=== PATIENT | female | born 1990 | race Caucasian/White ===

== ENCOUNTER 2016-10-19 10:05 | Outpatient (CLI) | payer MEDICAID ==
[~2016-10-19] VITALS: Ht 162.6 cm; Wt 89.0 kg
[~2016-10-19 10:05] MED LIST: ACET325T38 PO; ACHYD1T PO; BUTA1CAP39 PO; CEPH-507 PO; CEPH500C PO; CPR500T PO; CYCL10TA9 PO; DCS100C PO; DOCU100C37 PO; HYDR-3583 PO; HYDR-3714 PO; HYDR-3812 PO; HYDR-3820 PO; IBP800T PO; IBUP-1773 PO; Ibuprofen PO; LAXATIVE; LVT.05T; NAPR-243 PO; NITR-65 PO; NITR100C3 PO; ONDA4TAB8 PO; ONDAN4ODT PO; ONDN4T PO; PENI250T4 PO; PENI500T PO; PHEN-483 PO; PHEN200T27 PO; PREN1TAB19 PO; PREN1TAB39; PREN1TAB76 PO; SERT25TA PO; SIME80TA16 PO; SULF1TAB38 PO; TOPAMAX; TRAM50TA2 PO; TRM50T PO; flexeril; zoloft
[2016-10-19] MEDS ORDERED: PHEN-483 PO (10:14)
[2016-10-19] MEDS ORDERED: FLUO10CA29 PO (10:14)
[2016-10-19 10:17] VITALS: BP 124/84
[2016-10-19 11:00] LABS: BASOPHILS % (AUTO) 0 % (0-10); EOSINOPHILS # (AUTO) 0.1 10^3/uL (0.0-0.3); EOSINOPHILS % (AUTO) 2 % (0-10); LYMPHOCYTES % (AUTO) 30 % (12-44); MEAN CORPUSCULAR HEMOGLOBIN 29 PG (25-34); MEAN CORPUSCULAR HGB CONC 34 G/DL (32-36); MEAN CORPUSCULAR VOLUME 84 FL (80-99); MEAN PLATELET VOLUME 9.7 FL (7.4-10.4); MONOCYTES # (AUTO) 0.4 X 10^3 (0.0-1.0); MONOCYTES % (AUTO) 6 % (0-12); NEUTROPHILS # (AUTO) 4.2 X 10^3 (1.8-7.8); NEUTROPHILS % (AUTO) 63 % (42-75); PLATELET COUNT 340 10^3/uL (130-400); RED BLOOD COUNT 4.68 10^6/uL (4.35-5.85); RED CELL DISTRIBUTION WIDTH 13.1 % (10.0-14.5); WHITE BLOOD COUNT 6.6 10^3/uL (4.3-11.0)
[2016-10-26] MEDS ORDERED: SIME80TA16 PO (09:12)
[2016-10-26] MEDS ORDERED: HYDR-3816 PO (09:12)
[2016-10-26] MEDS ORDERED: DOCU100C37 PO (09:12)
[2016-10-26] MEDS ORDERED: IBUP-1773 PO (09:12)
[2016-10-27] MEDS ORDERED: OXYC-471 PO (07:28)
[2016-10-30] MEDS ORDERED: AMOX-355 PO (08:32)
[2016-10-30] MEDS ORDERED: OXYC-202 PO (08:32)
[2016-10-30] MEDS ORDERED: LACT20SO2 PO (08:32)
== END 2016-10-19 11:46 | disposition home or self-care (01) ==
LOC: PREOP 10:05
PROVIDERS: ATTEND Obstetrics & Gynecology
DX: Z01.812 Encounter for preprocedural laboratory examination (principal); N80.9 Endometriosis, unspecified
CPT/HCPCS: 36415; 85025; 86850; 86900; 86901; 87081

== ENCOUNTER 2016-10-26 06:07 | Day surgery (SDC) | payer MEDICAID ==
[~2016-10-26] VITALS: Ht 162.6 cm; Wt 89.0 kg
[~2016-10-26 06:07] MED LIST changes: +FLUO10CA29 PO
[2016-10-26] MEDS: LACTATED RINGERS 1,000 ML IV PRN ×2 (06:20→08:25)
[2016-10-26] MEDS ORDERED: metroNIDAZOLE 500MG/100ML IVPB 100 ML ONE (06:23)
[2016-10-26 06:37] VITALS: BP 110/66
[2016-10-26] MEDS ORDERED: LIDOCAINE JELLY 2% (XYLOCAINE) 5 ML TUBE ONE (06:37)
[2016-10-26] MEDS ORDERED: LIDOCAINE PF 2% 10 ML (XYLOCAINE) AMP ONE (06:37)
[2016-10-26] MEDS ORDERED: DEXAMETHASONE PF 10 MG/ML (DECADRON) VIAL ONE (06:37)
[2016-10-26] MEDS ORDERED: proPOfol 200 MG/20 ML (DIPRIVAN) VIAL IV ONE (06:37)
[2016-10-26] MEDS ORDERED: ROCURONIUM 50 MG/5 ML (ZEMURON) VIAL IV ONE (06:37)
[2016-10-26] MEDS ORDERED: MIDAZOLAM 2 MG/2 ML (VERSED) VIAL ONE (06:37)
[2016-10-26] MEDS ORDERED: fentaNYL INJECTION 250 MCG/5 ML AMP ONE (06:37)
[2016-10-26] MEDS ORDERED: ONDANSETRON 4 MG/2 ML (SDV) Z0FRAN ONE ×2 (06:37→08:57)
[2016-10-26] MEDS ORDERED: LACTATED RINGERS 1,000 ML IV ONE ×2 (06:37→08:24)
[2016-10-26] MEDS ORDERED: BUPIVACAINE 0.25% 30 ML (SENSORCAINE) VIAL ONE (06:43)
--- NOTE | 2016-10-26 06:49 | Progress Note-Pre Operative ---
Pre-Operative Progress Note H&P Reviewed The H&P was reviewed, patient examined and no changes noted. Date H&P Reviewed: Oct 26, 2016 Time H&P Reviewed: 06:50 Pre-Operative Diagnosis: CPP, Endometriosis, Dysmenorrhea, Menorrhagia PATRICIO VIEIRA DO Oct 26, 2016 6:49 am
[2016-10-26] MEDS ORDERED: metroNIDAZOLE 500 MG/100 ML IVPB (PRE-MIX) IV ONE (07:15)
[2016-10-26] MEDS ORDERED: ceFAZolin 2 GM/NS 50 ML IVPB IV ONE ×2 (07:15)
[2016-10-26] MEDS ORDERED: NEOSTIGMINE (BLOXIVERZ ) 1 MG/1ML 10 ML VIAL ONE (08:22)
[2016-10-26] MEDS ORDERED: GLYCOPYRROLATE 0.2 MG/ML (ROBINUL) 2 ML VIAL ONE (08:22)
[2016-10-26] MEDS ORDERED: morphine INJ 10 MG/ML 1ML (SYR OR VIAL) ONE ×2 (08:26→08:57)
[2016-10-26] MEDS ORDERED: SEVOFLURANE (ULTANE) 15 ML INHAL SOLN ONE (08:29)
[2016-10-26] MEDS ORDERED: MEPERIDINE (DEMEROL) INJ 50 MG/ML IVP PRN (08:45)
[2016-10-26] MEDS ORDERED: ONDANSETRON 4 MG/2 ML (SDV) Z0FRAN IVP PRN (08:45)
[2016-10-26] MEDS ORDERED: MEPERIDINE (DEMEROL) INJ 50 MG/ML ONE (08:57)
[2016-10-26] MEDS: morphine INJ 10 MG/ML 1ML (SYR OR VIAL) IVP PRN ×2 (09:06→09:18)
--- NOTE | 2016-10-26 09:10 | Discharge Inst-Women's Service ---
Discharge Inst-Women's Serv Depart Medication/Instructions New, Converted or Re-Newed RX: RX on Chart Consults/Follow Up Additional Follow Up: Yes Activity Activity: Activity as Tolerated Driving Instructions: No Driving for 1 Week NO SMOKING: NO SMOKING Nothing Inside Vagina: No Douching, No [employer], No Tampons Diet Discharge Diet: No Restrictions Symptoms to Report to : Bleeding Excessive, Pain Increased, Fever Over 101 Degrees F, Vaginal Bleeding Increase, Questions/Concerns For Any Problems or Questions: Contact Your Physician Skin/Wound Care Infection Signs and Symptoms: Increased Redness, Foul Odor of Wound, Increased Drainage, Skin Itchy or Has a Rash, Increased Swelling, Temperature Above 101 F Operative Area Clean and Dry: Keep Incision Clean/Dry Stitches/Atkins/Dermabond: Dermabond, Care of Stitches Bathing Instructions: PATRICIO Bailon DO Oct 26, 2016 9:10 am
[2016-10-26] MEDS ORDERED: IBUP-1773 PO (09:12)
[2016-10-26] MEDS ORDERED: DOCU100C37 PO (09:12)
[2016-10-26] MEDS ORDERED: HYDR-3816 PO (09:12)
[2016-10-26] MEDS ORDERED: SIME80TA16 PO (09:12)
[2016-10-26] MEDS ORDERED: ONDANSETRON 4 MG/2 ML (SDV) Z0FRAN IV PRN (09:15)
[2016-10-26] MEDS ORDERED: ANTACID SUSP 30 ML UDC (MYLANTA) PO PRN (09:15)
[2016-10-26] MEDS ORDERED: CHLORASEPTIC LOZENGE MM PRN (09:15)
[2016-10-26] MEDS ORDERED: DOCUSATE SODIUM 100 MG (COLACE) CAP PO PRN (09:15)
[2016-10-26] MEDS ORDERED: ZOLPIDEM 5 MG (AMBIEN) TAB PO PRN (09:15)
[2016-10-26] MEDS ORDERED: BUPIVACAINE 0.25% 30 ML (SENSORCAINE) VIAL INJ ONE (09:15)
[2016-10-26] MEDS: KETOROLAC 30 MG/ML VIAL IV PRN ×3 (09:17→20:17)
--- NOTE | 2016-10-26 09:21 | Progress Note-Post Operative ---
Post-Operative Progess Note Working Manager Milena Jordan Pre-Operative Diagnosis CPP, Endometriosis, Dysmenorrhea, Menorrhagia Post-Operative Diagnosis same Post-Op Procedure Note Date of Procedure: Oct 26, 2016 Name of Procedure: RATLH Anesthesia Type GETA Estimated blood loss (mL): 50 PATRICIO VIEIRA DO Oct 26, 2016 09:21
[2016-10-26 10:30] VITALS: BP 96/63
[2016-10-26] MEDS: HYDROcodone/APAP 7.5 MG/325 MG (LORTAB, LORCET PLUS) TABLET PO PRN ×2 (11:35→18:07)
[2016-10-26 11:51] VITALS: BP 98/63
[2016-10-26] MEDS: LACTATED RINGERS 1,000 ML IV SCH ×3 (12:03→22:15)
[2016-10-26] MEDS ORDERED: FLU TRIvalent (5 YOA+) 2016-17 (AFLURIA) 0.5 ML IM ONE (14:15)
[2016-10-26] MEDS ORDERED: PROMETHAZINE INJ 25 MG/ML (PHENERGAN) AMP IVP ONE (15:15)
[2016-10-26 15:25] VITALS: BP 113/65
[2016-10-26] MEDS: SIMETHICONE 80 MG (MYLICON) CHEW PO PRN (18:19)
[2016-10-26 22:15] VITALS: BP 105/59
[2016-10-27] MEDS: HYDROcodone/APAP 7.5 MG/325 MG (LORTAB, LORCET PLUS) TABLET PO PRN ×2 (00:45→06:30)
[2016-10-27 03:20] VITALS: BP 103/63
[2016-10-27] MEDS: IBUPROFEN 600 MG (MOTRIN) TAB PO PRN ×2 (03:24→09:02)
[2016-10-27] MEDS: SIMETHICONE 80 MG (MYLICON) CHEW PO PRN ×2 (04:40→09:03)
[2016-10-27] MEDS: LACTATED RINGERS 1,000 ML IV SCH (06:18)
[2016-10-27] MEDS ORDERED: HYDROmorphone (DILAUDID) 2 MG/ML VIAL ONE (07:17)
--- NOTE | 2016-10-27 07:26 | Progress Note-Standard ---
Standard Progress Note Progress Notes/Assess & Plan Progress/Assessment & Plan Patient kept overnight due to inability to urinate and pain control issues. Otherwise doing well, tolerating regular diet. Vital Sign - Last 12Hours 10/26/16 10/27/16 22:15 03:20 Temp 98.4 98.5 Pulse 80 70 Resp 18 18 B/P 105/59 103/63 Pulse Ox 100 98 O2 Delivery Room Air Room Air Intake and Output 10/27/16 00:00 Intake Total 2822 ml Output Total 450 ml Balance 2372 ml Incisions: c/d/i Diagnosis: POD 1 RATLH Urinary retention P: Drew replaced last night, remove this morning Pain med switched to percocet DC later this morning with controlled pain and urination. PATRICIO VIEIRA DO Oct 27, 2016 7:26 am
[2016-10-27] MEDS ORDERED: OXYC-471 PO (07:28)
[2016-10-27] MEDS ORDERED: HYDROmorphone (DILAUDID) 2 MG/ML VIAL IVP NR (07:30)
[2016-10-27] MEDS ORDERED: oxyCODONE/APAP 5/325MG (PERCOCET 5) TABLET PO PRN (07:30)
[2016-10-27 08:05] VITALS: BP 103/64
--- NOTE | 2016-10-27 08:36 | OPERATIVE REPORT ---
PROCEDURE PHYSICIAN: MARITO VIEIRA DATE OF PROCEDURE: 10/26/2016 PREOPERATIVE DIAGNOSIS: 1. 26-year-old female with chronic pelvic pain. 2. Endometriosis. POSTOPERATIVE DIAGNOSES: 1. 26-year-old female with chronic pelvic pain. 2. Endometriosis. 3. Pelvic dense scar tissue. PROCEDURE: Robotic assisted total laparoscopic hysterectomy with bilateral salpingectomy. SURGEON: Dr. Marito Vieira. GUIDE DOG TRAINER: Milena Jordan APRN. ANESTHESIA: General endotracheal. ESTIMATED BLOOD LOSS: 50 mL. URINE OUTPUT: 20 mL. FLUIDS: 1200 mL of lactated ringer solution. FINDINGS: Hyperemic appearing uterus with multiple filmy and dense adhesions of the anterior posterior pelvic peritoneum, dense adhesions of the bladder to the anterior lower uterine segment, grossly normal appearing bilateral ovaries. SPECIMEN SENT: Uterus, bilateral fallopian tubes. INDICATIONS FOR THE PROCEDURE: This 26-year-old female is a patient who is well establish in my office and I have been taking care of her for the last 3 years. She has undergone 2 pregnancies under my care; both of which were complicated by chronic pelvic pain as well as necessitating . Prior to this last the patient had tried multiple contraceptive methods to help prevent recurrence of endometriosis as she has an ongoing diagnosis of this. We have attempted Depo-Provera. We attempted Mirena IUD. We attempted oral contraceptive pills all with no improvement in her pain. During this last , we both had discussed extensively proceeding with hysterectomy after the was complete. The risk of this was discussed with the patient throughout the . At her visit we once again revisited this and the patient was very agreeable to move forward due to failed conservative measures. The risk of the procedure was discussed with the patient in detail including risk of bleeding, infection, damaging any of the surrounding structures, including, but not limited to the bowel, bladder, ureter, damage to the anterior abdominal wall, possible risk of bleeding and need for blood transfusion, risk from anesthesia, hematoma formation, risk for subsequent procedures any complications should occur, even . After everything was discussed with the patient, consent was obtained in the preoperative area and the patient was taken to the operating room. OPERATIVE REPORT IN DETAIL: Once in the operating room, general anesthesia was found to be adequate. She was placed in dorsal lithotomy position, prepped and draped in the normal sterile fashion. Drew catheter was placed using sterile technique. A weighted speculum was inserted in the patient's vagina. A right angle retractor was used to visualize the cervix. It was grasped at the 12 o'clock position using a single tooth tenaculum. An 0 Vicryl suture was placed through the anterior lip of the cervix and the uterine cavity depth is sounded and found to be 8 cm. I then gently dilate the cervix using Hegar dilators and maximum dilatation of 5 mm. I then advanced an 8 mm uterine manipulator balloon on the end of the KIMBERLI and deploy the balloon. I advance a 3.5 cm colpotomy ring into the vaginal fornix, which offers excellent uterine manipulation on bimanual examination. I then perform a change of gloves and take my attention the abdomen where supraumbilically I infiltrate this area using 0.25% Marcaine and make an 8 mm incision and direct a Veress needle through this incision until intraperitoneal placement is confirmed using the saline drop test. An opening pressure 2 mmHg is noted. I proceed to maximum pressure of 15 mmHg using CO2 gas as my insufflation medium. I then remove the Veress needle, introduce an 8 mm blunt da Qiana camera trocar through this incision until intraperitoneal placement is confirmed using the da Qiana laparoscope. I then have the patient placed in steep Trendelenburg and I am able to visualize all the anatomy described in my findings above. I then place lateral trocars; these are both 8 mm trocars. They are placed under direct visualization of the laparoscope. Incisions are made using a knife and the skin is infiltrated using 0.25% Marcaine. Once the trocars are in place, I bring the da Qiana robot and dock it in the appropriate fashion. I perform the following of the procedure using the following instruments; I place the da Qiana vessel sealer in the left hand and monopolar kevyn in the right hand. The following dissection is performed bilaterally. I start at the utero-ovarian ligament, bipolar cauterize this and transect it using the vessel sealer. I then create a window through the mesosalpinx using the monopolar kevyn and take this distally, amputating the fallopian tube from the surrounding structures. I then grasp the round ligament, bipolar cauterize this and transect it using the vessel sealer. I then grasp the entire broad ligament, which is densely scarred to the anterior posterior peritoneum down to the level of the lower uterine segment. There are dense adhesions so I have to take this dissection down with care. There is also dense adhesions to the anterior vaginal fornix in the lower uterine segment. I very carefully take down the bladder flap over the lower uterine segment which exposes the anterior vaginal fornix. I then enter the anterior vaginal fornix using the monopolar kevyn which I am able to visualize the anterior cuff of the KIMBERLI uterine manipulator at that point. I then take the posterior leaflet of the broad ligament down to the posterior vaginal fornix which allows me to skeletonize the uterine vessels bilaterally. Once they are skeletonized, I bipolar cauterize them and transect them using the vessel sealer. This allows me a circumferential view of the vaginal fornix at which point I use a monopolar shear to amputate the cervix away from the vaginal fornix. The uterus, cervix and bilateral fallopian tubes are then removed through the vagina. I then close the vaginal cuff using 2-0 Vicryl suture in a [id number] fashion. The lateral vaginal apices, colposuspending them to the uterosacral ligaments. I then close the remainder of the cuff using 2-0 V-Loc in a running fashion. There is no active bleeding noted from any my dissection planes after this is completed. I then undock the da Qiana robot and copiously irrigate the pelvis using normal saline and traditional laparoscopic technique. I then place FloSeal hemostatic agent over all my planes of dissection. I place in steep Trendelenburg and remove the lateral trocars under visualization of the laparoscope. The infraumbilical trocar is used to release insufflation. I introduced 10 mL of 0.25% Marcaine into the peritoneal cavity for postoperative pain management. I then remove the supraumbilical trocar and closed the incisions using 4-0 Monocryl in an interrupted subcuticular stitches stitch. Dermabond is applied to the incisions and Band-Aids are placed over these. Drew catheter was left in place. The patient tolerated the procedure well and was taken to the recovery area in stable condition. Lap and sponge counts were correct at the end of the procedure. Instrument count is correct as well. 2 grams of Ancef and 500 mg of Flagyl given preoperatively for infection prophylaxis Job ID: [id number] Dictated Date: 10/26/2016 09:28:45 Assistant Professor Of Communication Date: 10/27/2016 08:18:39 / matt
--- NOTE | 2016-10-27 12:54 | Anesthesia-General Post-Op ---
General Patient Condition Mental Status/LOC: Same as Preop Cardiovascular: Satisfactory Nausea/Vomiting: Absent Respiratory: Satisfactory Pain: Controlled Complications: Absent Post Op Complications Complications None Follow Up Care/Instructions Patient Instructions None needed. Anesthesia/Patient Condition Patient Condition Patient is doing well, no complaints, stable vital signs, no apparent adverse anesthesia problems. No complications reported per nursing. STEFAN GARVIN CRNA Oct 27, 2016 12:54
[2016-10-30] MEDS ORDERED: AMOX-355 PO (08:32)
[2016-10-30] MEDS ORDERED: LACT20SO2 PO (08:32)
[2016-10-30] MEDS ORDERED: OXYC-202 PO (08:32)
== END 2016-10-27 13:48 | disposition home or self-care (01) ==
LOC: SDC 06:07 → WS 09:50 → SDC 10-27 13:48
PROVIDERS: ATTEND Obstetrics & Gynecology
DX: R10.2 Pelvic and perineal pain (principal); N73.6 Female pelvic peritoneal adhesions (postinfective); R33.9 Retention of urine, unspecified; N94.5 Secondary dysmenorrhea; Z87.42 Personal history of other diseases of the female genital tract
CPT/HCPCS: 84703; 94664; 96361; 96375; 96376

== ENCOUNTER 2016-10-28 10:01 | Observation (INO) | payer MEDICAID ==
[~2016-10-28] VITALS: Ht 162.6 cm; Wt 83.0 kg
[~2016-10-28 10:01] MED LIST changes: +HYDR-3816 PO; +OXYC-471 PO
--- NOTE | 2016-10-28 10:48 | ED EENT ---
History of Present Illness General Chief Complaint: Facial Problems Stated Complaint: POST OP/R SIDE FACIAL SWELLING Nursing Triage Note: PT HAS R SIDED FACIAL SWELLING SINCE YESTERDAY. Source: patient History of Present Illness Time seen by provider: 10:42 Initial Comments The patient is a 26-year-old white female who had a vaginal hysterectomy performed here on 10/26. She reports that she was warned that she might have some facial swelling postoperatively as a function of the surgery. She noted swelling and pointed out to the nurses on her discharge yesterday. There continues to be increasing swelling and pain in the right face from the brow to the jaw. She has noted a missing tooth that she was not aware of previously either Location: eye (R), facial Prearrival Treatment: no prearrival treatment Allergies and Home Medications Allergies Coded Allergies: No Known Drug Allergies (Unverified , 10/19/16) Home Medications Butalb/Acetaminophen/Caffeine 1 Each Capsule 1 EACH PO Q6H PRN PRN MIGRAINE ( Reported) Docusate Sodium 100 Mg Capsule #40 100 MG PO BID PRN PRN CONSTIPATION Prescribed by: PATRICIO VIEIRA on 10/26/16911 Fluoxetine HCl 10 Mg Capsule 10 MG PO DAILY (Reported) Hydrocodone/Acetaminophen 1 Each Tablet #50 1-2 EA PO Q6H PRN PRN PAIN Prescribed by: PATRICIO VIEIRA on 10/26/16911 Ibuprofen 600 Mg Tablet #80 600 MG PO Q6H PRN PRN PAIN Prescribed by: PATRICIO VIEIRA on 10/26/16911 Oxycodone HCl/Acetaminophen 1 Each Tablet #50 2 TAB PO Q4H PRN PRN MODERATE PAIN Prescribed by: PATRICIO VIEIRA on 10/27/16727 Simethicone 80 Mg Tab.chew #40 40 MG PO TID PRN PRN INDIGESTION Prescribed by: PATRICIO VIEIRA on 10/26/16911 Review of Systems Constitutional: see HPI Eyes: Other (swelling and tearing) Ears: No Symptoms Reported Nose: no symptoms reported Mouth: loose teeth pain Throat: no symptoms reported Respiratory: no symptoms reported Cardiovascular: no symptoms reported Past Cjcahdn-Isrjpe-Xpkrrw Hx Patient Social History Alcohol Use: Denies Use Recreational Drug Use: No Smoking Status: Current Everyday Smoker Type Used: Cigarettes Former Smoker/When Quit: Aug 31, 2013 Recent Foreign Travel: No Contact w/Someone Who Travel: No Recent Infectious Disease Expo: No Recent Hopitalizations: Yes (PARTIAL HYST) Physical Abuse Screen: No Sexual Abuse: No Immunizations Up To Date Tetanus Booster (TDap): More than 5yrs PED Vaccines UTD: Yes Seasonal Allergies Seasonal Allergies: No Surgeries HX Surgeries: Yes (CS X4) Surgeries: Section, Hysterectomy Respiratory Hx Respiratory Disorders: Yes ( A CHILD) Respiratory Disorders: Asthma Cardiovascular Hx Cardiac Disorders: No Neurological Hx Neurological Disorders: Yes ("SEIZURE ACTIVITY"- RELATED) Neurological Disorders: Headaches /Migraines, TIA Reproductive System Hx Reproductive Disorders: Yes (CPP, DYSMENORRHIA) Sexually Transmitted Disease: No HIV/AIDS: No Female Reproductive Disorders: Menstrual Problems, Endometriosis, Ovarian Cyst Genitourinary Hx Genitourinary Disorders: No Genitourinary Disorders: Kidney Infection, Bladder Infection Gastrointestinal Hx Gastrointestinal Disorders: No Musculoskeletal Hx Musculoskeletal Disorders: No Endocrine Hx Endocrine Disorders: No HEENT HX ENT Disorders: Yes (GLASSES) Loss of Vision: Bilateral Hearing Impairment: Denies Cancer Hx Cancer: No Psychosocial Hx Psychiatric Problems: Yes Behavioral Health Disorders: Anxiety, Depression Integumentary HX Skin/Integumentary Disorder: No Skin/Integumentary Disorders: Recent Skin Changes Blood Transfusions Hx Blood Disorders: No Adverse Reaction to a Blood Tr: No Family Medical History Significant Family History: No Pertinent Family Hx Family Medial History: Diabetes mellitus Family history: Hypertension 19 MOTHER Hereditary disease daughter (Alec Henry's syndrome) Stroke 19 FATHER Physical Exam Vital Signs Vital Sign - Last 12Hours 10/28/16 10:23 Temp 98.9 Pulse 75 Resp 16 B/P 127/82 Pulse Ox 98 O2 Delivery Room Air General Appearance: mild distress Eyes: bilateral eye normal inspection Nose: normal inspection Mouth/Throat: dental tenderness Neck: non-tender full range of motion supple normal inspection Cardiovascular: normal peripheral pulses regular rate, rhythm no edema no gallop no JVD no murmur Gastrointestinal: normal bowel sounds non tender soft no organomegaly no pulsatile mass tenderness spleenomegaly Progress/Results/Core Measures Results/Orders Lab Results Laboratory Tests Test 10/28/16 10:45 Range/Units Alanine Aminotransferase (ALT/SGPT) 76 H 0-55 U/L Albumin 3.5 3.2-4.5 G/DL Alkaline Phosphatase 67 40-136 U/L Anion Gap 8 5-14 MMOL/L Aspartate Amino Transf (AST/SGOT) 44 H 5-34 U/L BUN/Creatinine Ratio 7 Basophils # (Auto) 0.0 0.0-0.1 10^3/uL Basophils (%) (Auto) 0 0-10 % Blood Urea Nitrogen 5 L 7-18 MG/DL Calcium Level 8.4 L 8.5-10.1 MG/DL Carbon Dioxide Level 24 21-32 MMOL/L Chloride Level 106 98-107 MMOL/L Creatinine 0.75 0.60-1.30 MG/DL Eosinophils # (Auto) 0.2 0.0-0.3 10^3/uL Eosinophils (%) (Auto) 3 0-10 % Estimat Glomerular Filtration Rate > 60 Glucose Level 84 70-105 MG/DL Hematocrit 37 35-52 % Hemoglobin 12.1 11.5-16.0 G/DL Lymphocytes # (Auto) 1.8 1.0-4.0 X 10^3 Lymphocytes (%) (Auto) 21 12-44 % Mean Corpuscular Hemoglobin 29 25-34 PG Mean Corpuscular Hemoglobin Concent 33 32-36 G/DL Mean Corpuscular Volume 87 80-99 FL Mean Platelet Volume 9.1 7.4-10.4 FL Monocytes # (Auto) 0.6 0.0-1.0 X 10^3 Monocytes (%) (Auto) 7 0-12 % Neutrophils # (Auto) 6.0 1.8-7.8 X 10^3 Neutrophils (%) (Auto) 70 42-75 % Platelet Count 270 130-400 10^3/uL Potassium Level 4.0 3.6-5.0 MMOL/L Red Blood Count 4.23 L 4.35-5.85 10^6/uL Red Cell Distribution Width 13.3 10.0-14.5 % Sodium Level 138 135-145 MMOL/L Total Bilirubin 0.4 0.1-1.0 MG/DL Total Protein 6.4 6.4-8.2 G/DL White Blood Count 8.6 4.3-11.0 10^3/uL My Orders Orders-ROBERT LARKIN MD Cbc With Automated Diff (10/28/16 10:36) Comprehensive Metabolic Panel (10/28/16 10:36) Iohexol Injection (Omnipaque 350 Mg/Ml 1 (10/28/16 11:00) Ns (Ivpb) (Sodium Chloride 0.9% Ivpb Bag (10/28/16 11:00) Saline Lock/Iv-Start (10/28/16 10:59) Medications Given in ED Current Medications Medications Dose Ordered Sig/Jenna Route Start Time Stop Time Status Last Admin Dose Admin Iohexol 75 ml ONCE ONCE IV 10/28/16 11:00 10/28/16 11:01 DC 10/28/16 11:07 75 ML Sodium Chloride 100 ml ONCE ONCE IV 10/28/16 11:00 10/28/16 11:01 DC 10/28/16 11:07 80 ML Vital Signs/I&O Vital Sign - Last 12Hours 10/28/16 10:23 Temp 98.9 Pulse 75 Resp 16 B/P 127/82 Pulse Ox 98 O2 Delivery Room Air Blood Pressure Mean: 97 Departure Communication Progress Notes Tooth marked number 1 reveals a scummy crater. Tooth number 2 is fractured. There is redness warmth and swelling of the right face from the upper border of the brow to the mandible. The mandibular teeth are in reasonable repair. The maxillary teeth are missing or in poor repair 1211 the patient reports that she has a disabled daughter, a 2-year-old daughter , and a 2-month-old. She was informed that the CT scan showed diffuse cellulitis and early abscess formation and that she needed to stay for IV antibiotics. She had difficulty processing this and reports that today she had to be home I couldn't she take oral antibiotics. She was informed that it would be unlikely to achieve a high enough blood level to be useful in the treatment and the progression of an abscess could be a disaster. The supervisor shuttle fitting was called and offered to place to [employer] for her children in her room if she could supervise. She continues to express distress over this prospect. Her friends who are at her bedside are attempting to agency legal counsel her to stay [id number]. She is calm are now has arranged for supervision of the eldest child with the 2 younger being in her room Impression Impression: Primary Impression: Cellulitis of face Additional Impression: dental abscess Disposition: ADMITTED INPATIENT Condition: Stable/Unchanged Decision to Admit Reason: Admit from ER (General) Decision to Admit/Date: Oct 28, 2016 Time/Decision to Admit Time: 12:41 Departure-Patient Inst. Referrals: LASHONDA JOINER MD (PCP) Primary Care Physician Images Mouth/Nose 1 - 2 - Fracture Tooth ROBERT LARKIN MD Oct 28, 2016 10:48
[2016-10-28 10:53] LABS: BASOPHILS % (AUTO) 0 % (0-10); EOSINOPHILS # (AUTO) 0.2 10^3/uL (0.0-0.3); EOSINOPHILS % (AUTO) 3 % (0-10); LYMPHOCYTES # (AUTO) 1.8 X 10^3 (1.0-4.0); LYMPHOCYTES % (AUTO) 21 % (12-44); MEAN CORPUSCULAR HEMOGLOBIN 29 PG (25-34); MEAN CORPUSCULAR HGB CONC 33 G/DL (32-36); MEAN CORPUSCULAR VOLUME 87 FL (80-99); MEAN PLATELET VOLUME 9.1 FL (7.4-10.4); MONOCYTES # (AUTO) 0.6 X 10^3 (0.0-1.0); MONOCYTES % (AUTO) 7 % (0-12); NEUTROPHILS % (AUTO) 70 % (42-75); PLATELET COUNT 270 10^3/uL (130-400); RED BLOOD COUNT 4.23 10^6/uL (4.35-5.85); RED CELL DISTRIBUTION WIDTH 13.3 % (10.0-14.5); WHITE BLOOD COUNT 8.6 10^3/uL (4.3-11.0)
[2016-10-28] MEDS ORDERED: NS 100 ML (IVPB) BAG IV ONE (11:00)
[2016-10-28] MEDS ORDERED: IOHEXOL 350 MG/ML 100 ML (OMNIPAQUE 350) VIAL IV ONE (11:00)
[2016-10-28 11:12] LABS: ALANINE AMINOTRANSFERASE 76 U/L (0-55); ALBUMIN 3.5 G/DL (3.2-4.5); ANION GAP 8 MMOL/L (5-14); ASPARTATE AMINO TRANSFERASE 44 U/L (5-34); BILIRUBIN,TOTAL 0.4 MG/DL (0.1-1.0); BLOOD UREA NITROGEN 5 MG/DL (7-18); BUN/CREATININE RATIO 7; CALCIUM 8.4 MG/DL (8.5-10.1); CARBON DIOXIDE 24 MMOL/L (21-32); CHLORIDE 106 MMOL/L (98-107); CREATININE SERUM 0.75 MG/DL (0.60-1.30); GFR ESTIMATED > 60; GLUCOSE 84 MG/DL (70-105); SODIUM 138 MMOL/L (135-145); TOTAL PROTEIN 6.4 G/DL (6.4-8.2)
--- NOTE | 2016-10-28 11:35 | Diagnostic Imaging Report ---
PROCEDURE: CT maxillofacial with contrast. TECHNIQUE: After intravenous administration of contrast, axial images were obtained through the face and reformatted into coronal and sagittal planes. INDICATION: Face pain. COMPARISON: None. FINDINGS: There is moderate inflammation involving the right cheek within the subcutaneous tissues. There is a low-density lesion which abuts the surface of the right lateral maxilla with adjacent apical loosening. There is some slight rim enhancement. The lesion measures approximately 10 mm and likely represents a phlegmon or evolving abscess. This does not contain internal gas. Considerable dental disease is seen involving the mandibular and maxillary molars more so on the right. Mucous retention cyst is seen in the maxillary sinuses. No air-fluid levels are seen. There is no fracture or overt evidence of osteomyelitis. IMPRESSION: 1. Considerable inflammation involving the soft tissues involving the right cheek adjacent to a significant periapical lucency of the mandibular and maxillary molars, likely cellulitis. 2. Low-density collection adjacent to the right maxilla probably representing an evolving abscess and/or phlegmon. 3. Advanced dental disease. Dictated by: Dictated on workstation # [id number]
[2016-10-28] MEDS ORDERED: ceFAZolin 2 GM/50 ML NS 50 ML IV ONE (12:45)
[2016-10-28] MEDS ORDERED: NORMAL SALINE (BAXTER MINI) 50 ML IV ONE (12:50)
[2016-10-28] MEDS: ceFAZolin 1,000 MG (ANCEF) VIAL ONE ×2 (13:08→13:12)
[2016-10-28] MEDS ORDERED: ceFAZolin INJECTION 2,000 MG in NORMAL SALINE (BAXTER MINI) 50 ML IV ONE (13:15)
[2016-10-28] MEDS ORDERED: HYDROcodone/APAP 7.5 MG/325 MG (LORTAB, LORCET PLUS) TABLET PO ONE (13:15)
[2016-10-28] MEDS ORDERED: HYDROcodone/APAP 7.5 MG/325 MG (LORTAB, LORCET PLUS) TABLET PO PRN (13:30)
[2016-10-28] MEDS ORDERED: NS IV 1000 ML 1,000 ML IV SCH (13:30)
[2016-10-28] MEDS ORDERED: CATHETER FLUSH 10 ML SYR IV PRN (13:30)
[2016-10-28 13:49] VITALS: BP 119/75
[2016-10-28] MEDS ORDERED: FLU TRIvalent (5 YOA+) 2016-17 (AFLURIA) 0.5 ML IM ONE (14:00)
[2016-10-28] MEDS ORDERED: ACETAMINOPHEN 500 MG TAB (TYLENOL) PO PRN (14:30)
[2016-10-28] MEDS ORDERED: HYDROmorphone (DILAUDID) 2 MG/ML VIAL IVP PRN (14:30)
[2016-10-28] MEDS ORDERED: ONDANSETRON 4 MG/2 ML (SDV) Z0FRAN IVP PRN (14:30)
[2016-10-28] MEDS ORDERED: ALPRAZolam 0.25 MG (XANAX) TAB PO PRN (14:30)
[2016-10-28] MEDS: oxyCODONE/APAP 10/325MG (PERCOCET 10) TABLET PO PRN ×2 (15:03→20:20)
[2016-10-28 16:40] VITALS: BP 120/75
[2016-10-28 20:05] VITALS: BP 131/68
[2016-10-28] MEDS: ceFAZolin INJECTION 2,000 MG in NS (IVPB) 50 ML IV SCH (20:19)
[2016-10-29] VITALS (7 sets, daily range): BP systolic 99–135; BP diastolic 57–81
[2016-10-29] MEDS: oxyCODONE/APAP 10/325MG (PERCOCET 10) TABLET PO PRN ×5 (00:47→20:21)
[2016-10-29] MEDS: ceFAZolin INJECTION 2,000 MG in NS (IVPB) 50 ML IV SCH ×3 (04:32→20:11)
[2016-10-29] MEDS ORDERED: fentaNYL INJECTION 100 MCG/2 ML AMP IVP PRN (11:15)
[2016-10-29] MEDS: SIMETHICONE 80 MG (MYLICON) CHEW PO PRN ×2 (11:22→11:25)
[2016-10-29] MEDS: DOCUSATE SODIUM 100 MG (COLACE) CAP PO PRN (11:24)
[2016-10-29] MEDS: IBUPROFEN 600 MG (MOTRIN) TAB PO PRN ×2 (11:24→17:11)
[2016-10-29] MEDS ORDERED: BISACODYL 10 MG SUPP (DULCOLAX) PR PRN (12:15)
--- NOTE | 2016-10-29 12:42 | History & Physical-Hospitalist ---
HPI History of Present Illness: HPI/Chief Complaint CC: Right tooth abscess HPI: This is a patient of Dr Packer' w/h/o Hyst by Dr Dunlap 3 days ago that presents to the ER with right-sided facial swelling. She just had surgery by Dr. DUNLAP and was having some difficulties with a molar intending to have all of her teeth removed once her tax return refund was processed but reported the pain and swelling that had increased even though she was placed on antibiotics orally. She reluctantly agreed to staying in the hospital for IV antibiotics because she has a 2-month-old child and a 2-year-old along with 2 other children. She is overall much improved since receiving IV antibiotics and pain medication but is still having some constipation from the hysterectomy. Overall the plan will be community mental health social worker consult and hopefully discharge to Dr. Aponte's office tomorrow to drain abscess and ultimately continue oral antibiotics and close follow-up for dental extraction is planned. Source: patient Exam Limitations: no limitations Date Seen 10/29/16 Attending Physician Eli Sherwood Rachel L MD Referring Physician Date of Admission Oct 28, 2016 at 12:49 Home Medications & Allergies Home Medications Reviewed patient Home Medication Reconciliation Form Allergies Coded Allergies: No Known Drug Allergies (Unverified , 10/19/16) Past Qpbcgam-Auoacw-Lydtgf Hx Patient Social History Alcohol Use: Denies Use Recreational Drug Use: No Smoking Status: Current Everyday Smoker Former smoker/When Quit: Aug 31, 2013 Type Used: Cigarettes Physical Abuse Screen: No Sexual Abuse: No Recent Foreign Travel: No Contact w/other who traveled: No Recent Hopitalizations: Yes (PARTIAL HYST) Recent Infectious Disease Expo: No Immunizations Up To Date Tetanus Booster (TDap): More than 5yrs Seasonal Allergies Seasonal Allergies: No Surgeries HX Surgeries: Yes (CS X4) Surgeries: Section, Hysterectomy (10/25/16 Dr Dunlap) Respiratory Hx Respiratory Disorders: Yes ( A CHILD) Cardiovascular Hx Cardiovascular Disorders: No Neurological Hx Neurological Disorders: Yes ("SEIZURE ACTIVITY"- RELATED) Neurological Disorders: Headaches /Migraines, TIA Reproductive System Hx Reproductive Disorders: Yes (CPP, DYSMENORRHIA) Sexually Transmitted Disease: No HIV/AIDS: No Female Reproductive Disorders: Menstrual Problems, Endometriosis, Ovarian Cyst Genitourinary Hx Genitourinary Disorders: No Genitourinary Disorders: Kidney Infection, Bladder Infection Gastrointestinal Hx Gastrointestinal Disorders: No Musculoskeletal Hx Musculoskeletal Disorders: No Endocrine Hx Endocrine Disorders: No HEENT HX ENT Disorders: Yes (GLASSES) Loss of Vision: Bilateral Hearing Impairment: Denies Cancer Hx Cancer: No Psychosocial Hx Psychiatric Problems: Yes Behavioral Health Disorders: Anxiety, Depression Integumentary HX Skin/Integumentary Disorder: No Skin/Integumentary Disorders: Recent Skin Changes Blood Transfusions Hx Blood Disorders: No Adverse Reaction to a Blood Tr: No Family Medical History Significant Family History: No Pertinent Family Hx Family Hx: Diabetes mellitus Family history: Hypertension 19 MOTHER Hereditary disease daughter (Alec Henry's syndrome) Stroke 19 FATHER Review of Systems Constitutional: see HPI weakness EENTM: mouth pain Respiratory: no symptoms reported Cardiovascular: no symptoms reported Gastrointestinal: constipation Genitourinary: no symptoms reported Musculoskeletal: no symptoms reported Skin: no symptoms reported Psychiatric/Neurological: No Symptoms Reported All Other Systems Reviewed Negative Unless Noted: Yes Physical Exam Physical Exam Vital Signs Vital Sign - Last 12Hours 10/28/16 10:23 Temp 98.9 Pulse 75 Resp 16 B/P 127/82 Pulse Ox 98 O2 Delivery Room Air Capillary Refill : Less Than 3 Seconds General Appearance: No Apparent Distress WD/WN Eyes: Bilateral Eye Normal Inspection, Bilateral Eye PERRL HEENT: PERRL/EOMI Normal ENT Inspection Pharynx Normal Other (right facial swelling and erythema much improved) Neck: Full Range of Motion Normal Inspection Non Tender Supple Carotid Bruit Respiratory: Chest Non Tender Lungs Clear Normal Breath Sounds No Accessory Muscle Use No Respiratory Distress Cardiovascular: Regular Rate, Rhythm No Edema No Gallop No JVD No Murmur Normal Peripheral Pulses Gastrointestinal: Normal Bowel Sounds No Organomegaly No Pulsatile Mass Non Tender Soft Back: Normal Inspection No CVA Tenderness No Vertebral Tenderness Extremity: Normal Capillary Refill Normal Inspection Normal Range of Motion Non Tender No Calf Tenderness No Pedal Edema Neurologic/Psychiatric: Alert Oriented x3 No Motor/Sensory Deficits Normal Mood/Affect Skin: Normal Color Warm/Dry Lymphatic: No Adenopathy Results Results/Procedures Lab Laboratory Tests 10/28/16 10:45 Assessment/Plan Admission Diagnosis Assessment: Severe dental abscess with facial swelling and erythema requiring IV antibiotics due to failure of by mouth antibiotics Recent hysterectomy by Dr. DUNLAP Postop constipation Assessment and Plan Continue IV antibiotics and fentanyl and Percocet for pain Lactulose and stool softeners and home medication Hopefully oral surgery can see her tomorrow and remove abscess and placed back on oral antibiotics and proceeding on with dental extraction is planned Clinical Quality Measures DVT/VTE Risk/Contraindication: Risk Factor Score Per Nursin RFS Level Per Nursing on Admit: 3=High ELI SHERWOOD DO Oct 29, 2016 12:42
[2016-10-29] MEDS: LACTULOSE SYRUP 10GM/15ML (ENULOSE) 30ML UDC PO SCH ×2 (17:10→22:02)
[2016-10-30] MEDS: ceFAZolin INJECTION 2,000 MG in NS (IVPB) 50 ML IV SCH ×2 (03:35→12:04)
[2016-10-30] MEDS: oxyCODONE/APAP 10/325MG (PERCOCET 10) TABLET PO PRN ×2 (05:21→09:36)
[2016-10-30 05:44] LABS: BASOPHILS % (AUTO) 0 % (0-10); EOSINOPHILS # (AUTO) 0.2 10^3/uL (0.0-0.3); EOSINOPHILS % (AUTO) 3 % (0-10); LYMPHOCYTES # (AUTO) 1.9 X 10^3 (1.0-4.0); LYMPHOCYTES % (AUTO) 29 % (12-44); MEAN CORPUSCULAR HEMOGLOBIN 29 PG (25-34); MEAN CORPUSCULAR HGB CONC 33 G/DL (32-36); MEAN CORPUSCULAR VOLUME 87 FL (80-99); MEAN PLATELET VOLUME 9.8 FL (7.4-10.4); MONOCYTES # (AUTO) 0.4 X 10^3 (0.0-1.0); MONOCYTES % (AUTO) 6 % (0-12); NEUTROPHILS # (AUTO) 4.1 X 10^3 (1.8-7.8); NEUTROPHILS % (AUTO) 62 % (42-75); PLATELET COUNT 279 10^3/uL (130-400); RED BLOOD COUNT 3.99 10^6/uL (4.35-5.85); RED CELL DISTRIBUTION WIDTH 13.1 % (10.0-14.5); WHITE BLOOD COUNT 6.6 10^3/uL (4.3-11.0)
[2016-10-30 05:59] LABS: ALANINE AMINOTRANSFERASE 61 U/L (0-55); ALBUMIN 3.2 G/DL (3.2-4.5); ANION GAP 7 MMOL/L (5-14); ASPARTATE AMINO TRANSFERASE 45 U/L (5-34); BILIRUBIN,TOTAL 0.2 MG/DL (0.1-1.0); BLOOD UREA NITROGEN 5 MG/DL (7-18); BUN/CREATININE RATIO 7; CALCIUM 8.6 MG/DL (8.5-10.1); CARBON DIOXIDE 26 MMOL/L (21-32); CHLORIDE 105 MMOL/L (98-107); GFR ESTIMATED > 60; GLUCOSE 83 MG/DL (70-105); POTASSIUM 4.3 MMOL/L (3.6-5.0); SODIUM 138 MMOL/L (135-145); TOTAL PROTEIN 6.2 G/DL (6.4-8.2)
[2016-10-30 08:00] VITALS: BP 142/85
[2016-10-30] MEDS ORDERED: LACT20SO2 PO (08:32)
[2016-10-30] MEDS ORDERED: OXYC-202 PO (08:32)
[2016-10-30] MEDS ORDERED: AMOX-355 PO (08:32)
--- NOTE | 2016-10-30 08:34 | Discharge Instructions ---
Discharge Instructions Discharge Medications New, Converted or Re-Newed RX: Transmitted to Pharmacy New Medications: Amoxicillin/Potassium Clav (Augmentin 500-125 Tablet) 1 Each Tablet 1 EACH PO BID #14 TAB Oxycodone HCl/Acetaminophen (Percocet 10-325 mg Tablet) 1 Each Tablet 1 EACH PO Q4H PRN PAIN #40 TAB Lactulose (Lactulose) 20 Gm/30 Ml Solution 10 GM PO BID #8 OZ Continued Medications: Butalb/Acetaminophen/Caffeine (Fioricet 50-300-40 mg Capsule) 1 Each Capsule 1 EACH PO Q6H PRN MIGRAINE CAP Docusate Sodium (Docusate Sodium) 100 Mg Capsule 100 MG PO BID PRN CONSTIPATION #40 CAP Fluoxetine HCl (Prozac) 10 Mg Capsule 10 MG PO DAILY CAP Ibuprofen (Ibuprofen) 600 Mg Tablet 600 MG PO Q6H PRN PAIN #80 TAB Simethicone (Simethicone) 80 Mg Tab.chew 40 MG PO TID PRN INDIGESTION #40 TAB Discontinued Medications: Hydrocodone/Acetaminophen (Hydrocodon-Acetaminoph 7.5-325) 1 Each Tablet 1-2 EA PO Q6H PRN PAIN #50 TAB Oxycodone HCl/Acetaminophen (Oxycodone-Acetaminophen 5-325) 1 Each Tablet 2 TAB PO Q4H PRN MODERATE PAIN #50 TAB Patient Instructions Goal/Follow Up Appt: Dr Aponte as scheduled for tooth abscess drainage Dr Dunlap as scheduled Obtain ultrasound of liver as scheduled due to pain Activity & Diet Discharge Diet: No Restrictions Activity as Tolerated: Yes ANGEL SHERWOOD DO Oct 30, 2016 08:34
--- NOTE | 2016-10-30 08:38 | Discharge Summary-Hospitalist ---
Diagnosis/Chief Complaint Date of Admission Oct 28, 2016 at 12:49 Date of Discharge Discharge Date: Oct 30, 2016 Admission Diagnosis Assessment: Severe dental abscess with facial swelling and erythema requiring IV antibiotics due to failure of by mouth antibiotics Recent hysterectomy by Dr. DUNLAP Postop constipation Discharge Diagnosis Assessment: Severe dental abscess with facial swelling and erythema requiring IV antibiotics due to failure of by mouth antibiotics Recent hysterectomy by Dr. DUNLAP Postop constipation RUQ abdominal pain w/mild elevation in LFT's but normal bilirubin so ordered acute hepatitis panel and USG to be scheduled as outpt Continue IV antibiotics and fentanyl and Percocet for pain Lactulose and stool softeners and home medication Hopefully oral surgery can see her tomorrow and remove abscess and placed back on oral antibiotics and proceeding on with dental extraction is planned Reason Hospital Visit/Course CC: Right tooth abscess HPI: This is a patient of Dr Packer' w/h/o Hyst by Dr Dunlap 3 days ago that presents to the ER with right-sided facial swelling. She just had surgery by Dr. DUNLAP and was having some difficulties with a molar intending to have all of her teeth removed once her tax return refund was processed but reported the pain and swelling that had increased even though she was placed on antibiotics orally. She reluctantly agreed to staying in the hospital for IV antibiotics because she has a 2-month-old child and a 2-year-old along with 2 other children. She is overall much improved since receiving IV antibiotics and pain medication but is still having some constipation from the hysterectomy. Overall the plan will be long term care social worker consult and hopefully discharge to Dr. Aponte's office tomorrow to drain abscess and ultimately continue oral antibiotics and close follow-up for dental extraction is planned. Note from 10/30/16: Patient doing well but still struggling with constipation Right upper quadrant abdominal pain due to constipation has been an issue but not severe enough to require stay in hospital so we'll obtain hepatitis panel to rule out viral hepatitis due to elevated liver enzymes and ultrasound as an outpatient to evaluate liver and gallbladder. The right side of her face is much improved with IV antibiotics and just requiring Percocet for pain. Dr. Aponte appointment pending at this time but will need abscess drained ultimately No fever, vital stable, pleasant, oriented 3, improved Right sided face much improved with only minimal erythema under the right eye no edema Hospital course: Patient a brief hospital course she required IV antibiotics due to the severity of the tooth abscess that had progressed to facial cellulitis so she improved rapidly with IV antibiotics and Percocet for pain in addition to IV pain medication as needed. Postop constipation from hysterectomy required laxatives then on day of discharge soapsuds enema to begin the evacuation process. She will go home on lactulose due to the severity of her constipation. Appointment was made with Dr. Foster for close follow -up for tooth abscess drainage along with Dr. DUNLAP for postop care from hysterectomy then will obtain ultrasound to evaluate liver status and add-on acute viral hepatitis panel to today's labs and follow-up with that. Discharge Summary Discharge Physical Examination Allergies: Coded Allergies: No Known Drug Allergies (Unverified , 10/19/16) Vitals & I&Os Vital Signs Date Time Temp Pulse Resp B/P Pulse Ox O2 Delivery O2 Flow Rate FiO2 10/29/16 23:13 96.8 83 18 107/74 99 Room Air Hospital Course Labs (last 24 hrs) Laboratory Tests 10/30/16 05:08: Alanine Aminotransferase (ALT/SGPT) 61H, Albumin 3.2, Alkaline Phosphatase 77, Anion Gap 7, Aspartate Amino Transf (AST/SGOT) 45H, BUN/Creatinine Ratio 7, Basophils # (Auto) 0.0, Basophils (%) (Auto) 0, Blood Urea Nitrogen 5L, Calcium Level 8.6, Carbon Dioxide Level 26, Chloride Level 105, Creatinine 0.70, Eosinophils # (Auto) 0.2, Eosinophils (%) (Auto) 3, Estimat Glomerular Filtration Rate > 60, Glucose Level 83, Hematocrit 35, Hemoglobin 11.5, Lymphocytes # (Auto) 1.9, Lymphocytes (%) (Auto) 29, Mean Corpuscular Hemoglobin 29, Mean Corpuscular Hemoglobin Concent 33, Mean Corpuscular Volume 87, Mean Platelet Volume 9.8, Monocytes # (Auto) 0.4, Monocytes (%) (Auto) 6, Neutrophils # (Auto) 4.1, Neutrophils (%) (Auto) 62, Platelet Count 279, Potassium Level 4.3, Red Blood Count 3.99L, Red Cell Distribution Width 13.1, Sodium Level 138, Total Bilirubin 0.2, Total Protein 6.2L, White Blood Count 6.6 Pending Labs Laboratory Tests 1/30/17 05:08: Alanine Aminotransferase (ALT/SGPT) 61, Albumin 3.2, Alkaline Phosphatase 77, Anion Gap 7, Aspartate Amino Transf (AST/SGOT) 45, BUN/Creatinine Ratio 7, Basophils # (Auto) 0.0, Basophils (%) (Auto) 0, Blood Urea Nitrogen 5, Calcium Level 8.6, Carbon Dioxide Level 26, Chloride Level 105, Creatinine 0.70, Eosinophils # (Auto) 0.2, Eosinophils (%) (Auto) 3, Estimat Glomerular Filtration Rate > 60, Glucose Level 83, Hematocrit 35, Hemoglobin 11.5, Hepatitis A IgM Antibody [Pending], Hepatitis B Core IgM Antibody [Pending], Hepatitis B Surface Antigen [Pending], Hepatitis C Antibody [Pending], Lymphocytes # (Auto) 1.9, Lymphocytes (%) (Auto) 29, Mean Corpuscular Hemoglobin 29, Mean Corpuscular Hemoglobin Concent 33, Mean Corpuscular Volume 87, Mean Platelet Volume 9.8, Monocytes # (Auto) 0.4, Monocytes (%) (Auto) 6, Neutrophils # (Auto) 4.1, Neutrophils (%) (Auto) 62, Platelet Count 279, Potassium Level 4.3, Red Blood Count 3.99, Red Cell Distribution Width 13.1, Sodium Level 138, Total Bilirubin 0.2, Total Protein 6.2, White Blood Count 6.6 Discharge Home Medications: Active Scripts Active Percocet 10-325 mg Tablet (Oxycodone HCl/Acetaminophen) 1 Each Tablet 1 Each PO Q4H PRN Augmentin 500-125 Tablet (Amoxicillin/Potassium Clav) 1 Each Tablet 1 Each PO BID Lactulose 20 Gm/30 Ml Solution 10 Gm PO BID Oxycodone-Acetaminophen 5-325 (Oxycodone HCl/Acetaminophen) 1 Each Tablet 2 Tab PO Q4H PRN Docusate Sodium 100 Mg Capsule 100 Mg PO BID PRN Simethicone 80 Mg Tab.chew 40 Mg PO TID PRN Hydrocodon-Acetaminoph 7.5-325 (Hydrocodone/Acetaminophen) 1 Each Tablet 1-2 Ea PO Q6H PRN Ibuprofen 600 Mg Tablet 600 Mg PO Q6H PRN Reported Prozac (Fluoxetine HCl) 10 Mg Capsule 10 Mg PO DAILY Fioricet 50-300-40 mg Capsule (Butalb/Acetaminophen/Caffeine) 1 Each Capsule 1 Each PO Q6H PRN Instructions to patient/family Please see electonic discharge instructions given to patient. Clinical Quality Measures DVT/VTE Risk/Contraindication: Risk Factor Score Per Nursin RFS Level Per Nursing on Admit: 3=High Copy Copies To 1: LASHONDA PACKER MD, MINDI DO Oct 30, 2016 08:38
[2016-10-30] MEDS ORDERED: FLUoxetine HCL 10 MG (PROzac) CAPSULE/TABLET PO SCH (09:00)
[2016-10-30] MEDS: LACTULOSE SYRUP 10GM/15ML (ENULOSE) 30ML UDC PO SCH (09:36)
[2016-10-30] MEDS: SIMETHICONE 80 MG (MYLICON) CHEW PO PRN (09:46)
[2016-10-30] MEDS: DOCUSATE SODIUM 100 MG (COLACE) CAP PO PRN (09:46)
[2016-10-30] MEDS ORDERED: BUTA1TAB9 PO (11:36)
[2016-10-30] MEDS ORDERED: PHEN37.53 PO (11:36)
== END 2016-10-30 08:33 | disposition home or self-care (01) ==
LOC: EDUNIT# 10:01 → ER 10:03 → INTOOBSV 12:49 → UNDOADMOB 12:49 → 4TH 12:49 → UNDODISOB 10-30 13:25
PROVIDERS: ADMIT Internal Medicine; ATTEND Internal Medicine
DX: K04.7 Periapical abscess without sinus (principal); L03.211 Cellulitis of face; F17.210 Nicotine dependence, cigarettes, uncomplicated; K59.09 Other constipation; R79.89 Other specified abnormal findings of blood chemistry
CPT/HCPCS: 36415; 70487; 80053; 80074; 85025; 96365; G0378

== ENCOUNTER → 2017-03-15 | Outpatient (CLI) | payer MEDICAID ==
[~2017-03-15] MED LIST changes: +AMOX-355 PO; +BUTA1TAB9 PO; +LACT20SO2 PO; +OXYC-202 PO; +PHEN37.53 PO
--- NOTE | 2017-03-15 15:38 | Diagnostic Imaging Report ---
Three views of the lumbar spine. INDICATION: Back pain. FINDINGS: There is a transitional lumbosacral junction with partial lumbarization of S1 level. The vertebral body heights are preserved. Disc heights are also preserved. No significant osteophyte formation seen. The SI joints appear symmetric. The paraspinal soft tissues appear unremarkable. IMPRESSION: Transitional lumbosacral junction. No acute process. Dictated by: Dictated on workstation # [id number]
--- NOTE | 2017-03-15 15:49 | Diagnostic Imaging Report ---
Three views of the thoracic spine. INDICATION: Increasing pain. FINDINGS: There is mild left convexity scoliosis of the thoracic spine. The alignment of the posterior spinal line is satisfactory. The vertebral body heights are preserved. Disc heights are also preserved. Minimal anterior osteophytes are seen in the mid thoracic spine. IMPRESSION: Scoliosis. Minimal anterior osteophytes in the mid thoracic spine. Dictated by: Dictated on workstation # [id number]
--- NOTE | 2017-03-15 17:59 | Diagnostic Imaging Report ---
3 views of the cervical spine. Indication: neck pain. Findings: There is straightening of the cervical lordotic curvature. The alignment of the posterior spinal line is satisfactory. The vertebral body heights are preserved. Disc heights appear preserved. No significant degenerative changes. There is a satisfactory alignment at the lateral masses of C1 and C2. The prevertebral soft tissues appear unremarkable. Impression: Straightening of the cervical lordotic curvature could be positional or related to muscle spasm. Dictated by: Dictated on workstation # [id number]
== END ==
LOC: RAD 14:23
PROVIDERS: ATTEND Family Medicine
DX: M41.84 Other forms of scoliosis, thoracic region (principal); M54.2 Cervicalgia; M54.5 Low back pain; M54.6 Pain in thoracic spine
CPT/HCPCS: 72040; 72072; 72100

== ENCOUNTER → 2017-04-19 | Outpatient (CLI) | payer MEDICAID ==
--- NOTE | 2017-04-19 10:47 | Diagnostic Imaging Report ---
PROCEDURE: MRI lumbar spine. INDICATION: Low back pain for a couple of years. No known injury.. TECHNIQUE: Multiplanar and multisequence noncontrast magnetic resonance imagine was performed of the lumbar spine. CORRELATION STUDY: Radiographs 03/15/2017. FINDINGS: There is transitional anatomy at lumbosacral junction with partial lumbarization of S1 level. There is trace anterolisthesis of L4 on L5. Otherwise there is normal alignment and curvature of the lumbar spine. The lumbar vertebral body heights are maintained and without geographic lesion. Schmorl node deformities, T11 and T12 endplates. The conus terminates at L1 and appears unremarkable. L5-S1: Somewhat small disc space but unremarkable. L4-L5: Mild loss of disc space height and intrasubstance signal intensity. There is near-midline disc protrusion which does result in flattening of the ventral thecal sac. Area of disc protrusion approximately 12 mm transverse x 7 mm AP. This does result in some flattening of the ventral thecal sac but also some corresponding to the foramina right slightly greater than left. No high-degree mass effect upon the exiting nerve roots. L3-L4: Mild ligamentum hypertrophy. Disc space maintained and unremarkable. No significant stenosis. L2-L3: Unremarkable. L1-L2: Unremarkable. The visualized portions of the abdominal aorta and kidneys are negative. No pathologically enlarged central retroperitoneal lymph nodes. IMPRESSION: 1. Transitional anatomy at lumbosacral junction. Careful correlation with numbering is advised if surgical intervention is performed. 2. Given transitional anatomy, there is what appears to be midline disc bulge at L4-L5 level resulting in mild flattening of the ventral thecal sac and mild effacement of the foramina; however, there does not appear to be high-degree central canal stenosis demonstrated. Dictated by: Dictated on workstation # [id number]
== END ==
LOC: RAD 09:05
PROVIDERS: ATTEND Family Medicine
DX: R93.7 Abnormal findings on diagnostic imaging of other parts of musculoskeletal system (principal); M54.5 Low back pain
CPT/HCPCS: 72148

== ENCOUNTER 2018-01-24 13:41 | Emergency (ER) | payer MEDICAID ==
[~2018-01-24] VITALS: Ht 162.6 cm; Wt 80.7 kg
[~2018-01-24 13:41] MED LIST changes: +ACHD5005 PO; +HYDR-34 PO; -HYDR-3812 PO; -HYDR-3816 PO
--- OUTSIDE RECORDS SUMMARY | 2018-01-24 13:49 | XMS REPORT | Continuity of Care Document ---
Author Author [facility] Address Unknown Phone Unavailable Allergies Active Description Code Type Severity Reaction Onset Reported/Identified Relationship to Patient Clinical Status Yes CYCLOBENZAPRINE UNKNOWN GI PROBLEMS - NAUSEA Yes hydromorphone HCl [id number] Drug Allergy Mild ITCHING 07/15/2013 Yes No Known Drug Allergies [id number] Drug Allergy Unknown N/A 10/19/2016 Medications There is no data. Problems Date Dx Coded Attending Type Code Diagnosis Diagnosed By 01/21/2010 MUSA TA PSYD 244.9 HYPOTHYROIDISM 01/21/2010 MUSA TA PSYD 278.00 OBESITY 01/21/2010 MUSA TA PSYD V25.01 Oral Contraceptives 01/21/2010 FAYE CHANCE APRN R 244.9 HYPOTHYROIDISM 01/21/2010 FAYE CHANCE APRN R 278.00 Obesity 01/21/2010 REGINA CHANCE APRNIA R V25.01 Oral Contraceptives 01/21/2010 CHELSEA AMADOR MD 244.9 HYPOTHYROIDISM 01/21/2010 CHELSEA AMADOR MD 278.00 Obesity 01/21/2010 CHELSEA AMADOR MD V25.01 Oral Contraceptives 01/21/2010 244.9 HYPOTHYROIDISM 01/21/2010 278.00 Obesity 01/21/2010 V25.01 Oral Contraceptives 01/21/2010 244.9 HYPOTHYROIDISM 01/21/2010 278.00 Obesity 01/21/2010 V25.01 Oral Contraceptives 01/21/2010 244.9 HYPOTHYROIDISM 01/21/2010 278.00 Obesity 01/21/2010 V25.01 Oral Contraceptives 01/21/2010 FAYE CHANCE APRN R 244.9 HYPOTHYROIDISM 01/21/2010 FAYE CHANCE APRN R 278.00 Obesity 01/21/2010 FAYE CHANCE APRN R V25.01 Oral Contraceptives 01/21/2010 BAKARI WORLEY APRN 244.9 HYPOTHYROIDISM 01/21/2010 BAKARI WORLEY APRN 278.00 Obesity 01/21/2010 BAKARI WORLEY APRN V25.01 Oral Contraceptives 01/21/2010 SMITH DO, MICHAEL K 244.9 HYPOTHYROIDISM 01/21/2010 SMITH DO, MICHAEL K 278.00 Obesity 01/21/2010 SMITH DO, MICHAEL K V25.01 Oral Contraceptives 01/21/2010 SMITH DO, MICHAEL K 244.9 HYPOTHYROIDISM 01/21/2010 SMITH DO, MICHAEL K 278.00 Obesity 01/21/2010 SMITH DO, MICHAEL K V25.01 Oral Contraceptives 01/21/2010 MUSA TA PSYD L 244.9 HYPOTHYROIDISM 01/21/2010 MUSA TA PSYD L 278.00 OBESITY 01/21/2010 MUSA TA PSYD L V25.01 Oral Contraceptives 04/26/2010 MUSA TA PSYD L V25.49 SURVEILLANCE OF OTHER CONTRACEPTIVE METHOD 04/26/2010 FAYE CHANCE APRN V25.49 SURVEILLANCE OF OTHER CONTRACEPTIVE METHOD 04/26/2010 CHELSEA AMADOR MD V25.49 SURVEILLANCE OF OTHER CONTRACEPTIVE METHOD 04/26/2010 V25.49 SURVEILLANCE OF OTHER CONTRACEPTIVE METHOD 04/26/2010 V25.49 SURVEILLANCE OF OTHER CONTRACEPTIVE METHOD 04/26/2010 V25.49 SURVEILLANCE OF OTHER CONTRACEPTIVE METHOD 04/26/2010 FAYE CHANCE APRN V25.49 SURVEILLANCE OF OTHER CONTRACEPTIVE METHOD 04/26/2010 BAKARI WORLEY APRN V25.49 SURVEILLANCE OF OTHER CONTRACEPTIVE METHOD 04/26/2010 SMITH DO, MICHAEL K V25.49 SURVEILLANCE OF OTHER CONTRACEPTIVE METHOD 04/26/2010 SMITH DO MICHAEL K V25.49 SURVEILLANCE OF OTHER CONTRACEPTIVE METHOD 04/26/2010 MUSA TA PSYD L V25.49 SURVEILLANCE OF OTHER CONTRACEPTIVE METHOD 10/03/2010 MUSA TA PSYD L 611.0 INFLAMMATORY DISEASE OF BREAST 10/03/2010 FAYE CHANCE APRN 611.0 INFLAMMATORY DISEASE OF BREAST 10/03/2010 CHELSEA AMADOR MD 611.0 INFLAMMATORY DISEASE OF BREAST 10/03/2010 611.0 INFLAMMATORY DISEASE OF BREAST 10/03/2010 611.0 INFLAMMATORY DISEASE OF BREAST 10/03/2010 611.0 INFLAMMATORY DISEASE OF BREAST 10/03/2010 FAYE CHANCE APRN 611.0 INFLAMMATORY DISEASE OF BREAST 10/03/2010 BAKARI WORLEY APRN 611.0 INFLAMMATORY DISEASE OF BREAST 10/03/2010 MICHAEL SMITH DO K 611.0 INFLAMMATORY DISEASE OF BREAST 10/03/2010 SMITH REBECCA ABRAHAMA K 611.0 INFLAMMATORY DISEASE OF BREAST 10/03/2010 MUSA TA PSYD 611.0 INFLAMMATORY DISEASE OF BREAST 11/03/2010 Ot 521.00 11/03/2010 Ot 525.9 11/03/2010 Ot 787.03 03/01/2011 MUSA TA PSYD L 278.01 OBESITY, MORBID (BMI >40) 03/01/2011 MUSA TA PSYD L 780.79 fatigue 03/01/2011 FAYE CHANCE APRN R 278.01 OBESITY MORBID 03/01/2011 FAYE CHANCE APRN R 780.79 fatigue 03/01/2011 CHELSEA AMADOR MD 278.01 OBESITY MORBID 03/01/2011 CHELSEA AMADOR MD 780.79 fatigue 03/01/2011 278.01 OBESITY MORBID 03/01/2011 780.79 fatigue 03/01/2011 278.01 OBESITY MORBID 03/01/2011 780.79 fatigue 03/01/2011 278.01 OBESITY MORBID 03/01/2011 780.79 fatigue 03/01/2011 FAYE CHANCE APRN R 278.01 OBESITY MORBID 03/01/2011 FAYE CHANCE APRN R 780.79 fatigue 03/01/2011 BAKARI WORLEY APRN 278.01 OBESITY MORBID 03/01/2011 BAKARI WORLEY APRN 780.79 FATIGUE 03/01/2011 SMITH DO MICHAEL K 278.01 OBESITY MORBID 03/01/2011 SMITH DOREBECCAA K 780.79 FATIGUE 03/01/2011 SMITH DO MICHAEL K 278.01 OBESITY MORBID 03/01/2011 SMITH DO MICHAEL K 780.79 FATIGUE 03/01/2011 MUSA TA PSYD L 278.01 OBESITY, MORBID (BMI >40) 03/01/2011 MUSA TA PSYD L 780.79 fatigue 04/25/2011 MUSA TA PSYD 616.10 VAGINITIS VULVOVAGINITIS UNSPECIFIED 04/25/2011 MUSA TA PSYD V25.09 CONTRACEPTIVE COUNSELING 04/25/2011 MUSA TA PSYD V72.31 TUNNELLER EXAM, ROUTINE 04/25/2011 FAYE CHANCE APRN 616.10 VAGINITIS VULVOVAGINITIS UNSPECIFIED 04/25/2011 FAYE CHANCE APRN R V25.09 CONTRACEPTIVE COUNSELING 04/25/2011 FAYE CHANCE APRN V72.31 TUNNELLER EXAM, ROUTINE 04/25/2011 CHELSEA AMADOR MD 616.10 VAGINITIS VULVOVAGINITIS UNSPECIFIED 04/25/2011 CHELSEA AMADOR MD V25.09 CONTRACEPTIVE COUNSELING 04/25/2011 CHELSEA AMADOR MD V72.31 TUNNELLER EXAM, ROUTINE 04/25/2011 616.10 VAGINITIS VULVOVAGINITIS UNSPECIFIED 04/25/2011 V25.09 CONTRACEPTIVE COUNSELING 04/25/2011 V72.31 TUNNELLER EXAM, ROUTINE 04/25/2011 616.10 VAGINITIS VULVOVAGINITIS UNSPECIFIED 04/25/2011 V25.09 CONTRACEPTIVE COUNSELING 04/25/2011 V72.31 TUNNELLER EXAM, ROUTINE 04/25/2011 616.10 VAGINITIS VULVOVAGINITIS UNSPECIFIED 04/25/2011 V25.09 CONTRACEPTIVE COUNSELING 04/25/2011 V72.31 TUNNELLER EXAM, ROUTINE 04/25/2011 FAYE CHANCE APRN 616.10 VAGINITIS VULVOVAGINITIS UNSPECIFIED 04/25/2011 FAYE CHANCE APRN V25.09 CONTRACEPTIVE COUNSELING 04/25/2011 FAYE CHANCE APRN V72.31 TUNNELLER EXAM, ROUTINE 04/25/2011 BAKARI WORLEY APRN 616.10 VAGINITIS VULVOVAGINITIS UNSPECIFIED 04/25/2011 BAKARI WORLEY APRN V25.09 CONTRACEPTIVE COUNSELING 04/25/2011 BAKARI WORLEY APRN V72.31 TUNNELLER EXAM, ROUTINE 04/25/2011 MICHAEL SMITH DO 616.10 VAGINITIS VULVOVAGINITIS UNSPECIFIED 04/25/2011 MICHAEL SMITH DO V25.09 CONTRACEPTIVE COUNSELING 04/25/2011 MICHAEL SMITH DO V72.31 TUNNELLER EXAM, ROUTINE 04/25/2011 MICHAEL SMITH DO 616.10 VAGINITIS VULVOVAGINITIS UNSPECIFIED 04/25/2011 SMITH MICHAEL ABRAHAM V25.09 CONTRACEPTIVE COUNSELING 04/25/2011 LUIS ABRAHAMMICHAEL V72.31 TUNNELLER EXAM, ROUTINE 04/25/2011 MUSA TA PSYD 616.10 VAGINITIS VULVOVAGINITIS UNSPECIFIED 04/25/2011 MUSA TA PSYD V25.09 CONTRACEPTIVE COUNSELING 04/25/2011 MUSA TA PSYD V72.31 TUNNELLER EXAM, ROUTINE 09/01/2011 Ot 729.1 09/01/2011 Ot 729.5 11/08/2011 Ot 616.0 11/08/2011 Ot 623.8 01/07/2012 Ot 041.49 01/07/2012 Ot 564.00 01/07/2012 Ot 590.80 03/22/2012 MUSA TA PSYD 309.81 AN PTSD 03/22/2012 FAYE CHANCE APRN 309.81 AN PTSD 03/22/2012 CHELSEA AMADOR MD 309.81 AN PTSD 03/22/2012 309.81 AN PTSD 03/22/2012 309.81 AN PTSD 03/22/2012 309.81 AN PTSD 03/22/2012 FAYE CHANCE APRN 309.81 AN PTSD 03/22/2012 BAKARI WORLEY APRN 309.81 AN PTSD 03/22/2012 MICHAEL SMITH DO 309.81 AN PTSD 03/22/2012 MICHAEL SMITH DO 309.81 AN PTSD 03/22/2012 MUSA TA PSYD 309.81 AN PTSD 06/19/2012 MUSA TA PSYD 724.5 BACK PAIN, GENERAL 06/19/2012 MUSA TA PSYD 788.1 DYSURIA 06/19/2012 FAYE CHANCE APRN 724.5 BACK PAIN, GENERAL 06/19/2012 FAYE CHANCE APRN 788.1 pain during urination (dysuria) 06/19/2012 CHELSEA AMADOR MD 724.5 BACK PAIN, GENERAL 06/19/2012 CHELSEA AMADOR MD 788.1 pain during urination (dysuria) 06/19/2012 724.5 BACK PAIN, GENERAL 06/19/2012 788.1 pain during urination (dysuria) 06/19/2012 724.5 BACK PAIN, GENERAL 06/19/2012 788.1 pain during urination (dysuria) 06/19/2012 724.5 BACK PAIN, GENERAL 06/19/2012 788.1 pain during urination (dysuria) 06/19/2012 FAYE CHANCE APRN R 724.5 BACK PAIN, GENERAL 06/19/2012 FAYE CHANCE APRN R 788.1 pain during urination (dysuria) 06/19/2012 BAKARI WORLEY APRN 724.5 BACK PAIN, GENERAL 06/19/2012 BAKARI WORLEY APRN 788.1 pain during urination (dysuria) 06/19/2012 SMITH DO, MICHAEL K 724.5 BACK PAIN, GENERAL 06/19/2012 SMITH DO, MICHAEL K 788.1 pain during urination (dysuria) 06/19/2012 SMITH DO, MICHAEL K 724.5 BACK PAIN, GENERAL 06/19/2012 SMITH DO, MICHAEL K 788.1 pain during urination (dysuria) 06/19/2012 MUSA TA PSYD 724.5 BACK PAIN, GENERAL 06/19/2012 MUSA TA PSYD L 788.1 DYSURIA 11/24/2012 Ot 276.51 11/24/2012 Ot 599.0 11/24/2012 Ot 780.4 12/02/2012 FAYE CHANCE APRN R 789.09 flank pain right 12/02/2012 CHELSEA AMADOR MD 789.09 flank pain right 12/02/2012 789.09 flank pain right 12/02/2012 789.09 flank pain right 12/02/2012 789.09 flank pain right 12/02/2012 FAYE CHANCE APRN R 789.09 flank pain right 12/02/2012 BAKARI WORLEY APRN 789.09 FLANK PAIN RIGHT 12/02/2012 SMITH DO, MICHAEL K 789.09 FLANK PAIN RIGHT 12/02/2012 SMITH DO, MICHAEL K 789.09 FLANK PAIN RIGHT 12/03/2012 CHELSEA AMADOR MD 278.00 OBESITY 12/03/2012 CHELSEA AMADOR MD 724.2 BACK PAIN, LOWER 12/03/2012 MARJORIE MCINTYRE, CHELSEA 789.05 ABDOMINAL PAIN PERIUMBILIC 12/03/2012 278.00 OBESITY 12/03/2012 724.2 BACK PAIN, LOWER 12/03/2012 789.05 ABDOMINAL PAIN PERIUMBILIC 12/03/2012 278.00 OBESITY 12/03/2012 724.2 BACK PAIN, LOWER 12/03/2012 789.05 ABDOMINAL PAIN PERIUMBILIC 12/03/2012 278.00 OBESITY 12/03/2012 724.2 BACK PAIN, LOWER 12/03/2012 789.05 ABDOMINAL PAIN PERIUMBILIC 12/03/2012 FAYE CHANCE APRN R 278.00 OBESITY 12/03/2012 FAYE CHANCE APRN R 724.2 BACK PAIN, LOWER 12/03/2012 FAYE CHANCE APRN R 789.05 ABDOMINAL PAIN PERIUMBILIC 12/03/2012 BAKARI WORLEY APRN 278.00 OBESITY 12/03/2012 BAKARI WORLEY APRN 724.2 BACK PAIN, LOWER 12/03/2012 BAKARI WORLEY APRN 789.05 ABDOMINAL PAIN PERIUMBILIC 12/03/2012 SMITH DO, MICHAEL K 278.00 OBESITY 12/03/2012 SMITH DO, MICHAEL K 724.2 BACK PAIN, LOWER 12/03/2012 SMITH DO, MICHAEL K 789.05 ABDOMINAL PAIN PERIUMBILIC 12/03/2012 SMITH DO, MICHAEL K 278.00 OBESITY 12/03/2012 SMITH DO, MICHAEL K 724.2 BACK PAIN, LOWER 12/03/2012 SMITH DO, MICHAEL K 789.05 ABDOMINAL PAIN PERIUMBILIC 03/03/2013 626.4 IRREGULAR MENSTRUAL CYCLE 03/03/2013 783.5 POLYDIPSIA 03/03/2013 788.41 URINARY FREQUENCY 03/03/2013 626.4 IRREGULAR MENSTRUAL CYCLE 03/03/2013 783.5 POLYDIPSIA 03/03/2013 788.41 URINARY FREQUENCY 03/03/2013 626.4 IRREGULAR MENSTRUAL CYCLE 03/03/2013 783.5 POLYDIPSIA 03/03/2013 788.41 URINARY FREQUENCY 03/03/2013 FAYE CHANCE APRN R 626.4 IRREGULAR MENSTRUAL CYCLE 03/03/2013 FAYE CHANCE APRN R 783.5 POLYDIPSIA 03/03/2013 FAYE CHANCE APRN R 788.41 URINARY FREQUENCY 03/03/2013 BAKARI WORLEY APRN T 626.4 IRREGULAR MENSTRUAL CYCLE 03/03/2013 BAKARI WORLEY APRN T 783.5 POLYDIPSIA 03/03/2013 BAKARI WORLEY APRN T 788.41 URINARY FREQUENCY 03/03/2013 SMITH DO, MICHAEL K 626.4 IRREGULAR MENSTRUAL CYCLE 03/03/2013 SMITH DO, MICHAEL K 783.5 POLYDIPSIA 03/03/2013 SMITH DO, MICHAEL K 788.41 URINARY FREQUENCY 03/03/2013 SMITH DO, MICHAEL K 626.4 IRREGULAR MENSTRUAL CYCLE 03/03/2013 SMITH DO, MICHAEL K 783.5 POLYDIPSIA 03/03/2013 SMITH DO, MICHAEL K 788.41 URINARY FREQUENCY 03/24/2013 569.42 ANAL OR RECTAL PAIN 03/24/2013 625.9 PELVIC PAIN 03/24/2013 569.42 ANAL OR RECTAL PAIN 03/24/2013 625.9 PELVIC PAIN 03/24/2013 REGINA CHANCE APRNIA R 569.42 ANAL OR RECTAL PAIN 03/24/2013 REGNIA CHANCE APRNIA R 625.9 PELVIC PAIN 03/24/2013 BAKARI WORLEY APRN 569.42 ANAL OR RECTAL PAIN 03/24/2013 BAKARI WORLEY APRN T 625.9 PELVIC PAIN 03/24/2013 SMITH DO, MICHAEL K 569.42 ANAL OR RECTAL PAIN 03/24/2013 SMITH DO, MICHAEL K 625.9 PELVIC PAIN 03/24/2013 SMITH DO, MICHAEL K 569.42 ANAL OR RECTAL PAIN 03/24/2013 SMITH DO, MICHAEL K 625.9 PELVIC PAIN 05/16/2013 786.2 COUGH 05/16/2013 REGINA CHANCE APRNIA R 786.2 COUGH 05/16/2013 BAKARI WORLEY APRN 786.2 COUGH 05/16/2013 SMITH DO, MICHAEL K 786.2 COUGH 05/16/2013 SMITH DO, MICHAEL K 786.2 COUGH 07/10/2013 FAYE CHANCE APRN R 599.0 URINARY TRACT INFECTION 07/10/2013 BAKARI WORLEY APRN 599.0 URINARY TRACT INFECTION 07/10/2013 SMITH DO, MICHAEL K 599.0 URINARY TRACT INFECTION 07/10/2013 SMITH DO, MICHAEL K 599.0 URINARY TRACT INFECTION 08/14/2013 MICHAEL SMITH DO 782.1 RASH AND OTHER NONSPECIFIC SKIN ERUPTION 08/14/2013 MICHAEL SMITH DO 782.1 RASH AND OTHER NONSPECIFIC SKIN ERUPTION 08/25/2013 MICHAEL SMITH DO V72.42 TEST POSITIVE RESULT 08/30/2013 JONATHAN WEST DO Ot 623.8 08/30/2013 JONATHAN WEST DO Ot 640.03 08/30/2013 JONATHAN WEST DO Ot 696.3 10/23/2013 PATRICIO VIEIRA DO Ot 338.29 OTHER CHRONIC PAIN 10/23/2013 DARIEL ABRAHAM PATRICIO S Ot 493.90 ASTHMA, UNSPECIFIED 10/23/2013 DARIEL ABRAHAM PATRICIO S Ot 642.33 TRANS HYPERTEN-ANTEPART 10/23/2013 DARIEL ABRAHAM PATRICIO Krzysztof Ot 648.93 OTH CURR COND-ANTEPARTUM 10/23/2013 DARIEL ABRAHAM PATRICIO Blankenship Ot 784.0 HEADACHE 10/23/2013 DARIEL ABRAHAM PATRICIO Blankenship Ot V12.54 PERSONAL HX OF TIA, CEREBRAL INFARCTION 12/29/2013 DARIEL ABRAHAM PATRICIO S Ot 525.9 12/29/2013 FENECH PATRICIO S Ot 648.93 12/29/2013 MELODYECH PATRICIO S Ot 784.0 12/29/2013 FENECH DO PATRICIO S Ot 787.02 01/26/2014 FENECH PATRICIO S Ot 599.0 01/26/2014 FENECH PATRICIO S Ot 646.63 02/17/2014 FENECH PATRICIO S Ot V22.1 03/31/2014 FENECH DO PATRICIO S Ot 644.03 03/31/2014 FENECH DO PATRICIO S Ot 654.23 04/24/2014 FENECH DO PATRICIO S Ot 285.1 04/24/2014 FENECH DO PATRICIO S Ot 648.22 04/24/2014 FENECH DO PATRICIO S Ot 654.21 04/24/2014 FENECH DO PATRICIO S Ot V27.0 11/16/2015 DIPESH ALEJANDRO Ot N83.20 UNSPECIFIED OVARIAN CYSTS 11/16/2015 DIPESH ALEJANDRO Ot Z32.02 ENCOUNTER FOR TEST, RESULT NEG 01/10/2016 DIPESH ALEJANDRO Ot N39.0 URINARY TRACT INFECTION, SITE NOT SPECIF 01/10/2016 DIPESH ALEJANDRO Ot O20.0 THREATENED 01/10/2016 DIPESH ALEJANDRO Ot Z3A.01 LESS THAN 8 WEEKS GESTATION OF 01/10/2016 DIPESH ALEJANDRO Ot Z87.891 PERSONAL HISTORY OF NICOTINE DEPENDENCE 03/07/2016 FENECH DO, PATRICIO S Ot N13.1 HYDRONEPHROSIS W URETERAL STRICTURE, NEC 03/07/2016 FENECH DO, PATRICIO S Ot 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, SECOND T 03/07/2016 FENECH DO, PATRICIO S Ot O99.89 OTH DISEASES AND CONDITIONS COMPL PREG/C 03/07/2016 FENECH DO, PATRICIO S Ot R09.89 OTH SYMPTOMS AND SIGNS INVOLVING THE CIR 03/08/2016 FENECH DO, PATRICIO S Ot O34.21 MATERNAL CARE FOR SCAR FROM PREVIOUS RAKESH 03/08/2016 FENECH DO, PATRICIO S Ot 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, SECOND T 03/08/2016 FENECH DO, PATRICIO S Ot R09.89 OTH SYMPTOMS AND SIGNS INVOLVING THE CIR 03/09/2016 FENECH DO, PATRICIO S Ot N13.1 HYDRONEPHROSIS W URETERAL STRICTURE, NEC 03/09/2016 FENECH DO, PATRICIO S Ot 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, SECOND T 03/09/2016 FENECH DO, PATRICIO S Ot O99.89 OTH DISEASES AND CONDITIONS COMPL PREG/C 03/09/2016 FENECH DO, PATRICIO S Ot R09.89 OTH SYMPTOMS AND SIGNS INVOLVING THE CIR 03/20/2016 FENECH DO, PATRICIO S Ot N13.1 HYDRONEPHROSIS W URETERAL STRICTURE, NEC 03/20/2016 FENECH DO, PATRICIO S Ot 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, SECOND T 03/20/2016 FENECH DO, PATRICIO S Ot O99.89 OTH DISEASES AND CONDITIONS COMPL PREG/C 03/20/2016 FENECH DO, PATRICIO S Ot R09.89 OTH SYMPTOMS AND SIGNS INVOLVING THE CIR 03/23/2016 FENECH DO, PATRICIO S Ot O34.21 MATERNAL CARE FOR SCAR FROM PREVIOUS RAKESH 03/23/2016 FENECH DO, PATRICIO S Ot 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, SECOND T 03/23/2016 FENECH DO, PATRICIO S Ot R09.89 OTH SYMPTOMS AND SIGNS INVOLVING THE CIR 07/05/2016 FENECH DO, PATRICIO S Ot N13.1 HYDRONEPHROSIS W URETERAL STRICTURE, NEC 07/05/2016 FENECH DO, PATRICIO S Ot 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, SECOND T 07/05/2016 FENECH DO, PATRICIO S Ot O99.89 OTH DISEASES AND CONDITIONS COMPL PREG/C 07/05/2016 FENECH DO, PATRICIO S Ot R09.89 OTH SYMPTOMS AND SIGNS INVOLVING THE CIR 07/05/2016 FENECH DO, PATRICIO S Ot O34.21 MATERNAL CARE FOR SCAR FROM PREVIOUS RAKESH 07/05/2016 FENECH DO, PATRICIO S Ot 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, SECOND T 07/05/2016 FENECH DO, PATRICIO S Ot R09.89 OTH SYMPTOMS AND SIGNS INVOLVING THE CIR 07/05/2016 MILADIS MCINTYRE, NESSA N Ot M54.5 LOW BACK PAIN 07/05/2016 MILADIS MCINTYRE, NESSA N Ot O99.89 OTH DISEASES AND CONDITIONS COMPL PREG/C 07/05/2016 MILADIS MCINTYRE, NESSA N Ot Z3A.32 32 WEEKS GESTATION OF 07/10/2016 MILADIS MCINTYRE, NESSA N Ot M54.5 LOW BACK PAIN 07/10/2016 MILADIS MCINTYRE, NESSA N Ot O99.89 OTH DISEASES AND CONDITIONS COMPL PREG/C 07/10/2016 MILADIS MCINTYRE, NESSA N Ot Z3A.32 32 WEEKS GESTATION OF 07/10/2016 FENECH DO, PATRICIO S Ot N13.1 HYDRONEPHROSIS W URETERAL STRICTURE, NEC 07/10/2016 FENECH DO, PATRICIO S Ot 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, SECOND T 07/10/2016 FENECH DO, PATRICIO S Ot O99.89 OTH DISEASES AND CONDITIONS COMPL PREG/C 07/10/2016 FENECH DO, PATRICIO S Ot R09.89 OTH SYMPTOMS AND SIGNS INVOLVING THE CIR 07/10/2016 FENECH DO, PATRICIO S Ot O34.21 MATERNAL CARE FOR SCAR FROM PREVIOUS RAKESH 07/10/2016 FENECH DO, PATRICIO S Ot 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, SECOND T 07/10/2016 FENECH DO, PATRICIO S Ot R09.89 OTH SYMPTOMS AND SIGNS INVOLVING THE CIR 07/12/2016 MILADIS MCINTYRE, NESSA Villarreal Ot M54.5 LOW BACK PAIN 07/12/2016 NESSA REDDING MD Ot O99.89 OTH DISEASES AND CONDITIONS COMPL PREG/C 07/12/2016 NESSA REDDING MD Ot Z3A.32 32 WEEKS GESTATION OF 07/24/2016 DYLON REYNOSO MD, Ot O47.9 FALSE LABOR, UNSPECIFIED 07/24/2016 DYLON REYNOSO MD, Ot Z3A.35 35 WEEKS GESTATION OF 07/27/2016 DYLON REYNOSO MD, Ot O47.9 FALSE LABOR, UNSPECIFIED 07/27/2016 DYLON REYNOSO MD, Ot Z3A.00 WEEKS OF GESTATION OF NOT SPEC 07/27/2016 DYLON REYNOSO MD, Ot O47.9 FALSE LABOR, UNSPECIFIED 07/27/2016 DYLON REYNOSO MD, Ot Z3A.35 35 WEEKS GESTATION OF 08/05/2016 PATRICIO VIEIRA DO Ot O26.893 OTH RELATED CONDITIONS, THIRD 08/05/2016 PATRICIO VIEIRA DO Ot O34.211 MATERN CARE FOR LOW TRANSVERSE SCAR FROM 08/05/2016 PATRICIO VIEIRA DO Ot R10.2 PELVIC AND PERINEAL PAIN 08/05/2016 PATRICIO VIEIRA DO Ot Z3A.37 37 WEEKS GESTATION OF 10/18/2016 PATRICIO VIEIRA DO Ot N13.1 HYDRONEPHROSIS W URETERAL STRICTURE, NEC 10/18/2016 PATRICIO VIEIRA DO Ot 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, SECOND T 10/18/2016 PATRICIO VIEIRA DO S Ot O99.89 OTH DISEASES AND CONDITIONS COMPL PREG/C 10/18/2016 PATRICIO VIEIRA DO S Ot R09.89 OTH SYMPTOMS AND SIGNS INVOLVING THE CIR 10/18/2016 PATRICIO VIEIRA DO S Ot O34.21 MATERNAL CARE FOR SCAR FROM PREVIOUS RAKESH 10/18/2016 PATRICIO VIEIRA DO S Ot 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, SECOND T 10/18/2016 PATRICIO VIEIRA DO S Ot R09.89 OTH SYMPTOMS AND SIGNS INVOLVING THE CIR 10/19/2016 PATRICIO VIEIRA DO S Ot N80.9 ENDOMETRIOSIS, UNSPECIFIED 10/19/2016 DARIEL ABRAHAM PATRICIO Krzysztof Ot Z01.812 ENCOUNTER FOR PREPROCEDURAL LABORATORY E 10/20/2016 DARIEL ABRAHAMPATRICIO Ot N80.9 ENDOMETRIOSIS, UNSPECIFIED 10/20/2016 DARIEL ABRAHAM PATRICIO Krzysztof Mcfadden Z01.812 ENCOUNTER FOR PREPROCEDURAL LABORATORY E 10/26/2016 DARIEL PATRIICO ABRAHAM Ot N13.1 HYDRONEPHROSIS W URETERAL STRICTURE, NEC 10/26/2016 MELODYPATRICIO CARLIN DO Ot 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, SECOND T 10/26/2016 DARIEL ABRAHAMPATRICIO Ot O99.89 OTH DISEASES AND CONDITIONS COMPL PREG/C 10/26/2016 PATRICIO VIEIRA DO Ot R09.89 OTH SYMPTOMS AND SIGNS INVOLVING THE CIR 10/26/2016 DARIEL PATRICIO ABRAHAM Ot O34.21 MATERNAL CARE FOR SCAR FROM PREVIOUS RAKESH 10/26/2016 PATRICIO VIEIRA DO Ot 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, SECOND T 10/26/2016 PATRICIO VIEIRA DO Ot R09.89 OTH SYMPTOMS AND SIGNS INVOLVING THE CIR 10/27/2016 DARIEL PATRICIO ABRAHAM Ot 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 ADHESIONS (POST 10/27/2016 MELODYPATRICIO CARLIN DO Ot N94.5 SECONDARY DYSMENORRHEA 10/27/2016 PATRICIO VIEIRA DO Ot R10.2 PELVIC AND PERINEAL PAIN 10/27/2016 PATRICIO VIEIRA DO Ot R33.9 RETENTION OF URINE, UNSPECIFIED 10/27/2016 MELODYPATRICIO CARLIN DO Ot Z87.42 PERSONAL HISTORY OF OTH DISEASES OF THE 10/30/2016 ANGEL SHERWOOD DO Ot F17.210 NICOTINE DEPENDENCE, CIGARETTES, UNCOMPL 10/30/2016 ANGEL SHERWOOD DO Ot K04.7 PERIAPICAL ABSCESS WITHOUT SINUS 10/30/2016 ANGEL SHERWOOD DO Ot K59.09 OTHER CONSTIPATION 10/30/2016 ANGEL SHERWOOD DO Ot L03.211 CELLULITIS OF FACE 10/30/2016 ANGEL SHERWOOD DO Ot R79.89 OTHER SPECIFIED ABNORMAL FINDINGS OF BLO 10/30/2016 ANGEL SHERWOOD DO Ot F17.210 NICOTINE DEPENDENCE, CIGARETTES, UNCOMPL 10/30/2016 ANGEL SHERWOOD DO Ot K04.7 PERIAPICAL ABSCESS WITHOUT SINUS 10/30/2016 ANGEL SHERWOOD DO Ot K59.09 OTHER CONSTIPATION 10/30/2016 ANGEL SHERWOOD DO Ot L03.211 CELLULITIS OF FACE 10/30/2016 ANGEL SHERWOOD DO Ot R79.89 OTHER SPECIFIED ABNORMAL FINDINGS OF BLO 10/30/2016 DARIEL PATRICIO ABRAHAM Ot 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 ADHESIONS (POST 10/30/2016 DARIEL PATRICIO ABRAHAM Ot N94.5 SECONDARY DYSMENORRHEA 10/30/2016 DARIEL PATRICIO ABRAHAM Ot R10.2 PELVIC AND PERINEAL PAIN 10/30/2016 DARIEL ABRAHAMPATRICIO Ot R33.9 RETENTION OF URINE, UNSPECIFIED 10/30/2016 DARIEL PATRICIO ABRAHAM Ot Z87.42 PERSONAL HISTORY OF OTH DISEASES OF THE 11/01/2016 DARIEL ABRAHAMPATRICIO Ot 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 ADHESIONS (POST 11/01/2016 DARIEL PATRICIO ABRAHAM Ot N94.5 SECONDARY DYSMENORRHEA 11/01/2016 DARIEL PATRICIO ABRAHAM Ot R10.2 PELVIC AND PERINEAL PAIN 11/01/2016 DARIEL ABRAHAMPATRICIO Ot R33.9 RETENTION OF URINE, UNSPECIFIED 11/01/2016 DARIEL PATRICIO ABRAHAM Ot Z87.42 PERSONAL HISTORY OF OTH DISEASES OF THE 11/03/2016 DARIEL PATRICIO ABRAHAM Ot N13.1 HYDRONEPHROSIS W URETERAL STRICTURE, NEC 11/03/2016 PATRICIO VIEIRA DO Ot 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, SECOND T 11/03/2016 PATRICIO VIEIRA DO Ot O99.89 OTH DISEASES AND CONDITIONS COMPL PREG/C 11/03/2016 PATRICIO VIEIRA DO Ot R09.89 OTH SYMPTOMS AND SIGNS INVOLVING THE CIR 11/03/2016 PATRICIO VIEIRA DO Ot O34.21 MATERNAL CARE FOR SCAR FROM PREVIOUS RAKESH 11/03/2016 PATRICIO VIEIRA DO Ot 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, SECOND T 11/03/2016 PATRICIO VIEIRA DO Ot R09.89 OTH SYMPTOMS AND SIGNS INVOLVING THE CIR 11/07/2016 ANGEL SHERWOOD DO Ot F17.210 NICOTINE DEPENDENCE, CIGARETTES, UNCOMPL 11/07/2016 ANGEL SHERWOOD DO Ot K04.7 PERIAPICAL ABSCESS WITHOUT SINUS 11/07/2016 SHERWOOD DO, ANGEL Ot K59.09 OTHER CONSTIPATION 11/07/2016 PRESLEY ABRAHAM ANGEL Ot L03.211 CELLULITIS OF FACE 11/07/2016 PRESLEY ABRAHAM ANGEL Ot R79.89 OTHER SPECIFIED ABNORMAL FINDINGS OF BLO 03/15/2017 PATRICIO VIEIRA DO S Ot N13.1 HYDRONEPHROSIS W URETERAL STRICTURE, NEC 03/15/2017 FENECH DO, PATRICIO S Ot 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, SECOND T 03/15/2017 MELODYECH DO, PATRICIO S Ot O99.89 OTH DISEASES AND CONDITIONS COMPL PREG/C 03/15/2017 FENECH DO, PATRICIO S Ot R09.89 OTH SYMPTOMS AND SIGNS INVOLVING THE CIR 03/15/2017 FENECH DO, PATRICIO S Ot O34.21 MATERNAL CARE FOR SCAR FROM PREVIOUS RAKESH 03/15/2017 DARIEL DO, PATRICIO S Ot 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, SECOND T 03/15/2017 MELODYECH DO, PATRICIO S Ot R09.89 OTH SYMPTOMS AND SIGNS INVOLVING THE CIR 03/17/2017 RHYS MCINTYRE, LASHONDA L Ot 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, THORACIC REGIO 03/17/2017 RHYS MCINTYRE, LASHONDA L Ot M54.2 CERVICALGIA 03/17/2017 RHYS MCINTYRE, LASHONDA L Ot M54.5 LOW BACK PAIN 03/17/2017 RHYS MCINTYRE, LASHONDA L Ot M54.6 PAIN IN THORACIC SPINE 03/30/2017 RHYS MCINTYRE, LASHONDA L Ot 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, THORACIC REGIO 03/30/2017 ALTAF JOINER MDHEL L Ot M54.2 CERVICALGIA 03/30/2017 RHYS MCINTYRE LASHONDA L Ot M54.5 LOW BACK PAIN 03/30/2017 ALTAF JOINER MDHEL L Ot M54.6 PAIN IN THORACIC SPINE 04/19/2017 MELODYECH DO, PATRICIO S Ot N13.1 HYDRONEPHROSIS W URETERAL STRICTURE, NEC 04/19/2017 MELODYECH DO, PATRICIO S Ot 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, SECOND T 04/19/2017 MELODYECH DO, PATRICIO S Ot O99.89 OTH DISEASES AND CONDITIONS COMPL PREG/C 04/19/2017 FENECH DO, PATRICIO S Ot R09.89 OTH SYMPTOMS AND SIGNS INVOLVING THE CIR 04/19/2017 FENECH DO, PATRICIO S Ot O34.21 MATERNAL CARE FOR SCAR FROM PREVIOUS RAKESH 04/19/2017 PATRICIO VIEIRA DO Ot 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, SECOND T 04/19/2017 PATRICIO VIEIRA DO Ot R09.89 OT SYMPTOMS AND SIGNS INVOLVING THE CIR 04/19/2017 RHYS MCINTYRE, LASHONDA L Ot 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, THORACIC REGIO 04/19/2017 RHYS MCINTYRE, LASHONDA L Ot M54.2 CERVICALGIA 04/19/2017 RHYS MCINTYRE, LASHONDA L Ot M54.5 LOW BACK PAIN 04/19/2017 RHYS MCINTYRE, LASHONDA L Ot M54.6 PAIN IN THORACIC SPINE 04/25/2017 LASHONDA JOINER MD L Ot M54.5 LOW BACK PAIN 04/25/2017 LASHONDA JOINER MD L Ot R93.7 ABNORMAL FINDINGS ON DIAGNOSTIC IMAGING 05/03/2017 LASHONDA JOINER MD L Ot M54.5 LOW BACK PAIN 05/03/2017 LASHONDA JOINER MD L Ot R93.7 ABNORMAL FINDINGS ON DIAGNOSTIC IMAGING 10/09/2017 LASHONDA JOINER W 780.79 OTHER MALAISE AND FATIGUE 10/09/2017 LASHONDA JOINER W 787.02 NAUSEA ALONE 10/09/2017 LASHONDA JOINER W P96.89 OTHER SPECIFIED CONDITIONS ORIGINATING IN THE PERIOD 10/09/2017 LASHONDA JOINER W R11.0 NAUSEA 10/09/2017 LASOHNDA JOINER W 780.79 OTHER MALAISE AND FATIGUE 10/09/2017 LASHONDA JOINER W 787.02 NAUSEA ALONE 10/09/2017 LASHONDA JOINER W P96.89 OTHER SPECIFIED CONDITIONS ORIGINATING IN THE PERIOD 10/09/2017 LASHONDA JOINER W R11.0 NAUSEA 10/09/2017 LASHONDA JOINER W 780.79 OTHER MALAISE AND FATIGUE 10/09/2017 LASHONDA JOINER W 787.02 NAUSEA ALONE 10/09/2017 LASHONDA JOINER W P96.89 OTHER SPECIFIED CONDITIONS ORIGINATING IN THE PERIOD 10/09/2017 LASHONDA JOINER W R11.0 NAUSEA 10/09/2017 LASHONDA JOINER W R53.83 OTHER FATIGUE 10/10/2017 W 780.79 OTHER MALAISE AND FATIGUE 10/10/2017 W R53.83 OTHER FATIGUE 10/10/2017 W 780.79 OTHER MALAISE AND FATIGUE 10/10/2017 W R53.83 OTHER FATIGUE 10/10/2017 W 780.79 OTHER MALAISE AND FATIGUE 10/10/2017 W R53.83 OTHER FATIGUE Procedures Code [place] [address] INDIV PSYTX 45/50 MIN 09/04/2012 01933 UA W/ CULTURE IF INDICATED 12/02/2012 03402 UA W/MICROSCOPY 12/02/2012 38404 UA LONG DIP 12/03/2012 19047 XRAY ABDOMEN 2 VIEWS 12/04/2012 53368 ROUTINE VENIPUNCTURE 03/03/2013 52036 UA W/ CULTURE IF INDICATED 03/03/2013 60554 URINE TEST (IN- HOUSE) 03/03/2013 42886 TSH 03/03/2013 25605 A1C (IN-HOUSE) 03/05/2013 43645 UA W/ CULTURE IF INDICATED 05/16/2013 44320 UA W/ CULTURE IF INDICATED 07/10/2013 78954 CULTURE URINE 07/10/2013 OBSTETRIC JOSE A ALVARADOA 08/04/2013 44007 URINE TEST (IN- HOUSE) 08/25/2013 10P14M0 EXTRACTION OF POC, LOW CERVICAL, OPEN AP 08/03/2016 Results Test Result Range Complete urinalysis with reflex to culture - 07/05/16 19:40 Urine color determination YELLOW NRG Urine clarity determination SLIGHTLY CLOUDY NRG Urine pH measurement by test strip 7 5-9 Specific gravity of urine by test strip 1.015 1.016- 1.022 Urine protein assay by test strip, semi-quantitative NEGATIVE NEGATIVE Urine glucose detection by automated test strip NEGATIVE NEGATIVE Erythrocytes detection in urine sediment by light microscopy NEGATIVE NEGATIVE Urine ketones detection by automated test strip NEGATIVE NEGATIVE Urine nitrite detection by test strip NEGATIVE NEGATIVE Urine total bilirubin detection by test strip NEGATIVE NEGATIVE Urine urobilinogen measurement by automated test strip (mass/volume) 4 mg/dL NORMAL Urine leukocyte esterase detection by dipstick 2+ NEGATIVE Automated urine sediment erythrocyte count by microscopy (number/high power field) NONE NRG Automated urine sediment leukocyte count by microscopy (number/high power field ) [HPF] NRG Bacteria detection in urine sediment by light microscopy TRACE NRG Squamous epithelial cells detection in urine sediment by light microscopy 10-25 NRG Crystals detection in urine sediment by light microscopy NONE NRG Casts detection in urine sediment by light microscopy NONE NRG Mucus detection in urine sediment by light microscopy NEGATIVE NRG Complete urinalysis with reflex to culture YES NRG Bacterial urine culture - 07/05/16 19:40 Bacterial urine culture [id number] NRG COLONY COUNT >100,000/ML NRG FTX;REPORTABLE PLUS MIXED GRAM POSITIVES NRG FREE TEXT ENTRY 2 <10,000/ML NRG Complete urinalysis with reflex to culture - 07/24/16 16:00 Urine color determination YELLOW NRG Urine clarity determination SLIGHTLY CLOUDY NRG Urine pH measurement by test strip 6 5-9 Specific gravity of urine by test strip 1.025 1.016- 1.022 Urine protein assay by test strip, semi-quantitative 2+ NEGATIVE Urine glucose detection by automated test strip NEGATIVE NEGATIVE Erythrocytes detection in urine sediment by light microscopy NEGATIVE NEGATIVE Urine ketones detection by automated test strip 4+ NEGATIVE Urine nitrite detection by test strip NEGATIVE NEGATIVE Urine total bilirubin detection by test strip NEGATIVE NEGATIVE Urine urobilinogen measurement by automated test strip (mass/volume) 4 mg/dL NORMAL Urine leukocyte esterase detection by dipstick 2+ NEGATIVE Automated urine sediment erythrocyte count by microscopy (number/high power field) NONE NRG Automated urine sediment leukocyte count by microscopy (number/high power field ) [HPF] NRG Bacteria detection in urine sediment by light microscopy LARGE NRG Squamous epithelial cells detection in urine sediment by light microscopy 25-50 NRG Crystals detection in urine sediment by light microscopy NONE NRG Casts detection in urine sediment by light microscopy NONE NRG Mucus detection in urine sediment by light microscopy LARGE NRG Complete urinalysis with reflex to culture YES NRG Urine drug screening test - 07/24/16 16:00 Urine phencyclidine detection by screening method NEGATIVE NEGATIVE Urine benzodiazepines detection by screening method NEGATIVE NEGATIVE Urine cocaine detection NEGATIVE NEGATIVE Urine amphetamines detection by screening method NEGATIVE NEGATIVE Urine methamphetamine detection by screening method NEGATIVE NEGATIVE Urine cannabinoids detection by screening method NEGATIVE NEGATIVE Urine opiates detection by screening method NEGATIVE NEGATIVE Urine barbiturates detection POSITIVE NEGATIVE Screening urine tricyclic antidepressants detection NEGATIVE NEGATIVE Urine methadone detection by screening method NEGATIVE NEGATIVE Urine oxycodone detection NEGATIVE NEGATIVE Urine propoxyphene detection NEGATIVE NEGATIVE Urine buprenophrine screen NEGATIVE NEGATIVE Bacterial urine culture - 07/24/16 16:00 URINE CULTURE RESULTS 10,000/ML - 100,000/ML NRG Complete blood count (CBC) with automated white blood cell (WBC) differential - 11/03/16 15:55 Blood leukocytes automated count (number/volume) 11.7 10*3/uL 4.3-11.0 Blood erythrocytes automated count (number/volume) 3.87 10*6/uL 4.35-5.85 Venous blood hemoglobin measurement (mass/volume) 11.2 g/dL 11.5-16.0 Blood hematocrit (volume fraction) 33 % 35-52 Automated erythrocyte mean corpuscular volume 85 [foz_us] 80-99 Automated erythrocyte mean corpuscular hemoglobin (mass per erythrocyte) 29 pg 25-34 Automated erythrocyte mean corpuscular hemoglobin concentration measurement ( mass/volume) 34 g/dL 32-36 Automated erythrocyte distribution width ratio 12.3 % 10.0-14.5 Automated blood platelet count (count/volume) 314 10*3/uL 130-400 Automated blood platelet mean volume measurement 9.9 [foz_us] 7.4-10.4 Automated blood neutrophils/100 leukocytes 74 % 42-75 Automated blood lymphocytes/100 leukocytes 18 % 12-44 Blood monocytes/100 leukocytes 7 % 0-12 Automated blood eosinophils/100 leukocytes 1 % 0-10 Automated blood basophils/100 leukocytes 0 % 0-10 Blood neutrophils automated count (number/volume) 8.7 10*3 1.8-7.8 Blood lymphocytes automated count (number/volume) 2.2 10*3 1.0-4.0 Blood monocytes automated count (number/volume) 0.8 10*3 0.0-1.0 Automated eosinophil count 0.1 10*3/uL 0.0-0.3 Automated blood basophil count (count/volume) 0.0 10*3/uL 0.0-0.1 Blood type T Indirect antibody screen panel - 08/03/16 15:55 ABO+Rh group AN [facility] Transfusion band number [id number] [facility] Blood group antibody screen NEGATIVE [facility] Complete blood count (CBC) with automated white blood cell (WBC) differential - 08/04/16 05:45 Blood leukocytes automated count (number/volume) 12.6 10*3/uL 4.3-11.0 Blood erythrocytes automated count (number/volume) 3.55 10*6/uL 4.35-5.85 Venous blood hemoglobin measurement (mass/volume) 10.2 g/dL 11.5-16.0 Blood hematocrit (volume fraction) 30 % 35-52 Automated erythrocyte mean corpuscular volume 85 [foz_us] 80-99 Automated erythrocyte mean corpuscular hemoglobin (mass per erythrocyte) 29 pg 25-34 Automated erythrocyte mean corpuscular hemoglobin concentration measurement ( mass/volume) 34 g/dL 32-36 Automated erythrocyte distribution width ratio 12.4 % 10.0-14.5 Automated blood platelet count (count/volume) 276 10*3/uL 130-400 Automated blood platelet mean volume measurement 9.9 [foz_us] 7.4-10.4 Automated blood neutrophils/100 leukocytes 76 % 42-75 Automated blood lymphocytes/100 leukocytes 17 % 12-44 Blood monocytes/100 leukocytes 7 % 0-12 Automated blood eosinophils/100 leukocytes 1 % 0-10 Automated blood basophils/100 leukocytes 0 % 0-10 Blood neutrophils automated count (number/volume) 9.5 10*3 1.8-7.8 Blood lymphocytes automated count (number/volume) 2.1 10*3 1.0-4.0 Blood monocytes automated count (number/volume) 0.9 10*3 0.0-1.0 Automated eosinophil count 0.1 10*3/uL 0.0-0.3 Automated blood basophil count (count/volume) 0.0 10*3/uL 0.0-0.1 RH IMMUNE GLOBULIN [facility] - 08/04/16 05:45 RH IMMUNE GLOBULIN [facility] PRSMD TRFSD 08/04/16 1717 [facility] cell screen - 08/04/16 05:45 [address]CREEN [address] NUMBER [id number] [facility] Transfusion band number [id number] [facility] [id number] 1 300ug [facility] Erythrocytes./1000 erythrocytes 08/11/16 [facility] cell screen 08/11/18 [facility] cell screen NEGATIVE NEGATIVE Lot number [id number] [facility] Complete blood count (CBC) with automated white blood cell (WBC) differential - 10/19/16 10:35 Blood leukocytes automated count (number/volume) 6.6 10*3/uL 4.3-11.0 Blood erythrocytes automated count (number/volume) 4.68 10*6/uL 4.35-5.85 Venous blood hemoglobin measurement (mass/volume) 13.4 g/dL 11.5-16.0 Blood hematocrit (volume fraction) 39 % 35-52 Automated erythrocyte mean corpuscular volume 84 [foz_us] 80-99 Automated erythrocyte mean corpuscular hemoglobin (mass per erythrocyte) 29 pg 25-34 Automated erythrocyte mean corpuscular hemoglobin concentration measurement ( mass/volume) 34 g/dL 32-36 Automated erythrocyte distribution width ratio 13.1 % 10.0-14.5 Automated blood platelet count (count/volume) 340 10*3/uL 130-400 Automated blood platelet mean volume measurement 9.7 [foz_us] 7.4-10.4 Automated blood neutrophils/100 leukocytes 63 % 42-75 Automated blood lymphocytes/100 leukocytes 30 % 12-44 Blood monocytes/100 leukocytes 6 % 0-12 Automated blood eosinophils/100 leukocytes 2 % 0-10 Automated blood basophils/100 leukocytes 0 % 0-10 Blood neutrophils automated count (number/volume) 4.2 10*3 1.8-7.8 Blood lymphocytes automated count (number/volume) 2.0 10*3 1.0-4.0 Blood monocytes automated count (number/volume) 0.4 10*3 0.0-1.0 Automated eosinophil count 0.1 10*3/uL 0.0-0.3 Automated blood basophil count (count/volume) 0.0 10*3/uL 0.0-0.1 Blood type T Indirect antibody screen panel - 10/19/16 10:35 ABO+Rh group AN NRG Transfusion band number [id number] NRG Blood group antibody screen NEGATIVE NRG Methicillin resistant Staphylococcus aureus (MRSA) screening culture - 10:35 Methicillin resistant Staphylococcus aureus (MRSA) screening culture NEG NRG Urine beta human chorionic gonadotropin (hCG) measurement - 10/26/16 06:18 Urine beta human chorionic gonadotropin (hCG) measurement NEGATIVE NEGATIVE Blood type T Indirect antibody screen panel - 10/26/16 06:25 ABO+Rh group AN NRG Transfusion band number [id number] NRG Blood group antibody screen NEGATIVE NRG Complete blood count (CBC) with automated white blood cell (WBC) differential - 10/28/16 10:45 Blood leukocytes automated count (number/volume) 8.6 10*3/uL 4.3-11.0 Blood erythrocytes automated count (number/volume) 4.23 10*6/uL 4.35-5.85 Venous blood hemoglobin measurement (mass/volume) 12.1 g/dL 11.5-16.0 Blood hematocrit (volume fraction) 37 % 35-52 Automated erythrocyte mean corpuscular volume 87 [foz_us] 80-99 Automated erythrocyte mean corpuscular hemoglobin (mass per erythrocyte) 29 pg 25-34 Automated erythrocyte mean corpuscular hemoglobin concentration measurement ( mass/volume) 33 g/dL 32-36 Automated erythrocyte distribution width ratio 13.3 % 10.0-14.5 Automated blood platelet count (count/volume) 270 10*3/uL 130-400 Automated blood platelet mean volume measurement 9.1 [foz_us] 7.4-10.4 Automated blood neutrophils/100 leukocytes 70 % 42-75 Automated blood lymphocytes/100 leukocytes 21 % 12-44 Blood monocytes/100 leukocytes 7 % 0-12 Automated blood eosinophils/100 leukocytes 3 % 0-10 Automated blood basophils/100 leukocytes 0 % 0-10 Blood neutrophils automated count (number/volume) 6.0 10*3 1.8-7.8 Blood lymphocytes automated count (number/volume) 1.8 10*3 1.0-4.0 Blood monocytes automated count (number/volume) 0.6 10*3 0.0-1.0 Automated eosinophil count 0.2 10*3/uL 0.0-0.3 Automated blood basophil count (count/volume) 0.0 10*3/uL 0.0-0.1 Comprehensive metabolic panel - 10/28/16 10:45 Serum or plasma sodium measurement (moles/volume) 138 mmol/L 135-145 Serum or plasma potassium measurement (moles/volume) 4.0 mmol/L 3.6-5.0 Serum or plasma chloride measurement (moles/volume) 106 mmol/L 98-107 Carbon dioxide 24 mmol/L 21-32 Serum or plasma anion gap determination (moles/volume) 8 mmol/L 5-14 Serum or plasma urea nitrogen measurement (mass/volume) 5 mg/dL 7-18 Serum or plasma creatinine measurement (mass/volume) 0.75 mg/dL 0.60-1.30 Serum or plasma urea nitrogen/creatinine mass ratio 7 NRG Serum or plasma creatinine measurement with calculation of estimated glomerular filtration rate > NRG Serum or plasma glucose measurement (mass/volume) 84 mg/dL 70-105 Serum or plasma calcium measurement (mass/volume) 8.4 mg/dL 8.5-10.1 Serum or plasma total bilirubin measurement (mass/volume) 0.4 mg/dL 0.1-1.0 Serum or plasma alkaline phosphatase measurement (enzymatic activity/volume) 67 U/L 40-136 Serum or plasma aspartate aminotransferase measurement (enzymatic activity/ volume) 44 U/L 5-34 Serum or plasma alanine aminotransferase measurement (enzymatic activity/volume ) 76 U/L 0-55 Serum or plasma protein measurement (mass/volume) 6.4 g/dL 6.4-8.2 Serum or plasma albumin measurement (mass/volume) 3.5 g/dL 3.2-4.5 Complete blood count (CBC) with automated white blood cell (WBC) differential - 10/30/16 05:08 Blood leukocytes automated count (number/volume) 6.6 10*3/uL 4.3-11.0 Blood erythrocytes automated count (number/volume) 3.99 10*6/uL 4.35-5.85 Venous blood hemoglobin measurement (mass/volume) 11.5 g/dL 11.5-16.0 Blood hematocrit (volume fraction) 35 % 35-52 Automated erythrocyte mean corpuscular volume 87 [foz_us] 80-99 Automated erythrocyte mean corpuscular hemoglobin (mass per erythrocyte) 29 pg 25-34 Automated erythrocyte mean corpuscular hemoglobin concentration measurement ( mass/volume) 33 g/dL 32-36 Automated erythrocyte distribution width ratio 13.1 % 10.0-14.5 Automated blood platelet count (count/volume) 279 10*3/uL 130-400 Automated blood platelet mean volume measurement 9.8 [foz_us] 7.4-10.4 Automated blood neutrophils/100 leukocytes 62 % 42-75 Automated blood lymphocytes/100 leukocytes 29 % 12-44 Blood monocytes/100 leukocytes 6 % 0-12 Automated blood eosinophils/100 leukocytes 3 % 0-10 Automated blood basophils/100 leukocytes 0 % 0-10 Blood neutrophils automated count (number/volume) 4.1 10*3 1.8-7.8 Blood lymphocytes automated count (number/volume) 1.9 10*3 1.0-4.0 Blood monocytes automated count (number/volume) 0.4 10*3 0.0-1.0 Automated eosinophil count 0.2 10*3/uL 0.0-0.3 Automated blood basophil count (count/volume) 0.0 10*3/uL 0.0-0.1 Comprehensive metabolic panel - 10/30/16 05:08 Serum or plasma sodium measurement (moles/volume) 138 mmol/L 135-145 Serum or plasma potassium measurement (moles/volume) 4.3 mmol/L 3.6-5.0 Serum or plasma chloride measurement (moles/volume) 105 mmol/L 98-107 Carbon dioxide 26 mmol/L 21-32 Serum or plasma anion gap determination (moles/volume) 7 mmol/L 5-14 Serum or plasma urea nitrogen measurement (mass/volume) 5 mg/dL 7-18 Serum or plasma creatinine measurement (mass/volume) 0.70 mg/dL 0.60-1.30 Serum or plasma urea nitrogen/creatinine mass ratio 7 NRG Serum or plasma creatinine measurement with calculation of estimated glomerular filtration rate > NRG Serum or plasma glucose measurement (mass/volume) 83 mg/dL 70-105 Serum or plasma calcium measurement (mass/volume) 8.6 mg/dL 8.5-10.1 Serum or plasma total bilirubin measurement (mass/volume) 0.2 mg/dL 0.1-1.0 Serum or plasma alkaline phosphatase measurement (enzymatic activity/volume) 77 U/L 40-136 Serum or plasma aspartate aminotransferase measurement (enzymatic activity/ volume) 45 U/L 5-34 Serum or plasma alanine aminotransferase measurement (enzymatic activity/volume ) 61 U/L 0-55 Serum or plasma protein measurement (mass/volume) 6.2 g/dL 6.4-8.2 Serum or plasma albumin measurement (mass/volume) 3.2 g/dL 3.2-4.5 Acute hepatitis panel - 10/30/16 05:08 Confirmatory quantitative serum or plasma hepatitis B virus surface antigen measurement Non-Reactive Non-Reactive Hepatitis A virus IgM antibody assay Non-Reactive Non- Reactive Hepatitis B virus core IgM antibody assay Non-Reactive Non-Reactive Serum hepatitis C virus antibody detection Non-Reactive Non-Reactive Thyroid Stimulating Hormone - 10/09/17 13:16 TSH 5.20 mIU/mL 0.32-5.00 Encounters ACCT No. Visit Date/Time Discharge Status Pt. Type Provider Facility Loc./Unit Complaint [id number] 08/25/2013 15:28:00 08/25/2013 23:59:59 [facility] Outpatient MICHAEL SMITH DO [id number] 08/19/2013 08:32:00 08/19/2013 23:59:59 CLS Outpatient MICHAEL SMITH DO [id number] 08/04/2013 15:18:00 08/04/2013 23:59:59 CLS Outpatient MEIR GILBAKARI Mario [id number] 07/10/2013 13:29:00 07/10/2013 23:59:59 CLS Outpatient REGINA CHANCE APRNJOSÉ MIGUEL Carbone [id number] 12/03/2012 10:18:00 12/03/2012 23:59:59 CLS Outpatient CHELSEA AMADOR MD [id number] 12/02/2012 15:17:00 12/02/2012 23:59:59 CLS Outpatient ROBSON TAVARESNLENAFAYE R [id number] 09/04/2012 14:55:00 09/04/2012 23:59:59 CLS Outpatient MUSA TA PSYD [id number] 07/24/2012 15:07:00 07/24/2012 23:59:59 CLS Outpatient MUSA TA PSYD [id number] 05/16/2013 10:28:00 Document Registration [id number] 03/24/2013 13:27:00 Document Registration [id number] 03/03/2013 14:33:00 Document Registration [id number] 04/19/2017 09:05:00 04/19/2017 23:59:59 CLS Outpatient LASHONDA JOINER MD [facility] RAD LUMBAR PAIN W/ RADICULOPATHY [id number] 03/15/2017 14:23:00 03/15/2017 23:59:59 CLS Outpatient LASHONDA JOINER MD [facility] RAD CERVICAL THORACIC AND LUMBAR PAIN [id number] 11/07/2016 09:00:00 11/07/2016 23:59:59 CLS Preadmit ANGEL SHERWOOD DO [facility] RAD R10.11 [id number] 10/28/2016 13:29:00 10/30/2016 08:33:00 DIS Inpatient ANGEL SHERWOOD DO [facility] 4TH CELLULITIS FACE/DENTAL ABSCESS [id number] 10/26/2016 06:07:00 10/27/2016 13:48:00 DIS Outpatient PATRICIO VIEIRA DO [facility] SDC CPP;ENDOMETRIOSIS [id number] 10/19/2016 10:05:00 10/19/2016 11:46:00 DIS Outpatient PATRICIO VIEIRA DO [facility] PREOP CPP;ENDOMETRIOSIS [id number] 08/03/2016 15:41:00 08/05/2016 13:10:00 DIS Inpatient PATRICIO VIEIRA DO [facility] LDRP REPEAT [id number] 07/24/2016 15:17:00 07/24/2016 17:30:00 DIS Outpatient DYLON REYNOSO MD [facility] WSo CONTRACTIONS [id number] 07/05/2016 19:26:00 07/05/2016 20:55:00 DIS Outpatient MILADIS MCINTYRE, NESSA Villarreal [facility] CONTRACTIONS [id number] 03/06/2016 08:15:00 03/06/2016 23:59:59 CLS Outpatient PATRICIO VIEIRA DO [facility] RAD ABDOMINAL PAIN IN [id number] 03/03/2016 13:32:00 03/03/2016 23:59:59 CLS Outpatient PATRICIO VIEIRA DO [facility] RAD ABDOMINAL PAIN, PALPABLE ABDOMINAL AORTA [id number] 01/09/2016 22:37:00 01/10/2016 00:58:00 DIS Emergency DIPESH ALEJANDRO [facility] ER ABD PAIN/BLEEDING 7 WEEKS [id number] 11/24/2015 09:04:00 11/24/2015 23:59:59 CLS Outpatient KIMI MARKS [facility] OCC [id number] 11/16/2015 11:19:00 11/16/2015 15:04:00 DIS Emergency DIPESH ALEJANDRO [facility] ER ABD/BACK PAIN; POSSIBLY [id number] 04/22/2014 20:30:00 04/24/2014 14:20:00 DIS Inpatient PATRICIO VIEIRA DO [facility] LDRP [id number] 03/30/2014 22:12:00 03/31/2014 00:40:00 DIS Outpatient PATRICIO VIEIRA DO [facility] WSo [id number] 02/17/2014 13:52:00 02/17/2014 14:35:00 DIS Outpatient PATRICIO VIEIRA DO S [facility] [id number] 01/26/2014 19:09:00 01/26/2014 22:05:00 DIS Outpatient PATRICIO VIEIRA DO S [facility] [id number] 12/29/2013 14:48:00 12/29/2013 16:35:00 DIS Outpatient PATRICIO VIEIRA DO S [facility] [id number] 10/22/2013 15:40:00 10/23/2013 18:30:00 DIS [facility] [id number] 08/30/2013 01:11:00 08/30/2013 03:23:00 DIS Emergency JONATHAN WEST DO [facility] ER [id number] 07/14/2013 23:50:00 07/16/2013 13:40:00 DIS Inpatient [id number] 01/28/2013 19:33:00 01/28/2013 23:59:59 CLS Outpatient [id number] 08/03/2016 16:20:00 Document Registration [id number] 11/16/2015 11:18:00 Document Registration [id number] 11/24/2012 20:51:00 Document Registration [id number] 01/04/2012 18:40:00 Document Registration [id number] 11/08/2011 17:48:00 Document Registration [id number] 09/01/2011 11:04:00 Document Registration [id number] 11/03/2010 19:14:00 Document Registration [id number] 10/09/2017 13:15:00 10/09/2017 23:59:00 DIS Outpatient LASHONDA JOINER [id number] 10/10/2017 06:33:04 Document Registration
[2018-01-24 14:17] LABS: BILIRUBIN,URINE NEGATIVE (NEGATIVE); CLARITY,URINE SLIGHTLY CLOUDY; COLOR,URINE YELLOW; GLUCOSE, URINE (UA) NEGATIVE (NEGATIVE); KETONES,URINE NEGATIVE (NEGATIVE); LEUKOCYTE ESTERASE ,URINE NEGATIVE (NEGATIVE); NITRITE,URINE NEGATIVE (NEGATIVE); PH,URINE 8 (5-9); PROTEIN,URINE NEGATIVE (NEGATIVE); UROBILINOGEN,URINE NORMAL (NORMAL)
[2018-01-24 14:23] LABS: AMORPHOUS SEDIMENT,UR MOD AMOR PHOSPHATE /LPF; BACTERIA,URINE NEGATIVE /HPF
[2018-01-24] MEDS: NS IV 1000 ML 1,000 ML IV SCH (14:34)
[2018-01-24 14:36] LABS: BASOPHILS % (AUTO) 0 % (0-10); EOSINOPHILS # (AUTO) 0.2 10^3/uL (0.0-0.3); EOSINOPHILS % (AUTO) 3 % (0-10); HEMATOCRIT 38 % (35-52); HEMOGLOBIN 13.1 G/DL (11.5-16.0); LYMPHOCYTES # (AUTO) 2.4 X 10^3 (1.0-4.0); LYMPHOCYTES % (AUTO) 37 % (12-44); MEAN CORPUSCULAR HEMOGLOBIN 30 PG (25-34); MEAN CORPUSCULAR HGB CONC 34 G/DL (32-36); MEAN CORPUSCULAR VOLUME 89 FL (80-99); MEAN PLATELET VOLUME 9.1 FL (7.4-10.4); MONOCYTES # (AUTO) 0.4 X 10^3 (0.0-1.0); MONOCYTES % (AUTO) 6 % (0-12); NEUTROPHILS # (AUTO) 3.5 X 10^3 (1.8-7.8); NEUTROPHILS % (AUTO) 54 % (42-75); PLATELET COUNT 300 10^3/uL (130-400); RED BLOOD COUNT 4.31 10^6/uL (4.35-5.85); RED CELL DISTRIBUTION WIDTH 11.9 % (10.0-14.5); WHITE BLOOD COUNT 6.5 10^3/uL (4.3-11.0)
[2018-01-24 14:51] LABS: ALANINE AMINOTRANSFERASE 13 U/L (0-55); ALBUMIN 3.9 GM/DL (3.2-4.5); ALKALINE PHOSPHATASE 47 U/L (40-136); BILIRUBIN,TOTAL 0.5 MG/DL (0.1-1.0); BUN/CREATININE RATIO 15; CALCIUM 8.9 MG/DL (8.5-10.1); CARBON DIOXIDE 22 MMOL/L (21-32); CHLORIDE 112 MMOL/L (98-107); CREATININE SERUM 0.73 MG/DL (0.60-1.30); GFR ESTIMATED > 60; GLUCOSE 99 MG/DL (70-105); POTASSIUM 3.8 MMOL/L (3.6-5.0); SODIUM 138 MMOL/L (135-145); TOTAL PROTEIN 7.3 GM/DL (6.4-8.2)
--- NOTE | 2018-01-24 15:12 | ED GI ---
General Chief Complaint: Abdominal/GI Problems Stated Complaint: RIGHT SIDE PAIN DIARRHEA VOMITING FEVER Nursing Triage Note: PT AMBULATED TO RM 7 W/O DIFFICULTIES. PT STATES SHE STARTED COUGHING AND VOMITING ON SUNDAY. SYMPTOMS CONTINUED SUNDAY WHEN DIARRHEA BEGAN SUNDAY WELL. PT THEN STARTED WITH R SIDED PAIN ON SUN AND WAS RUNNING 101.2 FEVER. PT WAS SEEN IN DR'S OFFICE TODAY AND SENT HERE FOR CT SCAN Sepsis Screen: Possible Sepsis Risk Source of Information: Patient Exam Limitations: No Limitations History of Present Illness Date Seen by Provider: Jan 24, 2018 Time Seen by Provider: 15:07 Initial Comments The patient is a 27-year-old white female who presents after having been seen at Dr. Liana Packer office, and was advised after relating symptoms, to come to the emergency room for further study. Patient reports that she was at work on Sunday and began to have coughing. After coughing particularly hard she then vomited. She vomited 2 additional times and was then sent home by her employer. This continued through Sunday and Sunday and on Sunday she began to have diarrhea as well. She describes feeling very hot at times and at other times having sweats and chills. She estimates that she has 3-6 watery stools per day. She has taken very little to eat and has mostly concentrated on fluids. Timing/Duration: 4-5 Days Severity/Quality: Mild, Moderate Location: Generalized Abdomen Allergies and Home Medications Allergies Coded Allergies: No Known Drug Allergies (Unverified , 10/19/16) Home Medications Amoxicillin/Potassium Clav 1 Each Tablet, 1 EACH PO BID Prescribed by: ANGEL SHERWOOD on 10/30/16831 Butalb/Acetaminophen/Caffeine 1 Each Tablet, 1 TAB PO Q4H PRN for MIGRAINE, ( Reported) Docusate Sodium 100 Mg Capsule, 100 MG PO BID PRN for CONSTIPATION Prescribed by: PATRICIO VIEIRA on 10/26/16 09 Lactulose 20 Gm/30 Ml Solution, 10 GM PO BID Prescribed by: ANGEL SHERWOOD on 10/30/16831 Oxycodone HCl/Acetaminophen 1 Each Tablet, 1 EACH PO Q4H PRN for PAIN Prescribed by: ANGEL SHERWOOD on 10/30/16 08 Phentermine HCl 37.5 Mg Tablet, 37.5 MG PO DAILY, (Reported) Simethicone 80 Mg Tab.chew, 40 MG PO TID PRN for INDIGESTION Prescribed by: PATRICIO VIEIRA on 10/26/16 0912 Patient Home Medication List Home Medication List Reviewed: Yes Review of Systems Constitutional: see HPI EENTM: No Symptoms Reported Respiratory: Cough Cardiovascular: No Symptoms Reported Gastrointestinal: See HPI, Abdominal Pain, Diarrhea, Nausea, Vomiting Genitourinary: No Symptoms Reported Musculoskeletal: no symptoms reported Skin: no symptoms reported Psychiatric/Neurological: No Symptoms Reported Endocrine: No Symptoms Reported Hematologic/Lymphatic: No Symptoms Reported Past Xxghvdo-Gylzbc-Qoejnv Hx Patient Social History Alcohol Use: Denies Use Recreational Drug Use: No Type Used: Cigarettes Former Smoker, Quit: Dec 31, 2015 2nd Hand Smoke Exposure: Yes Recent Foreign Travel: No Contact w/Someone Who Travel: No Recent Infectious Disease Expo: No Recent Hopitalizations: Yes (PARTIAL HYST) Physical Abuse: No Sexual Abuse: No Immunizations Up To Date Tetanus Booster (TDap): More than 5yrs PED Vaccines UTD: Yes Seasonal Allergies Seasonal Allergies: No Past Medical History Surgeries: Yes (CS X4) Section, Hysterectomy Respiratory: Yes ( A CHILD) Asthma Cardiac: No Neurological: Yes ("SEIZURE ACTIVITY"- RELATED) Headaches /Migraines, TIA : No (HYSTERECTOMY 10/17) Reproductive Disorders: Yes (CPP, DYSMENORRHIA) Female Reproductive Disorders: Menstrual Problems, Endometriosis, Ovarian Cyst Sexually Transmitted Disease: No HIV/AIDS: No Kidney Infection, Bladder Infection Gastrointestinal: No Musculoskeletal: No Endocrine: No Loss of Vision: Bilateral Hearing Impairment: Denies Cancer: No Psychosocial: Yes Anxiety, Depression Nursing Suicide Risk Score: 0 Integumentary: No Recent Skin Changes Blood Disorders: No Adverse Reaction/Blood Tranf: No Family Medical History Diabetes mellitus (grandmother) Family history: Hypertension 19 MOTHER Hereditary disease daughter (Alec Henry's syndrome) Stroke 19 FATHER No Pertinent Family Hx Physical Exam Vital Signs Vital Signs - First Documented 01/24/18 13:46 Temp 97.8 Pulse 98 Resp 20 B/P (MAP) 127/87 (100) O2 Delivery Room Air Capillary Refill : Less Than 3 Seconds General Appearance: mild distress HEENT: normal ENT inspection Neck: non-tender, full range of motion, supple, normal inspection Respiratory: chest non-tender, lungs clear, normal breath sounds, no respiratory distress, no accessory muscle use Cardiovascular: normal peripheral pulses, regular rate, rhythm, no edema, no gallop, no JVD, no murmur Gastrointestinal: abnormal bowel sounds (decreased), tenderness (right upper quadrant) Extremities: normal range of motion, non-tender, normal inspection, no pedal edema, no calf tenderness, normal capillary refill, pelvis stable 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, no motor/sensory deficits, alert, normal mood/affect, oriented x 3 Skin: normal color, warm/dry Lymphatic: no adenopathy Progress/Results/Core Measures Lab Results Laboratory Tests Test 01/24/18 13:48 01/24/18 14:25 Range/Units Urine Color YELLOW Urine Clarity SLIGHTLY CLOUDY Urine pH 8 5-9 Urine Specific Purlear 1.015 L 1.016-1.022 Urine Protein NEGATIVE NEGATIVE Urine Glucose (UA) NEGATIVE NEGATIVE Urine Ketones NEGATIVE NEGATIVE Urine Nitrite NEGATIVE NEGATIVE Urine Bilirubin NEGATIVE NEGATIVE Urine Urobilinogen NORMAL NORMAL MG/DL Urine Leukocyte Esterase NEGATIVE NEGATIVE Urine RBC (Auto) NEGATIVE NEGATIVE Urine RBC NONE /HPF Urine WBC NONE /HPF Urine Squamous Epithelial Cells 5-10 /HPF Urine Crystals PRESENT H /LPF Urine Amorphous Sediment MOD KIRILL PHOSPHATE H /LPF Urine Bacteria NEGATIVE /HPF Urine Casts NONE /LPF Urine Mucus NEGATIVE /LPF Urine Culture Indicated NO Urine Test NEGATIVE NEGATIVE White Blood Count 6.5 4.3-11.0 10^3/uL Red Blood Count 4.31 L 4.35-5.85 10^6/uL Hemoglobin 13.1 11.5-16.0 G/DL Hematocrit 38 35-52 % Mean Corpuscular Volume 89 80-99 FL Mean Corpuscular Hemoglobin 30 25-34 PG Mean Corpuscular Hemoglobin Concent 34 32-36 G/DL Red Cell Distribution Width 11.9 10.0-14.5 % Platelet Count 300 130-400 10^3/uL Mean Platelet Volume 9.1 7.4-10.4 FL Neutrophils (%) (Auto) 54 42-75 % Lymphocytes (%) (Auto) 37 12-44 % Monocytes (%) (Auto) 6 0-12 % Eosinophils (%) (Auto) 3 0-10 % Basophils (%) (Auto) 0 0-10 % Neutrophils # (Auto) 3.5 1.8-7.8 X 10^3 Lymphocytes # (Auto) 2.4 1.0-4.0 X 10^3 Monocytes # (Auto) 0.4 0.0-1.0 X 10^3 Eosinophils # (Auto) 0.2 0.0-0.3 10^3/uL Basophils # (Auto) 0.0 0.0-0.1 10^3/uL Sodium Level 138 135-145 MMOL/L Potassium Level 3.8 3.6-5.0 MMOL/L Chloride Level 112 H 98-107 MMOL/L Carbon Dioxide Level 22 21-32 MMOL/L Anion Gap 4 L 5-14 MMOL/L Blood Urea Nitrogen 11 7-18 MG/DL Creatinine 0.73 0.60-1.30 MG/DL Estimat Glomerular Filtration Rate > 60 BUN/Creatinine Ratio 15 Glucose Level 99 70-105 MG/DL Calcium Level 8.9 8.5-10.1 MG/DL Total Bilirubin 0.5 0.1-1.0 MG/DL Aspartate Amino Transf (AST/SGOT) 17 5-34 U/L Alanine Aminotransferase (ALT/SGPT) 13 0-55 U/L Alkaline Phosphatase 47 40-136 U/L Total Protein 7.3 6.4-8.2 GM/DL Albumin 3.9 3.2-4.5 GM/DL My Orders Orders - ROBERT LARKIN MD Cbc With Automated Diff (01/24/18 14:08) Comprehensive Metabolic Panel (01/24/18 14:08) Ua Culture If Indicated (01/24/18 14:08) Ns Iv 1000 Ml (Sodium Chloride 0.9%) (01/24/18 14:15) Hcg,Qualitative Urine (01/24/18 14:52) Us Gallbladder [id number] (01/24/18 15:21) Vital Signs/I&O 01/24/18 13:46 Temp 97.8 Pulse 98 Resp 20 B/P (MAP) 127/87 (100) O2 Delivery Room Air Blood Pressure Mean: 100 Departure Communication (Admissions) Because of focused pain in the right upper quadrant ultrasound was done. Although the gallbladder was somewhat contracted there were no evidence of stones. Impression Primary Impression: Nausea and vomiting Additional Impressions: Gastroenteritis gastroenteritis Disposition: 01 HOME, SELF-CARE Condition: Stable/Unchanged Departure-Patient Inst. Decision time for Depature: 16:00 Referrals: LIANA PACKER MD (PCP/Family) Primary Care Physician Patient Instructions: No Instuctions Given Add. Discharge Instructions: All discharge instructions reviewed with patient and/or family. Voiced understanding. Use Zofran as needed to control nausea and vomiting. Take only clear liquids. 7-Up and Gatorade are suggested. Do not attempt to eat until there has been no diarrhea for 24 hours. At that point you may start with a few soda crackers, then go to broth and broth soup, next to steamed rice or mashed potatoes with broth if desired. At that point you may move cautiously to solid food. Scripts Ondansetron (Zofran Odt) 8 Mg Tab.rapdis 1 TAB PO EVERY 4 HOURS, #10 TAB Prov: ROBERT LARKIN MD 01/24/18 ROBERT LARKIN MD Jan 24, 2018 15:12
--- NOTE | 2018-01-24 15:57 | Diagnostic Imaging Report ---
PROCEDURE: US Gallbladder. TECHNIQUE: Multiple real-time grayscale images were obtained over the right upper quadrant in various projections. INDICATION: Abdominal pain. FINDINGS: Grayscale imaging of the gallbladder reveals no intraluminal filling defect. There is no gallbladder wall thickening or pericholecystic fluid. No intra or extrahepatic biliary ductal dilatation is identified. Gallbladder is partially contracted. The pancreas is largely obscured. No abdominal aortic or inferior vena caval abnormality is identified. There is no evidence of free fluid. Imaging was also performed in the right lower quadrant without evidence of noncompressible tubular structure to suggest an acute appendicitis. IMPRESSION: Unremarkable right upper quadrant abdominal ultrasound. Dictated by: Dictated on workstation # [id number]
[2018-01-24] MEDS ORDERED: ONDA8TAB9 PO (16:05)
[2018-01-24 16:30] VITALS: BP 122/84
== END 2018-01-24 16:30 | disposition home or self-care (01) ==
LOC: EDUNIT# 13:41 → ER 13:43
DX: K52.9 Noninfective gastroenteritis and colitis, unspecified (principal); J45.909 Unspecified asthma, uncomplicated; G43.909 Migraine, unspecified, not intractable, without status migrainosus; F41.9 Anxiety disorder, unspecified; F32.9 Major depressive disorder, single episode, unspecified; Z82.49 Family history of ischemic heart disease and other diseases of the circulatory system; Z86.73 Personal history of transient ischemic attack (TIA), and cerebral infarction without residual deficits; Z87.891 Personal history of nicotine dependence; Z87.448 Personal history of other diseases of urinary system; Z90.710 Acquired absence of both cervix and uterus; Z87.59 Personal history of other complications of pregnancy, childbirth and the puerperium
CPT/HCPCS: 36415; 76705; 80053; 81000; 84703; 85025; 96360

== ENCOUNTER → 2018-02-04 | Outpatient (CLI) | payer MEDICAID ==
[~2018-02-04] MED LIST changes: +CATHETER FLUSH 10 ML SYR IV PRN; +ONDA8TAB9 PO
--- NOTE | 2018-02-04 12:58 | Diagnostic Imaging Report ---
INDICATION: Right upper quadrant pain. COMPARISON: Right upper quadrant ultrasound 01/24/2018. Nuclear medicine hepatobiliary scan from 01/06/2012 TECHNIQUE: Anterior scintigraphic imaging of the abdomen was performed after the intravenous administration of 5.22 mCi Tc-99m Choletec. FINDINGS: The upper abdomen was imaged for 60 minutes with the gamma camera. There is prompt homogeneous uptake of radiopharmaceutical by the liver. There is activity in the common duct and gallbladder by 15 minutes. Small bowel activity is seen by 70 minutes. After 60 minutes, the patient 8 ounces of ensure by mouth. Imaging was then performed for an additional 60 minutes, and the gallbladder ejection fraction was determined to be 81%. IMPRESSION: 1. Patent common and cystic bile ducts. 2. Normal gallbladder function with ejection fraction of 81%. Dictated by: Dictated on workstation # [id number]
== END ==
LOC: CARD 08:48
PROVIDERS: ATTEND Nurse Practitioner Family
DX: R10.11 Right upper quadrant pain (principal)
CPT/HCPCS: 78227

== ENCOUNTER 2019-03-03 16:52 | Emergency (ER) | payer MEDICAID ==
[~2019-03-03 16:52] MED LIST changes: -CATHETER FLUSH 10 ML SYR IV PRN; -OXYC-202 PO; +OXYC1TAB12 PO
[2019-03-03] MEDS ORDERED: NS IV 1000 ML 1,000 ML IV ONE (17:20)
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
[2019-03-03] MEDS ORDERED: WATER (STERILE) FOR INJECTION 10 ML ONE (19:29)
[2019-03-03] MEDS ORDERED: LORazepam INJ 2 MG/ML (ATIVAN) VIAL ONE (22:31)
--- OUTSIDE RECORDS SUMMARY | 2019-03-03 23:07 | XMS REPORT ---
Author Author Migration, Doctor Organization [facility] Address Unknown Phone Unavailable Care Team Providers Care Barrel Washer Name Role Phone Migration, Doctor Unavailable Unavailable PROBLEMS Type Condition ICD9-CM Code PAS46-NH Code Onset Dates Condition Status SNOMED Code Problem examination or test, positive result V72.42 Active 458486612 Problem Abdominal pain, periumbilic 789.05 Active 047211705 Problem Abdominal pain, other specified site 789.09 Active 98833540 Problem Dysuria 788.1 Active 47049626 Problem Urinary frequency 788.41 Active 294895386 Problem Rash and other nonspecific skin eruption 782.1 Active 632392459 Problem Lumbago 724.2 Active 467019776 Problem Unspecified backache 724.5 Active 217753906 Problem Posttraumatic stress disorder 309.81 Active 56512878 Problem Polydipsia 783.5 Active 76756444 Problem Obesity, unspecified 278.00 Active 265407308 Problem Cough 786.2 Active 68857007 Problem Irregular menstrual cycle 626.4 Active 22924844 Problem Unspecified symptom associated with female genital organs 625.9 Active 944662785 Problem Urinary tract infection, site not specified 599.0 Active 30763489 Problem Anal or rectal pain 569.42 Active 58763133 ALLERGIES No Information ENCOUNTERS Encounter Location Date Diagnosis [facility] [id number] [place] [address] Dec, [facility] [id number] [place] [address] Dec, [facility] [id number] [place] [address] Aug, [facility] [id number] [place] [address] Aug, [facility] [id number] [place] [address] Aug, [facility] [place] [facility] [address] [id number] [place] [address] Aug, [facility] [place] [facility] [address] [id number] [place] [address] Aug, [facility] [place] [facility] [address] [id number] [place] [address] Aug, [facility] [place] [facility] [address] [id number] [place] [address] Aug, [facility] [place] [facility] [address] [id number] [place] [address] Aug, [facility] [place] [facility] [address] [id number] [place] [address] Aug, [facility] [place] [facility] [address] [id number] [place] [address] Jul, [facility] [place] [facility] [address] [id number] [place] [address] Jul, [facility] [place] [facility] [address] [id number] [place] [address] Jul, [facility] [place] [facility] [address] [id number] [place] [address] Jul, [facility] [place] [facility] [address] [id number] [place] [address] May, [facility] [place] [facility] [address] [id number] [place] [address] May, [facility] [place] [facility] [address] [id number] [place] [address] Mar, [facility] [place] [facility] [address] [id number] [place] [address] Mar, [facility] [place] [facility] [address] [id number] [place] [address] Mar, [facility] [place] [facility] [address] [id number] [place] [address] Mar, [facility] [address] [id number] [place] [address] Mar, [facility] [place] [facility] [address] [id number] [place] [address] January, [facility] [place] [facility] [address] [id number] [place] [address] January, [facility] [place] [facility] [address] [id number] [place] [address] January, [facility] [address] [id number] [place] [address] Dec, [facility] [place] [facility] [address] [id number] [place] [address] Dec, [facility] [address] [id number] [place] [address] Nov, [facility] [place] [facility] [address] [id number] [place] [address] Nov, [facility] [place] [facility] [address] [id number] [place] [address] Nov, [facility] [place] [facility] [address] [id number] [place] [address] Nov, [facility] [place] [facility] [address] [id number] [place] [address] Nov, [facility] [place] [facility] [address] [id number] [place] [address] Nov, [facility] [place] [facility] [address] [id number] [place] [address] Aug, [facility] [place] [facility] [address] [id number] [place] [address] Aug, [facility] [place] [facility] [address] [id number] [place] [address] Aug, [facility] [place] [facility] [address] [id number] [place] [address] Aug, [facility] [address] [id number] [place] [address] Aug, [facility] [place] [facility] [address] [id number] [place] [address] Aug, [facility] [place] [facility] [address] [id number] [place] [address] Aug, [facility] [place] [facility] [address] [id number] [place] [address] Aug, [facility] [place] [facility] [id number] [place] [address], [place] [address] Aug, [facility] [place] [facility] [address] [id number] [place] [address] Aug, [facility] [place] [facility] [address] [id number] [place] [address] Aug, [facility] [place] [facility] [address] [id number] [place] [address] Aug, [facility] [place] [facility] [address] [id number] [place] [address] Aug, [facility] [place] [facility] [address] [facility] [id number] [place] [address] Aug, [facility] [place] [facility] [address] [id number] [place] [address] Jul, [facility] [place] [facility] [address] [id number] [place] [address] Jul, [facility] [place] [facility] [address] [id number] [place] [address] 2012 [facility] [place] [facility] [address] [id number] [place] [address] 19 Jun, 2012 [facility] [place] [facility] [address] [id number] [place] [address] Jun, [facility] [address] [facility] [id number] [place] [address] Mar, [facility] [address] [facility] [id number] [place] [address] Jul, IMMUNIZATIONS No Known Immunizations SOCIAL HISTORY Never Assessed REASON FOR VISIT EMR-[facility] PLAN OF CARE VITAL SIGNS MEDICATIONS Unknown Medications RESULTS No Results PROCEDURES No Known procedures INSTRUCTIONS MEDICATIONS ADMINISTERED No Known Medications
--- OUTSIDE RECORDS SUMMARY | 2019-03-03 23:07 | XMS REPORT ---
Author Author Migration, Doctor Organization [facility] Address Unknown Phone Unavailable Care Team Providers Care Customer Manager Name Role Phone Migration, Doctor Unavailable Unavailable PROBLEMS Type Condition ICD9-CM Code SAD98-IN Code Onset Dates Condition Status SNOMED Code Problem examination or test, positive result V72.42 Active 630184366 Problem Abdominal pain, periumbilic 789.05 Active 165644471 Problem Abdominal pain, other specified site 789.09 Active 42142161 Problem Dysuria 788.1 Active 66555920 Problem Urinary frequency 788.41 Active 970363132 Problem Rash and other nonspecific skin eruption 782.1 Active 884352929 Problem Lumbago 724.2 Active 676229149 Problem Unspecified backache 724.5 Active 447347441 Problem Posttraumatic stress disorder 309.81 Active 02945320 Problem Polydipsia 783.5 Active 55153284 Problem Obesity, unspecified 278.00 Active 111852012 Problem Cough 786.2 Active 53176344 Problem Irregular menstrual cycle 626.4 Active 40899570 Problem Unspecified symptom associated with female genital organs 625.9 Active 918722644 Problem Urinary tract infection, site not specified 599.0 Active 37418755 Problem Anal or rectal pain 569.42 Active 81996352 ALLERGIES No Information ENCOUNTERS Encounter Location Date Diagnosis [facility] [id number] [place] [address] Dec, [facility] [id number] [place] [address] Dec, [facility] [id number] [place] [address] Aug, [facility] [id number] [place] [address] Aug, [facility] [id number] [place] [address] Aug, [facility] [place] [facility] [address] [id number] [place] [address] Aug, [facility] [place] [facility] [address] [id number] [place] [address] Aug, [facility] [place] [facility] [address] [id number] [place] [address] Aug, [facility] [place] [facility] [address] [id number] [place] [address] Aug, [facility] [place] [facility] [address] [id number] [place] [address] Aug, [facility] [place] [facility] [address] [id number] [place] [address] Aug, [facility] [place] [facility] [address] [id number] [place] [address] Jul, [facility] [place] [facility] [address] [id number] [place] [address] Jul, [facility] [place] [facility] [address] [id number] [place] [address] Jul, [facility] [place] [facility] [address] [id number] [place] [address] Jul, [facility] [place] [facility] [address] [id number] [place] [address] May, [facility] [place] [facility] [address] [id number] [place] [address] May, [facility] [place] [facility] [address] [id number] [place] [address] Mar, [facility] [place] [facility] [address] [id number] [place] [address] Mar, [facility] [place] [facility] [address] [id number] [place] [address] Mar, [facility] [place] [facility] [address] [id number] [place] [address] Mar, [facility] [address] [id number] [place] [address] Mar, [facility] [place] [facility] [address] [id number] [place] [address] January, [facility] [place] [facility] [address] [id number] [place] [address] January, [facility] [place] [facility] [address] [id number] [place] [address] January, [facility] [address] [id number] [place] [address] Dec, [facility] [place] [facility] [address] [id number] [place] [address] Dec, [facility] [address] [id number] [place] [address] Nov, [facility] [place] [facility] [address] [id number] [place] [address] Nov, [facility] [place] [facility] [address] [id number] [place] [address] Nov, [facility] [place] [facility] [address] [id number] [place] [address] Nov, [facility] [place] [facility] [address] [id number] [place] [address] Nov, [facility] [place] [facility] [address] [id number] [place] [address] Nov, [facility] [place] [facility] [address] [id number] [place] [address] Aug, [facility] [place] [facility] [address] [id number] [place] [address] Aug, [facility] [place] [facility] [address] [id number] [place] [address] Aug, [facility] [place] [facility] [address] [id number] [place] [address] Aug, [facility] [address] [id number] [place] [address] Aug, [facility] [place] [facility] [address] [id number] [place] [address] Aug, [facility] [place] [facility] [address] [id number] [place] [address] Aug, [facility] [place] [facility] [address] [id number] [place] [address] Aug, [facility] [place] [facility] [address] [id number] [place] [address], [place] [address] Aug, [facility] [place] [facility] [address] [id number] [place] [address] Aug, [facility] [place] [facility] [address] [id number] [place] [address] Aug, [facility] [place] [facility] [address] [id number] [place] [address] Aug, [facility] [place] [facility] [address] [id number] [place] [address] Aug, [facility] [place] [facility] [address] [facility] [id number] [place] [address] Aug, [facility] [place] [facility] [address] [id number] [place] [address] Jul, [facility] [place] [facility] [address] [id number] [place] [address] Jul, [facility] [place] [facility] [address] [id number] [place] [address] 2012 [facility] [place] [facility] [address] [id number] [place] [address] 19 Jun, 2012 [facility] [place] [facility] [address] [id number] [place] [address] Jun, [facility] [address] [facility] [id number] [place] [address] Mar, [facility] [address] [facility] [id number] [place] [address] Jul, IMMUNIZATIONS No Known Immunizations SOCIAL HISTORY Never Assessed REASON FOR VISIT EMR-[facility] PLAN OF CARE VITAL SIGNS MEDICATIONS Unknown Medications RESULTS No Results PROCEDURES No Known procedures INSTRUCTIONS MEDICATIONS ADMINISTERED No Known Medications
--- OUTSIDE RECORDS SUMMARY | 2019-03-03 23:07 | XMS REPORT ---
Author Author Migration, Doctor Organization [facility] [place] [facility] Address Unknown Phone Unavailable Care Team Providers Care Cash Person Name Role Phone Migration, Doctor Unavailable Unavailable PROBLEMS Type Condition ICD9-CM Code NFN28-NW Code Onset Dates Condition Status SNOMED Code Problem examination or test, positive result V72.42 Active 232054392 Problem Abdominal pain, periumbilic 789.05 Active 701089949 Problem Abdominal pain, other specified site 789.09 Active 97253851 Problem Dysuria 788.1 Active 10998611 Problem Urinary frequency 788.41 Active 976000245 Problem Rash and other nonspecific skin eruption 782.1 Active 797997964 Problem Lumbago 724.2 Active 140320344 Problem Unspecified backache 724.5 Active 619558635 Problem Posttraumatic stress disorder 309.81 Active 51437628 Problem Polydipsia 783.5 Active 59526643 Problem Obesity, unspecified 278.00 Active 035829233 Problem Cough 786.2 Active 38757031 Problem Irregular menstrual cycle 626.4 Active 85057592 Problem Unspecified symptom associated with female genital organs 625.9 Active 480614981 Problem Urinary tract infection, site not specified 599.0 Active 50679707 Problem Anal or rectal pain 569.42 Active 24696485 ALLERGIES No Information ENCOUNTERS Encounter Location Date Diagnosis [facility] [id number] [place] [address] Dec, [facility] [id number] [place] [address] Dec, [facility] [id number] [place] [address] Aug, [facility] [id number] [place] [address] Aug, [facility] [address] [place] [address] Aug, [facility] [place] [facility] [address] [id number] [place] [address] Aug, [facility] [place] [facility] [address] [id number] [place] [address] Aug, [facility] [place] [facility] [address] [id number] [place] [address] Aug, [facility] [place] [facility] [address] [id number] [place] [address] Aug, [facility] [place] [facility] [address] [id number] [place] [address] Aug, [facility] [place] [facility] [address] [id number] [place] [address] Aug, [facility] [place] [facility] [address] [id number] [place] [address] Jul, [facility] [place] [facility] [address] [id number] [place] [address] Jul, [facility] [place] [facility] [address] [id number] [place] [address] Jul, [facility] [place] [facility] [address] [id number] [place] [address] Jul, [facility] [place] [facility] [address] [id number] [place] [address] May, [facility] [place] [facility] [address] [id number] [place] [address] May, [facility] [place] [facility] [address] [id number] [place] [address] Mar, [facility] [place] [facility] [address] [id number] [place] [address] Mar, [facility] [place] [facility] [address] [id number] [place] [address] Mar, [facility] [place] [facility] [address] [id number] [place] [address] Mar, [facility] [address] [id number] [place] [address] Mar, [facility] [place] [facility] [address] [id number] [place] [address] January, [facility] [place] [facility] [address] [id number] [place] [address] January, [facility] [place] [facility] [address] [id number] [place] [address] January, [facility] [address] [id number] [place] [address] Dec, [facility] [place] [facility] [address] [id number] [place] [address] Dec, [facility] [address] [id number] [place] [address] Nov, [facility] [place] [facility] [address] [id number] [place] [address] Nov, [facility] [place] [facility] [address] [id number] [place] [address] Nov, [facility] [place] [facility] [address] [id number] [place] [address] Nov, [facility] [place] [facility] [address] [id number] [place] [address] Nov, [facility] [place] [facility] [address] [id number] [place] [address] Nov, [facility] [place] [facility] [address] [id number] [place] [address] Aug, [facility] [place] [facility] [address] [id number] [place] [address] Aug, [facility] [place] [facility] [address] [id number] [place] [address] Aug, [facility] [place] [facility] [address] [id number] [place] [address] Aug, [facility] [address] [id number] [place] [address] Aug, [facility] [place] [facility] [address] [id number] [place] [address] Aug, [facility] [place] [facility] [address] [id number] [place] [address] Aug, [facility] [place] [facility] [address] [id number] [place] [address] Aug, [facility] [place] [facility] [address] [id number] [place] [address], [place] [address] Aug, [facility] [place] [facility] [address] [id number] [place] [address] Aug, [facility] [place] [facility] [address] [id number] [place] [address] Aug, [facility] [place] [facility] [address] [id number] [place] [address] Aug, [facility] [place] [facility] [address] [id number] [place] [address] Aug, [facility] [place] [facility] [address] [facility] [id number] [place] [address] Aug, [facility] [place] [facility] [address] [id number] [place] [address] Jul, [facility] [place] [facility] [address] [id number] [place] [address] Jul, [facility] [place] [facility] [address] [id number] [place] [address] 2012 [facility] [place] [facility] [address] [id number] [place] [address] 19 Jun, 2012 [facility] [place] [facility] [address] [id number] [place] [address] Jun, [facility] [address] [facility] [id number] [place] [address] Mar, [facility] [address] [facility] [id number] [place] [address] Jul, IMMUNIZATIONS No Known Immunizations SOCIAL HISTORY Never Assessed REASON FOR VISIT EMR-[facility] PLAN OF CARE VITAL SIGNS MEDICATIONS Unknown Medications RESULTS No Results PROCEDURES No Known procedures INSTRUCTIONS MEDICATIONS ADMINISTERED No Known Medications
--- OUTSIDE RECORDS SUMMARY | 2019-03-03 23:08 | XMS REPORT ---
Author Author Migration, Doctor Organization [facility] Address Unknown Phone Unavailable Care Team Providers Care Software Development Test Engineer Name Role Phone Migration, Doctor Unavailable Unavailable PROBLEMS Type Condition ICD9-CM Code YZL29-UB Code Onset Dates Condition Status SNOMED Code Problem examination or test, positive result V72.42 Active 158585912 Problem Abdominal pain, periumbilic 789.05 Active 393086427 Problem Abdominal pain, other specified site 789.09 Active 31331260 Problem Dysuria 788.1 Active 65536207 Problem Urinary frequency 788.41 Active 330621921 Problem Rash and other nonspecific skin eruption 782.1 Active 816980846 Problem Lumbago 724.2 Active 563339694 Problem Unspecified backache 724.5 Active 730057944 Problem Posttraumatic stress disorder 309.81 Active 74038841 Problem Polydipsia 783.5 Active 92578601 Problem Obesity, unspecified 278.00 Active 051368673 Problem Cough 786.2 Active 72382663 Problem Irregular menstrual cycle 626.4 Active 38750714 Problem Unspecified symptom associated with female genital organs 625.9 Active 068925115 Problem Urinary tract infection, site not specified 599.0 Active 17162343 Problem Anal or rectal pain 569.42 Active 31632093 ALLERGIES No Information ENCOUNTERS Encounter Location Date Diagnosis [facility] [address] [place] [address] Dec, [facility] [id number] [place] [address] Dec, [facility] [id number] [place] [address] Aug, [facility] [id number] [place] [address] Aug, [facility] [address] [place] [address] Aug, [facility] [place] [facility] [address] [id number] [place] [address] Aug, [facility] [place] [facility] [address] [id number] [place] [address] Aug, [facility] [place] [facility] [address] [id number] [place] [address] Aug, [facility] [place] [facility] [address] [id number] [place] [address] Aug, [facility] [place] [facility] [address] [id number] [place] [address] Aug, [facility] [place] [facility] [address] [id number] [place] [address] Aug, [facility] [place] [facility] [address] [id number] [place] [address] Jul, [facility] [place] [facility] [address] [id number] [place] [address] Jul, [facility] [place] [facility] [address] [id number] [place] [address] Jul, [facility] [place] [facility] [address] [id number] [place] [address] Jul, [facility] [place] [facility] [address] [id number] [place] [address] May, [facility] [place] [facility] [address] [id number] [place] [address] May, [facility] [place] [facility] [address] [id number] [place] [address] Mar, [facility] [place] [facility] [address] [id number] [place] [address] Mar, [facility] [place] [facility] [address] [id number] [place] [address] Mar, [facility] [place] [facility] [address] [id number] [place] [address] Mar, [facility] [address] [id number] [place] [address] Mar, [facility] [place] [facility] [address] [id number] [place] [address] January, [facility] [place] [facility] [address] [id number] [place] [address] January, [facility] [place] [facility] [address] [id number] [place] [address] January, [facility] [address] [id number] [place] [address] Dec, [facility] [place] [facility] [address] [id number] [place] [address] Dec, [facility] [address] [id number] [place] [address] Nov, [facility] [place] [facility] [address] [id number] [place] [address] Nov, [facility] [place] [facility] [address] [id number] [place] [address] Nov, [facility] [place] [facility] [address] [id number] [place] [address] Nov, [facility] [place] [facility] [address] [id number] [place] [address] Nov, [facility] [place] [facility] [address] [id number] [place] [address] Nov, [facility] [place] [facility] [address] [id number] [place] [address] Aug, [facility] [place] [facility] [address] [id number] [place] [address] Aug, [facility] [place] [facility] [address] [id number] [place] [address] Aug, [facility] [place] [facility] [address] [id number] [place] [address] Aug, [facility] [address] [id number] [place] [address] Aug, [facility] [place] [facility] [address] [id number] [place] [address] Aug, [facility] [place] [facility] [address] [id number] [place] [address] Aug, [facility] [place] [facility] [address] [id number] [place] [address] Aug, [facility] [place] [facility] [id number] [place] [address], [place] [address] Aug, [facility] [place] [facility] [address] [id number] [place] [address] Aug, [facility] [place] [facility] [address] [id number] [place] [address] Aug, [facility] [place] [facility] [address] [id number] [place] [address] Aug, [facility] [place] [facility] [address] [id number] [place] [address] Aug, [facility] [place] [facility] [address] [facility] [id number] [place] [address] Aug, [facility] [place] [facility] [address] [id number] [place] [address] Jul, [facility] [place] [facility] [address] [id number] [place] [address] Jul, [facility] [place] [facility] [address] [id number] [place] [address] 2012 [facility] [place] [facility] [address] [id number] [place] [address] 19 Jun, 2012 [facility] [place] [facility] [address] [id number] [place] [address] Jun, [facility] [address] [facility] [id number] [place] [address] Mar, [facility] [address] [facility] [id number] [place] [address] Jul, IMMUNIZATIONS No Known Immunizations SOCIAL HISTORY Never Assessed REASON FOR VISIT EMR-[facility] PLAN OF CARE VITAL SIGNS MEDICATIONS Unknown Medications RESULTS No Results PROCEDURES No Known procedures INSTRUCTIONS MEDICATIONS ADMINISTERED No Known Medications
--- OUTSIDE RECORDS SUMMARY | 2019-03-03 23:08 | XMS REPORT ---
Author Author Migration, Doctor Organization [facility] Address Unknown Phone Unavailable Care Team Providers Care Low Raw Sugar Cutter Name Role Phone Migration, Doctor Unavailable Unavailable PROBLEMS Type Condition ICD9-CM Code KCS85-PI Code Onset Dates Condition Status SNOMED Code Problem examination or test, positive result V72.42 Active 816518009 Problem Abdominal pain, periumbilic 789.05 Active 604781956 Problem Abdominal pain, other specified site 789.09 Active 09718874 Problem Dysuria 788.1 Active 87990105 Problem Urinary frequency 788.41 Active 909283908 Problem Rash and other nonspecific skin eruption 782.1 Active 430646442 Problem Lumbago 724.2 Active 353770373 Problem Unspecified backache 724.5 Active 762956967 Problem Posttraumatic stress disorder 309.81 Active 56432162 Problem Polydipsia 783.5 Active 20670652 Problem Obesity, unspecified 278.00 Active 525214700 Problem Cough 786.2 Active 82168823 Problem Irregular menstrual cycle 626.4 Active 84591022 Problem Unspecified symptom associated with female genital organs 625.9 Active 667633577 Problem Urinary tract infection, site not specified 599.0 Active 76390417 Problem Anal or rectal pain 569.42 Active 60891262 ALLERGIES No Information ENCOUNTERS Encounter Location Date Diagnosis [facility] [id number] [place] [address] Dec, [facility] [id number] [place] [address] Dec, [facility] [id number] [place] [address] Aug, [facility] [id number] [place] [address] Aug, [facility] [id number] [place] [address] Aug, [facility] [place] [facility] [address] [id number] [place] [address] Aug, [facility] [place] [facility] [address] [id number] [place] [address] Aug, [facility] [place] [facility] [address] [id number] [place] [address] Aug, [facility] [place] [facility] [address] [id number] [place] [address] Aug, [facility] [place] [facility] [address] [id number] [place] [address] Aug, [facility] [place] [facility] [address] [id number] [place] [address] Aug, [facility] [place] [facility] [address] [id number] [place] [address] Jul, [facility] [place] [facility] [address] [id number] [place] [address] Jul, [facility] [place] [facility] [address] [id number] [place] [address] Jul, [facility] [place] [facility] [address] [id number] [place] [address] Jul, [facility] [place] [facility] [address] [id number] [place] [address] May, [facility] [place] [facility] [address] [id number] [place] [address] May, [facility] [place] [facility] [address] [id number] [place] [address] Mar, [facility] [place] [facility] [address] [id number] [place] [address] Mar, [facility] [place] [facility] [address] [id number] [place] [address] Mar, [facility] [place] [facility] [address] [id number] [place] [address] Mar, [facility] [address] [id number] [place] [address] Mar, [facility] [place] [facility] [address] [id number] [place] [address] January, [facility] [place] [facility] [address] [id number] [place] [address] January, [facility] [place] [facility] [address] [id number] [place] [address] January, [facility] [address] [id number] [place] [address] Dec, [facility] [place] [facility] [address] [id number] [place] [address] Dec, [facility] [address] [id number] [place] [address] Nov, [facility] [place] [facility] [address] [id number] [place] [address] Nov, [facility] [place] [facility] [address] [id number] [place] [address] Nov, [facility] [place] [facility] [address] [id number] [place] [address] Nov, [facility] [place] [facility] [address] [id number] [place] [address] Nov, [facility] [place] [facility] [address] [id number] [place] [address] Nov, [facility] [place] [facility] [address] [id number] [place] [address] Aug, [facility] [place] [facility] [address] [id number] [place] [address] Aug, [facility] [place] [facility] [address] [id number] [place] [address] Aug, [facility] [place] [facility] [address] [id number] [place] [address] Aug, [facility] [address] [id number] [place] [address] Aug, [facility] [place] [facility] [address] [id number] [place] [address] Aug, [facility] [place] [facility] [address] [id number] [place] [address] Aug, [facility] [place] [facility] [address] [id number] [place] [address] Aug, [facility] [place] [facility] [address] [id number] [place] [address], [place] [address] Aug, [facility] [place] [facility] [address] [id number] [place] [address] Aug, [facility] [place] [facility] [address] [id number] [place] [address] Aug, [facility] [place] [facility] [address] [id number] [place] [address] Aug, [facility] [place] [facility] [address] [id number] [place] [address] Aug, [facility] [place] [facility] [address] [facility] [id number] [place] [address] Aug, [facility] [place] [facility] [address] [id number] [place] [address] Jul, [facility] [place] [facility] [address] [id number] [place] [address] Jul, [facility] [place] [facility] [address] [id number] [place] [address] 2012 [facility] [place] [facility] [address] [id number] [place] [address] 19 Jun, 2012 [facility] [place] [facility] [address] [id number] [place] [address] Jun, [facility] [address] [facility] [id number] [place] [address] Mar, [facility] [address] [facility] [id number] [place] [address] Jul, IMMUNIZATIONS No Known Immunizations SOCIAL HISTORY Never Assessed REASON FOR VISIT EMR-[facility] [place] PLAN OF CARE VITAL SIGNS MEDICATIONS Unknown Medications RESULTS No Results PROCEDURES No Known procedures INSTRUCTIONS MEDICATIONS ADMINISTERED No Known Medications
--- OUTSIDE RECORDS SUMMARY | 2019-03-03 23:08 | XMS REPORT ---
Author Author Migration, Doctor Organization [facility] Address Unknown Phone Unavailable Care Team Providers Care Steamboat Pilot Name Role Phone Migration, Doctor Unavailable Unavailable PROBLEMS Type Condition ICD9-CM Code ILZ69-SG Code Onset Dates Condition Status SNOMED Code Problem examination or test, positive result V72.42 Active 019128925 Problem Abdominal pain, periumbilic 789.05 Active 228504396 Problem Abdominal pain, other specified site 789.09 Active 27856069 Problem Dysuria 788.1 Active 67211271 Problem Urinary frequency 788.41 Active 216473727 Problem Rash and other nonspecific skin eruption 782.1 Active 376104271 Problem Lumbago 724.2 Active 305165021 Problem Unspecified backache 724.5 Active 752894279 Problem Posttraumatic stress disorder 309.81 Active 99791936 Problem Polydipsia 783.5 Active 84934268 Problem Obesity, unspecified 278.00 Active 498720075 Problem Cough 786.2 Active 93159567 Problem Irregular menstrual cycle 626.4 Active 50005121 Problem Unspecified symptom associated with female genital organs 625.9 Active 895912397 Problem Urinary tract infection, site not specified 599.0 Active 61696854 Problem Anal or rectal pain 569.42 Active 16370795 ALLERGIES No Information ENCOUNTERS Encounter Location Date Diagnosis [facility] [id number] [place] [address] Dec, [facility] [id number] [place] [address] Dec, [facility] [id number] [place] [address] Aug, [facility] [id number] [place] [address] Aug, [facility] [id number] [place] [address] Aug, [facility] [place] [facility] [address] [id number] [place] [address] Aug, [facility] [place] [facility] [address] [id number] [place] [address] Aug, [facility] [place] [facility] [address] [id number] [place] [address] Aug, [facility] [place] [facility] [address] [id number] [place] [address] Aug, [facility] [place] [facility] [address] [id number] [place] [address] Aug, [facility] [place] [facility] [address] [id number] [place] [address] Aug, [facility] [place] [facility] [address] [id number] [place] [address] Jul, [facility] [place] [facility] [address] [id number] [place] [address] Jul, [facility] [place] [facility] [address] [id number] [place] [address] Jul, [facility] [place] [facility] [address] [id number] [place] [address] Jul, [facility] [place] [facility] [address] [id number] [place] [address] May, [facility] [place] [facility] [address] [id number] [place] [address] May, [facility] [place] [facility] [address] [id number] [place] [address] Mar, [facility] [place] [facility] [address] [id number] [place] [address] Mar, [facility] [place] [facility] [address] [id number] [place] [address] Mar, [facility] [place] [facility] [address] [id number] [place] [address] Mar, [facility] [address] [id number] [place] [address] Mar, [facility] [place] [facility] [address] [id number] [place] [address] January, [facility] [place] [facility] [address] [id number] [place] [address] January, [facility] [place] [facility] [address] [id number] [place] [address] January, [facility] [address] [id number] [place] [address] Dec, [facility] [place] [facility] [address] [id number] [place] [address] Dec, [facility] [address] [id number] [place] [address] Nov, [facility] [place] [facility] [address] [id number] [place] [address] Nov, [facility] [place] [facility] [address] [id number] [place] [address] Nov, [facility] [place] [facility] [address] [id number] [place] [address] Nov, [facility] [place] [facility] [address] [id number] [place] [address] Nov, [facility] [place] [facility] [address] [id number] [place] [address] Nov, [facility] [place] [facility] [address] [id number] [place] [address] Aug, [facility] [place] [facility] [address] [id number] [place] [address] Aug, [facility] [place] [facility] [address] [id number] [place] [address] Aug, [facility] [place] [facility] [address] [id number] [place] [address] Aug, [facility] [address] [id number] [place] [address] Aug, [facility] [place] [facility] [address] [id number] [place] [address] Aug, [facility] [place] [facility] [address] [id number] [place] [address] Aug, [facility] [place] [facility] [address] [id number] [place] [address] Aug, [facility] [place] [facility] [id number] [place] [address], [place] [address] Aug, [facility] [place] [facility] [address] [id number] [place] [address] Aug, [facility] [place] [facility] [address] [id number] [place] [address] Aug, [facility] [place] [facility] [address] [id number] [place] [address] Aug, [facility] [place] [facility] [address] [id number] [place] [address] Aug, [facility] [place] [facility] [address] [facility] [id number] [place] [address] Aug, [facility] [place] [facility] [address] [id number] [place] [address] Jul, [facility] [place] [facility] [address] [id number] [place] [address] Jul, [facility] [place] [facility] [address] [id number] [place] [address] 2012 [facility] [place] [facility] [address] [id number] [place] [address] 19 Jun, 2012 [facility] [place] [facility] [address] [id number] [place] [address] Jun, [facility] [address] [facility] [id number] [place] [address] Mar, [facility] [address] [facility] [id number] [place] [address] Jul, IMMUNIZATIONS No Known Immunizations SOCIAL HISTORY Never Assessed REASON FOR VISIT EMR-[facility] [place] PLAN OF CARE VITAL SIGNS MEDICATIONS Unknown Medications RESULTS No Results PROCEDURES No Known procedures INSTRUCTIONS MEDICATIONS ADMINISTERED No Known Medications
--- OUTSIDE RECORDS SUMMARY | 2019-03-03 23:08 | XMS REPORT ---
Author Author Migration, Doctor Organization [facility] Address Unknown Phone Unavailable Care Team Providers Care Color Printer Operator Name Role Phone Migration, Doctor Unavailable Unavailable PROBLEMS Type Condition ICD9-CM Code PKK90-JP Code Onset Dates Condition Status SNOMED Code Problem examination or test, positive result V72.42 Active 642322465 Problem Abdominal pain, periumbilic 789.05 Active 252474691 Problem Abdominal pain, other specified site 789.09 Active 45338653 Problem Dysuria 788.1 Active 75812121 Problem Urinary frequency 788.41 Active 945102267 Problem Rash and other nonspecific skin eruption 782.1 Active 189897690 Problem Lumbago 724.2 Active 642804030 Problem Unspecified backache 724.5 Active 972078653 Problem Posttraumatic stress disorder 309.81 Active 62674775 Problem Polydipsia 783.5 Active 32868034 Problem Obesity, unspecified 278.00 Active 627116943 Problem Cough 786.2 Active 40333996 Problem Irregular menstrual cycle 626.4 Active 80830064 Problem Unspecified symptom associated with female genital organs 625.9 Active 696034860 Problem Urinary tract infection, site not specified 599.0 Active 08738723 Problem Anal or rectal pain 569.42 Active 85299636 ALLERGIES No Information ENCOUNTERS Encounter Location Date Diagnosis [facility] [address] [place] [address] Dec, [facility] [id number] [place] [address] Dec, [facility] [id number] [place] [address] Aug, [facility] [id number] [place] [address] Aug, [facility] [address] [place] [address] Aug, [facility] [place] [facility] [address] [id number] [place] [address] Aug, [facility] [place] [facility] [address] [id number] [place] [address] Aug, [facility] [place] [facility] [address] [id number] [place] [address] Aug, [facility] [place] [facility] [address] [id number] [place] [address] Aug, [facility] [place] [facility] [address] [id number] [place] [address] Aug, [facility] [place] [facility] [address] [id number] [place] [address] Aug, [facility] [place] [facility] [address] [id number] [place] [address] Jul, [facility] [place] [facility] [address] [id number] [place] [address] Jul, [facility] [place] [facility] [address] [id number] [place] [address] Jul, [facility] [place] [facility] [address] [id number] [place] [address] Jul, [facility] [place] [facility] [address] [id number] [place] [address] May, [facility] [place] [facility] [address] [id number] [place] [address] May, [facility] [place] [facility] [address] [id number] [place] [address] Mar, [facility] [place] [facility] [address] [id number] [place] [address] Mar, [facility] [place] [facility] [address] [id number] [place] [address] Mar, [facility] [place] [facility] [address] [id number] [place] [address] Mar, [facility] [address] [id number] [place] [address] Mar, [facility] [place] [facility] [address] [id number] [place] [address] January, [facility] [place] [facility] [address] [id number] [place] [address] January, [facility] [place] [facility] [address] [id number] [place] [address] January, [facility] [address] [id number] [place] [address] Dec, [facility] [place] [facility] [address] [id number] [place] [address] Dec, [facility] [address] [id number] [place] [address] Nov, [facility] [place] [facility] [address] [id number] [place] [address] Nov, [facility] [place] [facility] [address] [id number] [place] [address] Nov, [facility] [place] [facility] [address] [id number] [place] [address] Nov, [facility] [place] [facility] [address] [id number] [place] [address] Nov, [facility] [place] [facility] [address] [id number] [place] [address] Nov, [facility] [place] [facility] [address] [id number] [place] [address] Aug, [facility] [place] [facility] [address] [id number] [place] [address] Aug, [facility] [place] [facility] [address] [id number] [place] [address] Aug, [facility] [place] [facility] [address] [id number] [place] [address] Aug, [facility] [address] [id number] [place] [address] Aug, [facility] [place] [facility] [address] [id number] [place] [address] Aug, [facility] [place] [facility] [address] [id number] [place] [address] Aug, [facility] [place] [facility] [address] [id number] [place] [address] Aug, [facility] [place] [facility] [address] [id number] [place] [address], [place] [address] Aug, [facility] [place] [facility] [address] [id number] [place] [address] Aug, [facility] [place] [facility] [address] [id number] [place] [address] Aug, [facility] [place] [facility] [address] [id number] [place] [address] Aug, [facility] [place] [facility] [address] [id number] [place] [address] Aug, [facility] [place] [facility] [address] [facility] [id number] [place] [address] Aug, [facility] [place] [facility] [address] [id number] [place] [address] Jul, [facility] [place] [facility] [address] [id number] [place] [address] Jul, [facility] [place] [facility] [address] [id number] [place] [address] 2012 [facility] [place] [facility] [address] [id number] [place] [address] 19 Jun, 2012 [facility] [place] [facility] [address] [id number] [place] [address] Jun, [facility] [address] [facility] [id number] [place] [address] Mar, [facility] [address] [facility] [id number] [place] [address] Jul, IMMUNIZATIONS No Known Immunizations SOCIAL HISTORY Never Assessed REASON FOR VISIT EMR-[facility] [place] PLAN OF CARE VITAL SIGNS MEDICATIONS Medication Instructions Dosage Frequency Start Date End Date Duration Status Cipro 500 mg 1 tablet by Oral route every 12 hours for 7 day(s) Jul, Active Pyridium 200 mg 1 tablet by Oral route 3 times per day for 3 day(s) Take witih meals for bladder pain Jul, Active Nitrofurantoin Macrocrystal 100 mg 1 capsule by Oral route 2 times per day for 10 day(s) Nov, Active Vicoprofen 7.5-200 mg take 1 tablet by oral route every 6 hours as needed for pain not to exceed 5 tablets in 24hrs PRN Aug, Active Atarax 25 mg 1 tablet by Oral route every 6 hours PRN Aug, Active RESULTS No Results PROCEDURES No Known procedures INSTRUCTIONS MEDICATIONS ADMINISTERED No Known Medications
--- OUTSIDE RECORDS SUMMARY | 2019-03-03 23:08 | XMS REPORT ---
Author Author Migration, Doctor Organization [facility] Address Unknown Phone Unavailable Care Team Providers Care Repair Department Manager Name Role Phone Migration, Doctor Unavailable Unavailable PROBLEMS Type Condition ICD9-CM Code [id number] Code Onset Dates Condition Status SNOMED Code Problem examination or test, positive result V72.42 Active 550768841 Problem Abdominal pain, periumbilic 789.05 Active 380527202 Problem Abdominal pain, other specified site 789.09 Active 70862266 Problem Dysuria 788.1 Active 81168274 Problem Urinary frequency 788.41 Active 722640848 Problem Rash and other nonspecific skin eruption 782.1 Active 405658047 Problem Lumbago 724.2 Active 490435735 Problem Unspecified backache 724.5 Active 419235040 Problem Posttraumatic stress disorder 309.81 Active 12749099 Problem Polydipsia 783.5 Active 85970535 Problem Obesity, unspecified 278.00 Active 537450894 Problem Cough 786.2 Active 00525534 Problem Irregular menstrual cycle 626.4 Active 41528926 Problem Unspecified symptom associated with female genital organs 625.9 Active 958040261 Problem Urinary tract infection, site not specified 599.0 Active 27046042 Problem Anal or rectal pain 569.42 Active 82940284 ALLERGIES No Information ENCOUNTERS Encounter Location Date Diagnosis [facility] [id number] [place] [id number] Dec, [facility] [id number] [place] [address] Dec, [facility] [id number] [place] [address] Aug, [facility] [id number] [place] [address] Aug, [facility] [address] [place] [address] Aug, [facility] [place] [facility] [address] [id number] [place] [address] Aug, [facility] [place] [facility] [address] [id number] [place] [address] Aug, [facility] [place] [facility] [address] [id number] [place] [address] Aug, [facility] [place] [facility] [address] [id number] [place] [address] Aug, [facility] [place] [facility] [address] [id number] [place] [address] Aug, [facility] [place] [facility] [address] [id number] [place] [address] Aug, [facility] [place] [facility] [address] [id number] [place] [address] Jul, [facility] [place] [facility] [address] [id number] [place] [address] Jul, [facility] [place] [facility] [address] [id number] [place] [address] Jul, [facility] [place] [facility] [address] [id number] [place] [address] Jul, [facility] [place] [facility] [address] [id number] [place] [address] May, [facility] [place] [facility] [address] [id number] [place] [address] May, [facility] [place] [facility] [address] [id number] [place] [address] Mar, [facility] [place] [facility] [address] [id number] [place] [address] Mar, [facility] [place] [facility] [address] [id number] [place] [address] Mar, [facility] [place] [facility] [address] [id number] [place] [address] Mar, [facility] [address] [id number] [place] [address] Mar, [facility] [place] [facility] [address] [id number] [place] [address] January, [facility] [place] [facility] [address] [id number] [place] [address] January, [facility] [place] [facility] [address] [id number] [place] [address] January, [facility] [address] [id number] [place] [address] Dec, [facility] [place] [facility] [address] [id number] [place] [address] Dec, [facility] [address] [id number] [place] [address] Nov, [facility] [place] [facility] [address] [id number] [place] [address] Nov, [facility] [place] [facility] [address] [id number] [place] [address] Nov, [facility] [place] [facility] [address] [id number] [place] [address] Nov, [facility] [place] [facility] [address] [id number] [place] [address] Nov, [facility] [place] [facility] [address] [id number] [place] [address] Nov, [facility] [place] [facility] [address] [id number] [place] [address] Aug, [facility] [place] [facility] [address] [id number] [place] [address] Aug, [facility] [place] [facility] [address] [id number] [place] [address] Aug, [facility] [place] [facility] [address] [id number] [place] [address] Aug, [facility] [address] [id number] [place] [address] Aug, [facility] [place] [facility] [address] [id number] [place] [address] Aug, [facility] [place] [facility] [address] [id number] [place] [address] Aug, [facility] [place] [facility] [address] [id number] [place] [address] Aug, [facility] [place] [facility] [id number] [place] [address], [place] [address] Aug, [facility] [place] [facility] [address] [id number] [place] [address] Aug, [facility] [place] [facility] [address] [id number] [place] [address] Aug, [facility] [place] [facility] [address] [id number] [place] [address] Aug, [facility] [place] [facility] [address] [id number] [place] [address] Aug, [facility] [place] [facility] [address] [facility] [id number] [place] [address] Aug, [facility] [place] [facility] [address] [id number] [place] [address] Jul, [facility] [place] [facility] [address] [id number] [place] [address] Jul, [facility] [place] [facility] [address] [id number] [place] [address] 2012 [facility] [place] [facility] [address] [id number] [place] [address] 19 Jun, 2012 [facility] [place] [facility] [address] [id number] [place] [address] Jun, [facility] [address] [facility] [id number] [place] [address] Mar, [facility] [address] [facility] [id number] [place] [address] Jul, IMMUNIZATIONS No Known Immunizations SOCIAL HISTORY Never Assessed REASON FOR VISIT EMR-[facility] PLAN OF CARE VITAL SIGNS MEDICATIONS Unknown Medications RESULTS No Results PROCEDURES No Known procedures INSTRUCTIONS MEDICATIONS ADMINISTERED No Known Medications
--- OUTSIDE RECORDS SUMMARY | 2019-03-03 23:10 | XMS REPORT | Continuity of Care Document ---
Author Author [facility] Organization [facility] Address Unknown Phone Unavailable Care Team Providers Care Linter Tender Name Role Phone MEIR BAKARI Mario MOSQUEDA PP Insurance Providers Payer Name Policy Number Subscriber Name Relationship Self Pay Uma Lemus 01 Self / Same As Patient Advance Directives Directive Response Recorded Date Advance Directives N 07/15/13 12:45am Health Care Power of Process Safety Specialist N 07/15/13 12:45am Organ Donor N 07/15/13 12:45am Problems No Known Problems or Medical conditions. Family History History Response Recorded Date/Time Hx Family Cancer Y 07/15/13 12:51am Hx Family Breast Cancer Y 07/15/13 12:51am Hx Family Lung Cancer Y 07/15/13 12:51am Hx Family Colorectal Cancer N 07/15/13 12:51am Hx Family Cardiac Disorders N 07/15/13 12:51am Hx Family Stroke Y 07/15/13 12:51am Hx Family Hypertension Y 07/15/13 12:51am Hx Family Myocardial Infarction Y 07/15/13 12:51am Hx Family Cystic Fibrosis Y 07/15/13 12:51am Social History History Response Recorded Date/Time Alcohol Use Denies Use 07/15/13 12:47am Recreational Drug Use N 07/15/13 12:47am Recent Foreign Travel N 07/15/13 12:47am Recent Infectious Disease Exposure N 07/15/13 12:47am Hospitalization with Isolation Denies 07/16/13 10:21pm Sexually Transmitted Disease N 07/15/13 12:47am HIV/AIDS N 07/15/13 12:47am Allergies, Adverse Reactions, Alerts Allergen Type Severity Reaction Last Updated hydromorphone HCl Adverse Reaction Mild ITCHING 07/15/13 Medications Medication Dose Units Route Sig Qty Days Naproxen (Naprosyn) 1 Each PO BID 14 Ondansetron HCl (Zofran) 1 Tab PO Q6H 7 Tramadol Hcl 50 Mg PO Q6H 7 Phenazopyridine HCl (Pyridium) 1 Each PO TID 6 Ciprofloxacin (Cipro) 1 Tab PO BID 10 [zoloft] [flexeril] Penicillin G Potassium (Pen-Vee K 250 Mg) 1 Tab PO QID 30 Immunizations Name Given Type influenza, split (incl. purified surface antigen) 07/16/13 A pneumococcal polysaccharide PPV23 07/16/13 A influenza, split (incl. purified surface antigen) 07/16/13 A pneumococcal polysaccharide PPV23 07/16/13 A Response Recorded Date/Time Status not known Unknown Results Test Date Result Interp. Ref. Range Alanine Aminotransferase (ALT/SGPT) November 24, 2012 10:20pm 39 U/L N 30-65 Albumin November 24, 2012 10:20pm 3.8 G/DL N 3.4-5.0 Alkaline Phosphatase November 24, 2012 10:20pm 96 U/L N 50-136 Amylase Level November 24, 2012 10:20pm 41 U/L N 25-115 Aspartate Amino Transf (AST/SGOT) November 24, 2012 10:20pm 17 U/L N 15-37 BUN/Creatinine Ratio July 14, 2013 9:30pm 12 - Band Neutrophils November 13, 2007 5:50pm 0 % - Basophils # (Auto) July 14, 2013 9:30pm 0.0 10^3/uL N 0.0-0.1 Basophils (%) (Auto) July 14, 2013 9:30pm 0 % N 0-10 Blood Urea Nitrogen July 14, 2013 9:30pm 11 MG/DL N 7-18 C-Reactive Protein July 14, 2013 9:30pm < 0.2 MG/DL L 0.2-0.9 Calcium Level July 14, 2013 9:30pm 8.9 MG/DL N 8.5-10.1 Carbon Dioxide Level July 14, 2013 9:30pm 25 MMOL/L N 21-32 Chlamydia DNA Probe November 08, 2011 7:25pm NEG - Chlamydia/GC DNA Probe Source November 08, 2011 7:25pm CERVIX - Chloride Level July 14, 2013 9:30pm 103 MMOL/L N 101-110 Creatinine July 14, 2013 9:30pm 0.9 MG/DL N 0.6-1.3 Eosinophils # (Auto) July 14, 2013 9:30pm 0.1 10^3/uL N 0.0-0.3 Eosinophils % (Manual) November 13, 2007 5:50pm 0 % - Eosinophils (%) (Auto) July 14, 2013 9:30pm 1 % N 0-10 Erythrocyte Sedimentation Rate September 01, 2011 1:00pm 8 MM/HR N 0-20 Free Thyroxine August 25, 2008 4:05pm 0.85 NG/DL N 0.59-1.17 Glucose Level July 14, 2013 9:30pm 111 MG/DL H 74-106 Group A Streptococcus Screen February 23, 2012 12:53pm POSITIVE H - Hematocrit July 14, 2013 9:30pm 41 % N 35-52 Hemoglobin July 14, 2013 9:30pm 14.3 G/DL N 11.5-16.0 Human Chorionic Gonadotropin, Quant November 08, 2011 6:57pm < 6 MIU/ML -6 Lipase November 24, 2012 10:20pm 119 U/L N 73-393 Lymphocytes # (Auto) July 14, 2013 9:30pm 2.2 X 10^3 N 1.0-4.0 Lymphocytes % (Manual) November 13, 2007 5:50pm 15 % - Lymphocytes (%) (Auto) July 14, 2013 9:30pm 19 % N 12-44 Magnesium Level January 06, 2012 6:25am 2.0 MG/DL N 1.8-2.4 Mean Corpuscular Hemoglobin July 14, 2013 9:30pm 31 PG N 25-34 Mean Corpuscular Hemoglobin Concent July 14, 2013 9:30pm 35 G/DL N 32-36 Mean Corpuscular Volume July 14, 2013 9:30pm 88 FL N 80-99 Mean Platelet Volume July 14, 2013 9:30pm 9.4 FL N 7.4-10.4 Monocytes # (Auto) July 14, 2013 9:30pm 0.6 X 10^3 N 0.0-1.0 Monocytes % (Manual) November 13, 2007 5:50pm 6 % - Monocytes (%) (Auto) July 14, 2013 9:30pm 5 % N 0-12 Neisseria gonorrhoeae DNA Probe November 08, 2011 7:25pm NEG - Neutrophils # (Auto) July 14, 2013 9:30pm 9.0 X 10^3 H 1.8-7.8 Neutrophils % (Manual) November 13, 2007 5:50pm 79 % - Neutrophils (%) (Auto) July 14, 2013 9:30pm 75 % N 42-75 Platelet Count July 14, 2013 9:30pm 297 10^3/uL N 130-400 Potassium Level July 14, 2013 9:30pm 3.5 MMOL/L L 3.6-5.0 Red Blood Count July 14, 2013 9:30pm 4.65 10^6/uL N 4.35-5.85 Red Cell Distribution Width July 14, 2013 9:30pm 12.1 % N 10.0-14.5 Serum Test, Qualitative August 27, 2012 1:10am NEGATIVE - Sodium Level July 14, 2013 9:30pm 137 MMOL/L N 135-145 Thyroid Stimulating Hormone (TSH) August 25, 2008 4:05pm 2.70 UIU/ML N 0.34-5.60 Total Bilirubin November 24, 2012 10:20pm 0.7 MG/DL N 0.0-1.0 Total Creatine Kinase August 27, 2012 11:40pm 77 U/L N 1-159 Total Protein November 24, 2012 10:20pm 7.9 G/DL N 6.4-8.2 Ur Tricyclic Antidepressants Screen November 24, 2012 9:00pm NEGATIVE - Urine Amphetamines Screen November 24, 2012 9:00pm NEGATIVE - Urine Bacteria July 14, 2013 9:25pm TRACE /HPF - Urine Barbiturates Screen November 24, 2012 9:00pm NEGATIVE - Urine Benzodiazepines Screen November 24, 2012 9:00pm NEGATIVE - Urine Bilirubin July 14, 2013 9:25pm NEGATIVE - Urine Casts July 14, 2013 9:25pm NONE /LPF - Urine Clarity July 14, 2013 9:25pm CLEAR - Urine Cocaine Screen November 24, 2012 9:00pm NEGATIVE - Urine Color July 14, 2013 9:25pm YELLOW - Urine Crystals July 14, 2013 9:25pm NONE /LPF - Urine Culture Indicated July 14, 2013 9:25pm NO - Urine Glucose (UA) July 14, 2013 9:25pm NEGATIVE - Urine Ketones July 14, 2013 9:25pm NEGATIVE - Urine Leukocyte Esterase July 14, 2013 9:25pm NEGATIVE - Urine Methamphetamines Screen November 24, 2012 9:00pm NEGATIVE - Urine Mucus July 14, 2013 9:25pm NEGATIVE /LPF - Urine Nitrate October 17, 2007 4:55pm Negative - Urine Nitrite July 14, 2013 9:25pm NEGATIVE - Urine Opiates Screen November 24, 2012 9:00pm NEGATIVE - Urine Other July 14, 2013 9:25pm FEW SPERM /HPF H - Urine Phencyclidine Screen November 24, 2012 9:00pm NEGATIVE - Urine Test April 06, 2008 2:25pm Negative - Urine Propoxyphene Screen November 24, 2012 9:00pm NEGATIVE - Urine Protein July 14, 2013 9:25pm NEGATIVE - Urine RBC July 14, 2013 9:25pm 0-2 /HPF - Urine Specific Barron July 14, 2013 9:25pm 1.015 L - Urine Squamous Epithelial Cells July 14, 2013 9:25pm 10-25 /HPF H - Urine Urobilinogen July 14, 2013 9:25pm NORMAL MG/DL - Urine WBC July 14, 2013 9:25pm 0-2 /HPF - Urine pH July 14, 2013 9:25pm 6 - White Blood Count July 14, 2013 9:30pm 11.9 10^3/uL H 4.3-11.0 Serum Alcohol August 27, 2012 11:40pm < 5 MG/DL -5 Glucometer November 24, 2012 9:05pm 105 MG/DL N 70-110 Lab Scanned Report January 04, 2012 6:40pm LAB Reports [id number] - Estimat Glomerular Filtration Rate July 14, 2013 9:30pm > 60 - Urine Oxycodone Screen November 24, 2012 9:00pm NEGATIVE - Blood Morphology Comment November 13, 2007 5:50pm Normal - Urine Methadone Screen November 24, 2012 9:00pm NEGATIVE - Urine Cannabinoids Screen November 24, 2012 9:00pm NEGATIVE - Urine Buprenorphine November 24, 2012 9:00pm NEGATIVE - Urine RBC (Auto) July 14, 2013 9:25pm 1+ H - Procedures Procedure Code Date LOW CERVICAL 74.1 11/14/07 VENOUS CATHETERIZATION NEC 38.93 01/04/12 Blood Culture 01/05/12 Genital Culture 11/08/11 Urine Culture 11/24/12 Encounters Encounter Location Date/Time Discharged Inpatient [facility] 07/14/13 11:50pm Departed Emergency Room [facility] 11/24/12 8:51pm
--- OUTSIDE RECORDS SUMMARY | 2019-03-03 23:12 | XMS REPORT | Continuity of Care Document ---
Author Organization Unknown Address Unknown Allergies Active Description Code Type Severity Reaction Onset Reported/Identified Relationship to Patient Clinical Status Yes CYCLOBENZAPRINE UNKNOWN GI PROBLEMS - NAUSEA Yes NO KNOWN DRUG ALLERGIES UNKNOWN NO KNOWN DRUG ALLERG Yes hydromorphone HCl [id number] Drug Allergy Mild ITCHING 07/15/2013 Yes No Known Drug Allergies [id number] Drug Allergy Unknown N/A 10/19/2016 Medications Medication Packaging Start Date Stop Date Route Dosage Sig LACTATED RINGERS 1000CC IV BAG INJ ml 02/19/2018 02/20/2018 CONTINUOUSEVERY 0 Hour ONDANSETRON VIAL INJ 4 MG/2CC (ZOFRAN 2CC VIAL) MG 02/21/2018 02/21/2018 PRN ONCE Hydromorphone inj 2mg/cc vial (Dilaudid) MG 02/21/2018 02/21/2018 PRN ONCE LACTATED RINGERS 1000CC IV BAG INJ ml 02/21/2018 02/21/2018 ONCE&1925 LACTATED RINGERS 1000CC IV BAG INJ ml 02/21/2018 02/21/2018 ONCE&0 Hydromorphone inj 2mg/cc vial (Dilaudid) MG 02/21/2018 02/21/2018 ONCE&2112 TRAMADOL TAB 50 MG (ULTRAM) MG 02/21/2018 02/21/2018 ONCE&211 LACTATED RINGERS 1000CC IV BAG INJ ml 03/05/2018 03/12/2018 CONTINUOUSEVERY 0 Hour Problems Date Dx Coded Attending Type Code Diagnosis Diagnosed By 01/21/2010 MUSA TA PSYD 244.9 HYPOTHYROIDISM 01/21/2010 MUSA TA PSYD 278.00 OBESITY 01/21/2010 MUSA TA PSYD V25.01 Oral Contraceptives 01/21/2010 FAYE CHANCE APRN 244.9 HYPOTHYROIDISM 01/21/2010 FAYE CHANCE APRN 278.00 Obesity 01/21/2010 REGINA CHANCE APRNIA R [...] FAYE CHANCE APRN R 244.9 HYPOTHYROIDISM 01/21/2010 REGINA CHANCE APRNIA R 278.00 Obesity 01/21/2010 REGINA CHANCE APRNIA R V25.01 Oral Contraceptives 01/21/2010 BAKARI WORLEY APRN T 244.9 HYPOTHYROIDISM 01/21/2010 BAKARI WORLEY APRN T 278.00 Obesity 01/21/2010 MEIR CORDERO BAKARI T V25.01 Oral Contraceptives 01/21/2010 SMITH DO, MICHAEL K 244.9 HYPOTHYROIDISM 01/21/2010 SMITH DO, MICHAEL K 278.00 Obesity 01/21/2010 SMITH DO, MICHAEL K V25.01 Oral Contraceptives 01/21/2010 SMITH DO, MICHAEL K 244.9 HYPOTHYROIDISM 01/21/2010 SMITH DO, MICHAEL K 278.00 Obesity 01/21/2010 SMITH DO, MICHAEL K V25.01 Oral Contraceptives 01/21/2010 MUSA TA PSYD L 244.9 HYPOTHYROIDISM 01/21/2010 MUSA TA PSYD ANN L 278.00 OBESITY 01/21/2010 MUSA TA PSYD L V25.01 Oral Contraceptives 04/26/2010 MUSA TA PSYD L V25.49 SURVEILLANCE OF OTHER CONTRACEPTIVE METHOD 04/26/2010 FAYE CHANCE APRN R V25.49 SURVEILLANCE OF OTHER CONTRACEPTIVE METHOD 04/26/2010 CHELSEA AMADOR MD V25.49 SURVEILLANCE OF OTHER CONTRACEPTIVE METHOD 04/26/2010 V25.49 SURVEILLANCE OF OTHER CONTRACEPTIVE METHOD 04/26/2010 V25.49 SURVEILLANCE OF OTHER CONTRACEPTIVE METHOD 04/26/2010 V25.49 SURVEILLANCE OF OTHER CONTRACEPTIVE METHOD 04/26/2010 FAYE CHANCE APRN V25.49 SURVEILLANCE OF OTHER CONTRACEPTIVE METHOD 04/26/2010 BAKARI WORLEY APRN V25.49 SURVEILLANCE OF OTHER CONTRACEPTIVE METHOD 04/26/2010 MICHAEL SMITH DO K V25.49 SURVEILLANCE OF OTHER CONTRACEPTIVE METHOD 04/26/2010 MICHAEL SMITH DO K V25.49 SURVEILLANCE OF OTHER CONTRACEPTIVE METHOD 04/26/2010 MUSA TA PSYD V25.49 SURVEILLANCE OF OTHER CONTRACEPTIVE METHOD 10/03/2010 MUSA TA PSYD 611.0 INFLAMMATORY DISEASE OF BREAST 10/03/2010 FAYE [...] K 611.0 INFLAMMATORY DISEASE OF BREAST 10/03/2010 MICHAEL SMITH DO 611.0 INFLAMMATORY DISEASE OF BREAST 10/03/2010 MUSA TA PSYD 611.0 INFLAMMATORY DISEASE OF BREAST 11/03/2010 Ot 521.00 11/03/2010 Ot 525.9 11/03/2010 Ot 787.03 03/01/2011 MUSA TA PSYD 278.01 OBESITY, MORBID (BMI >40) 03/01/2011 MUSA TA PSYD 780.79 fatigue 03/01/2011 FAYE CHANCE APRN 278.01 OBESITY MORBID 03/01/2011 FAYE CHANCE APRN 780.79 fatigue 03/01/2011 CHELSEA AMADOR MD 278.01 OBESITY MORBID 03/01/2011 CHELSEA AMADOR MD 780.79 fatigue 03/01/2011 278.01 OBESITY MORBID 03/01/2011 780.79 fatigue 03/01/2011 278.01 OBESITY MORBID 03/01/2011 780.79 fatigue 03/01/2011 278.01 OBESITY MORBID 03/01/2011 780.79 fatigue 03/01/2011 FAYE CHANCE APRN R 278.01 OBESITY MORBID 03/01/2011 FAYE CHANCE APRN R 780.79 fatigue 03/01/2011 MEIR GILBAKARI T 278.01 OBESITY MORBID 03/01/2011 MEIR TAVARESNBAKARI T 780.79 FATIGUE 03/01/2011 SMITH DO MICHAEL K 278.01 OBESITY MORBID 03/01/2011 SMITH DO, MICHAEL K 780.79 FATIGUE 03/01/2011 SMITH DO, MICHAEL K 278.01 OBESITY MORBID 03/01/2011 SMITH DO, MICHAEL K 780.79 FATIGUE 03/01/2011 MUSA TA PSYD 278.01 OBESITY, MORBID (BMI >40) 03/01/2011 MUSA TA PSYD 780.79 fatigue 04/25/2011 MUSA TA PSYD 616.10 VAGINITIS VULVOVAGINITIS UNSPECIFIED 04/25/2011 MUSA TA PSYD V25.09 CONTRACEPTIVE COUNSELING 04/25/2011 MUSA TA PSYD V72.31 COMPTROLLER EXAM, ROUTINE 04/25/2011 FAYE CHANCE APRN R 616.10 VAGINITIS VULVOVAGINITIS UNSPECIFIED 04/25/2011 FAYE CHANCE APRN R V25.09 CONTRACEPTIVE COUNSELING 04/25/2011 FAYE CHANCE APRN V72.31 COMPTROLLER EXAM, ROUTINE 04/25/2011 CHELSEA AMADOR MD 616.10 VAGINITIS VULVOVAGINITIS UNSPECIFIED 04/25/2011 CHELSEA AMADOR MD V25.09 CONTRACEPTIVE COUNSELING 04/25/2011 CHELSEA AMADOR MD V72.31 COMPTROLLER EXAM, ROUTINE 04/25/2011 616.10 VAGINITIS VULVOVAGINITIS UNSPECIFIED 04/25/2011 V25.09 CONTRACEPTIVE COUNSELING 04/25/2011 V72.31 COMPTROLLER EXAM, ROUTINE 04/25/2011 616.10 VAGINITIS VULVOVAGINITIS UNSPECIFIED 04/25/2011 V25.09 CONTRACEPTIVE COUNSELING 04/25/2011 V72.31 COMPTROLLER EXAM, ROUTINE 04/25/2011 616.10 VAGINITIS VULVOVAGINITIS UNSPECIFIED 04/25/2011 V25.09 CONTRACEPTIVE COUNSELING 04/25/2011 V72.31 COMPTROLLER EXAM, ROUTINE 04/25/2011 FAYE CHANCE APRN R 616.10 VAGINITIS VULVOVAGINITIS UNSPECIFIED 04/25/2011 FAYE CHANCE APRN R V25.09 CONTRACEPTIVE COUNSELING 04/25/2011 FAYE CHANCE APRN R V72.31 COMPTROLLER EXAM, ROUTINE 04/25/2011 BAKARI WORLEY APRN 616.10 VAGINITIS VULVOVAGINITIS UNSPECIFIED 04/25/2011 BAKARI WORLEY APRN V25.09 CONTRACEPTIVE COUNSELING 04/25/2011 BAKARI WORLEY APRN V72.31 COMPTROLLER EXAM, ROUTINE 04/25/2011 SMITH REBECCA ABRAHAMA K 616.10 VAGINITIS VULVOVAGINITIS UNSPECIFIED 04/25/2011 SMITH DO MICHAEL K V25.09 CONTRACEPTIVE COUNSELING 04/25/2011 LUIS ABRAHAM MICHAEL K V72.31 COMPTROLLER EXAM, ROUTINE 04/25/2011 REBECCA SMITH DOA K 616.10 VAGINITIS VULVOVAGINITIS UNSPECIFIED 04/25/2011 SMITH REBECCA ABRAHAMA K V25.09 CONTRACEPTIVE COUNSELING 04/25/2011 SMITH REBECCA ABRAHAMA K V72.31 COMPTROLLER EXAM, ROUTINE 04/25/2011 MUSA TA PSYD 616.10 VAGINITIS VULVOVAGINITIS UNSPECIFIED 04/25/2011 MUSA TA PSYD V25.09 CONTRACEPTIVE COUNSELING 04/25/2011 MUSA TA PSYD V72.31 COMPTROLLER EXAM, ROUTINE 09/01/2011 Ot 729.1 09/01/2011 Ot 729.5 11/08/2011 Ot 616.0 11/08/2011 Ot 623.8 01/07/2012 Ot 041.49 01/07/2012 Ot 564.00 01/07/2012 Ot 590.80 03/22/2012 MUSA TA PSYD 309.81 AN PTSD 03/22/2012 FAYE CHANCE APRN 309.81 AN PTSD 03/22/2012 MARJORIE MCINTYRE, CHELSEA 309.81 AN PTSD 03/22/2012 309.81 AN PTSD 03/22/2012 309.81 AN PTSD 03/22/2012 309.81 AN PTSD 03/22/2012 FAYE CHANCE APRN R 309.81 AN PTSD 03/22/2012 BAKARI WORLEY APRN 309.81 AN PTSD 03/22/2012 SMITH DO MICHAEL K 309.81 AN PTSD 03/22/2012 SMITH DO MICHAEL K 309.81 AN PTSD 03/22/2012 MUSA TA PSYD 309.81 AN PTSD 06/19/2012 MUSA TA PSYD 724.5 BACK PAIN, GENERAL 06/19/2012 MUSA TA PSYD 788.1 DYSURIA 06/19/2012 FAYE CHANCE APRN R 724.5 BACK PAIN, GENERAL 06/19/2012 FAYE CHANCE APRN R 788.1 pain during urination (dysuria) 06/19/2012 CHELSEA [...] GENERAL 06/19/2012 MUSA TA PSYD 788.1 DYSURIA 11/24/2012 Ot 276.51 11/24/2012 Ot 599.0 11/24/2012 Ot 780.4 12/02/2012 FAYE CHANCE APRN R 789.09 flank pain right 12/02/2012 CHELSEA AMADOR MD 789.09 flank pain right 12/02/2012 789.09 flank pain right 12/02/2012 789.09 flank pain right 12/02/2012 789.09 flank pain right 12/02/2012 FAYE CHANCE APRN R 789.09 flank pain right 12/02/2012 BAKARI WORLEY APRN 789.09 FLANK PAIN RIGHT 12/02/2012 MICHAEL SMITH DO 789.09 FLANK PAIN RIGHT 12/02/2012 MICHAEL SMITH DO K 789.09 FLANK PAIN RIGHT 12/03/2012 CHELSEA AMADOR MD 278.00 OBESITY 12/03/2012 CHELSEA AMADOR MD 724.2 BACK PAIN, LOWER 12/03/2012 CHELSEA AMADOR MD 789.05 ABDOMINAL PAIN PERIUMBILIC 12/03/2012 278.00 OBESITY [...] WORLEY APRN 789.05 ABDOMINAL PAIN PERIUMBILIC 12/03/2012 REBECCA SMITH DOA K 278.00 OBESITY 12/03/2012 MICHAEL SMITH DO 724.2 BACK PAIN, LOWER 12/03/2012 SMITH DO, [...] 788.41 URINARY FREQUENCY 03/03/2013 BAKARI WORLEY APRN 626.4 IRREGULAR MENSTRUAL CYCLE 03/03/2013 BAKARI WORLEY APRN 783.5 POLYDIPSIA 03/03/2013 BAKARI WORLEY APRN 788.41 URINARY FREQUENCY 03/03/2013 SMITH DO, MICHAEL [...] RECTAL PAIN 03/24/2013 625.9 PELVIC PAIN 03/24/2013 FAYE CHANCE APRN R 569.42 ANAL OR RECTAL PAIN 03/24/2013 FAYE CHANCE APRN R 625.9 PELVIC PAIN 03/24/2013 BAKARI WORLEY APRN 569.42 ANAL OR RECTAL PAIN 03/24/2013 BAKARI WORLEY APRN 625.9 PELVIC PAIN 03/24/2013 SMITH DO MICHAEL K 569.42 ANAL OR RECTAL PAIN 03/24/2013 SMITH DO, MICHAEL K 625.9 PELVIC PAIN 03/24/2013 SMITH DO, MICHAEL K 569.42 ANAL OR RECTAL PAIN 03/24/2013 SMITH DO, MICHAEL K 625.9 PELVIC PAIN 05/16/2013 786.2 COUGH 05/16/2013 FAYE CHANCE APRN R 786.2 COUGH 05/16/2013 BAKARI WORLEY APRN 786.2 COUGH 05/16/2013 SMITH DO, MICHAEL K 786.2 COUGH 05/16/2013 SMITH DO, MICHAEL K 786.2 COUGH 07/10/2013 FAYE CHANCE APRN R 599.0 URINARY TRACT INFECTION 07/10/2013 BAKARI WORLEY APRN 599.0 URINARY TRACT INFECTION 07/10/2013 SMITH DO MICHAEL K 599.0 URINARY TRACT INFECTION 07/10/2013 SMITH DO, MICHAEL K 599.0 URINARY TRACT INFECTION 08/14/2013 SMITH DO MICHAEL K 782.1 RASH AND OTHER NONSPECIFIC SKIN ERUPTION 08/14/2013 SMITH DO MICHAEL K 782.1 RASH AND OTHER NONSPECIFIC SKIN ERUPTION 08/25/2013 SMITH DO MICHAEL K V72.42 TEST POSITIVE RESULT 08/30/2013 JONATHAN WEST DO Ot 623.8 08/30/2013 JONATHAN WEST DO Ot 640.03 08/30/2013 JONATHAN WEST DO Ot 696.3 10/23/2013 PATRICIO VIEIRA DO Ot 338.29 OTHER CHRONIC PAIN 10/23/2013 PATRICIO VIEIRA DO Ot 493.90 ASTHMA, UNSPECIFIED 10/23/2013 PATRICIO VIEIRA DO Ot 642.33 TRANS HYPERTEN-ANTEPART 10/23/2013 PATRICIO VIEIRA DO Ot 648.93 OTH CURR COND-ANTEPARTUM 10/23/2013 PATRICIO VIEIRA DO Ot 784.0 HEADACHE 10/23/2013 PATRICIO VIEIRA DO Ot V12.54 PERSONAL HX OF TIA, CEREBRAL INFARCTION 12/29/2013 PATRICIO VIEIRA DO Ot 525.9 12/29/2013 PATRICIO VIEIRA DO Ot 648.93 12/29/2013 FENECH DOPATRICIO Ot 784.0 12/29/2013 FENECH DO, PATRICIO Blankenship Ot 787.02 01/26/2014 FENECH DO, PATRICIO Blankenship Ot 599.0 01/26/2014 FENECH DO, PATRCIIO Blankenship Ot 646.63 02/17/2014 FENECH DO, PATRICIO Blankenship Ot V22.1 03/31/2014 FENECH DOPATRICIO Ot 644.03 03/31/2014 FENECH DO, PATRICIO Blankenship Ot 654.23 04/24/2014 FENECH DO, PATRICIO Blankenship Ot 285.1 04/24/2014 FENECH DO, PATRICIO Blankenship Ot 648.22 04/24/2014 FENECH DO, PATRICIO Blankenship Ot 654.21 04/24/2014 MELODYECH PATRICIO ABRAHAM Ot V27.0 11/16/2015 DIPESH ALEJANDRO Ot N83.20 UNSPECIFIED OVARIAN CYSTS 11/16/2015 DIPESH ALEJANDRO Ot Z32.02 ENCOUNTER FOR TEST, RESULT NEG 01/10/2016 DIPESH ALEJANDRO Ot N39.0 URINARY TRACT INFECTION, SITE NOT SPECIF 01/10/2016 DIPESH ALEJANDRO Ot O20.0 THREATENED 01/10/2016 DIPESH ALEJANDRO Ot Z3A.01 LESS THAN 8 WEEKS GESTATION OF 01/10/2016 DIPESH ALEJANDRO Ot Z87.891 PERSONAL HISTORY OF NICOTINE DEPENDENCE 03/07/2016 DARIEL ABRAHAM PATRICIO Blankenship Ot N13.1 HYDRONEPHROSIS W URETERAL STRICTURE, NEC 03/07/2016 DARIEL ABRAHAM PATRICIO Krzysztof Ot 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, SECOND T 03/07/2016 DARIEL ABRAHAM PATRICIO Blankenship Ot O99.89 OTH DISEASES AND CONDITIONS COMPL PREG/C 03/07/2016 DARIEL ABRAHAM PATRICIO Blankenship Ot R09.89 OTH SYMPTOMS AND SIGNS INVOLVING THE CIR 03/08/2016 DARIEL ABRAHAM PATRICIO Blankenship Ot O34.21 MATERNAL CARE FOR SCAR FROM PREVIOUS RAKESH 03/08/2016 DARIEL ABRAHAM PATRICIO Krzysztof Ot 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, SECOND T 03/08/2016 DARIEL ABRAHAM PATRICIO Blankenship Ot R09.89 OTH SYMPTOMS AND SIGNS INVOLVING THE CIR 03/09/2016 DARIEL ABRAHAM PATRICIO Blankenship Ot N13.1 HYDRONEPHROSIS W URETERAL STRICTURE, NEC [...] SYMPTOMS AND SIGNS INVOLVING THE CIR 07/05/2016 NESSA REDDING MD Ot M54.5 LOW BACK PAIN 07/05/2016 NESSA REDDING MD Ot O99.89 OTH DISEASES AND CONDITIONS COMPL PREG/C 07/05/2016 NESSA REDDING MD Ot Z3A.32 32 WEEKS GESTATION OF 07/10/2016 NESSA REDDING MD Ot M54.5 LOW BACK PAIN 07/10/2016 NESSA REDDING MD Ot O99.89 OTH DISEASES AND CONDITIONS COMPL PREG/C 07/10/2016 NESSA REDDING MD Ot Z3A.32 32 WEEKS GESTATION OF 07/10/2016 [...] SYMPTOMS AND SIGNS INVOLVING THE CIR 07/12/2016 NESSA REDDING MD, Ot M54.5 LOW BACK PAIN 07/12/2016 NESSA REDDING MD Ot O99.89 OTH DISEASES AND CONDITIONS COMPL PREG/C 07/12/2016 NESSA REDDING MD Ot Z3A.32 32 WEEKS GESTATION OF 07/24/2016 DYLON REYNOSO MD, Ot O47.9 FALSE LABOR, UNSPECIFIED 07/24/2016 DYLON REYNOSO MD, Ot.35 35 WEEKS GESTATION OF 07/27/2016 DYLON REYNOSO MD, Ot O47.9 FALSE LABOR, UNSPECIFIED 07/27/2016 DYLON REYNOSO MD, Ot.00 WEEKS OF GESTATION OF NOT SPEC 07/27/2016 DYLON REYNOSO MD, Ot O47.9 FALSE LABOR, UNSPECIFIED 07/27/2016 DYLON REYNOSO MD, Ot.35 35 WEEKS GESTATION OF 08/05/2016 FENECH DO PATRICIO S Ot O26.893 OTH RELATED CONDITIONS, THIRD 08/05/2016 FENECH DO, PATRICIO S Ot O34.211 MATERN CARE FOR LOW TRANSVERSE SCAR FROM 08/05/2016 FENECH DOPATRICIO Ot R10.2 PELVIC AND PERINEAL PAIN 08/05/2016 MELODYECH DOPATRICIO Ot Z3A.37 37 WEEKS GESTATION OF 10/18/2016 DARIEL DOPATRICIO S Ot N13.1 HYDRONEPHROSIS W URETERAL STRICTURE, NEC 10/18/2016 FENECH DO, PATRICIO S Ot 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, SECOND T 10/18/2016 MELODYECH DO, PATRICIO S Ot O99.89 OTH DISEASES AND CONDITIONS COMPL PREG/C 10/18/2016 FENECH DO, PATRICIO S Ot R09.89 OTH SYMPTOMS AND SIGNS INVOLVING THE CIR 10/18/2016 FENECH DO, PATRICIO S Ot O34.21 MATERNAL CARE FOR SCAR FROM PREVIOUS RAKESH 10/18/2016 MELODYECH DOPATRICIO S Ot 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, SECOND T 10/18/2016 MELODYECH DOPATRICIO S Ot R09.89 OTH SYMPTOMS AND SIGNS INVOLVING THE CIR 10/19/2016 MELODYECH DOPATRICIO Ot N80.9 ENDOMETRIOSIS, UNSPECIFIED 10/19/2016 FENECH DOPATRICIO S Ot Z01.812 ENCOUNTER FOR PREPROCEDURAL LABORATORY E 10/20/2016 MELODYECH DO, PATRICIO S Ot N80.9 ENDOMETRIOSIS, UNSPECIFIED 10/20/2016 FENECH DO, PATRICIO S Ot Z01.812 ENCOUNTER FOR PREPROCEDURAL LABORATORY E 10/26/2016 DARIEL DO, PATRICIO Blankenship Ot N13.1 HYDRONEPHROSIS W URETERAL STRICTURE, NEC 10/26/2016 MELODYECH DOPATRICIO S Ot 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, SECOND T 10/26/2016 MELODYECH DOPATRICIO S Ot O99.89 OTH DISEASES AND CONDITIONS COMPL PREG/C 10/26/2016 MELODYECH DO, PATRICIO S Ot R09.89 OTH SYMPTOMS AND SIGNS INVOLVING THE CIR 10/26/2016 FENECH DOPATRICIO S Ot O34.21 MATERNAL CARE FOR SCAR FROM PREVIOUS RAKESH 10/26/2016 MELODYECH DOPATRICIO S Ot 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, SECOND T 10/26/2016 FENECH DOPATRICIO S Ot R09.89 OTH SYMPTOMS AND SIGNS INVOLVING THE CIR 10/27/2016 FENECH DOPATRICIO S Ot 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 ADHESIONS (POST 10/27/2016 FENECH DOPATRICIO S Ot N94.5 SECONDARY DYSMENORRHEA 10/27/2016 DARIEL PATRICIO ABRAHAM S Ot R10.2 PELVIC AND PERINEAL PAIN 10/27/2016 PATRICIO VIEIRA DO Ot R33.9 RETENTION OF URINE, UNSPECIFIED 10/27/2016 PATRICIO VIEIRA DO Ot Z87.42 PERSONAL HISTORY OF OTH DISEASES OF THE 10/30/2016 PRESLEY ABRAHAM ANGEL Ot F17.210 NICOTINE DEPENDENCE, CIGARETTES, UNCOMPL 10/30/2016 PRESLEY DO ANGEL Ot K04.7 PERIAPICAL ABSCESS WITHOUT SINUS 10/30/2016 SHERWOOD DO, ANGEL Ot K59.09 OTHER CONSTIPATION 10/30/2016 SHERWOOD DO, ANGEL Ot L03.211 CELLULITIS OF FACE 10/30/2016 SHERWOOD DO ANGEL Ot R79.89 OTHER SPECIFIED ABNORMAL FINDINGS OF BLO 10/30/2016 PRESLEY DO ANGEL Ot F17.210 NICOTINE DEPENDENCE, CIGARETTES, UNCOMPL 10/30/2016 PRESLEY DO ANGEL Ot K04.7 PERIAPICAL ABSCESS WITHOUT SINUS 10/30/2016 SHERWOOD DO ANGEL Ot K59.09 OTHER CONSTIPATION 10/30/2016 SHERWOOD DO, ANGEL Ot L03.211 CELLULITIS OF FACE 10/30/2016 SHERWOOD DO ANGEL Ot R79.89 OTHER SPECIFIED ABNORMAL FINDINGS OF BLO 10/30/2016 MELODYTESFAYE PATRICIO ABRAHAM S Ot 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 ADHESIONS (POST 10/30/2016 MELODYPATRICIO CARLIN DO S Ot N94.5 SECONDARY DYSMENORRHEA 10/30/2016 PATRICIO VIEIRA DO S Ot R10.2 PELVIC AND PERINEAL PAIN 10/30/2016 PATRICIO VIEIRA DO Ot R33.9 RETENTION OF URINE, UNSPECIFIED 10/30/2016 PATRICIO VIEIRA DO Ot Z87.42 PERSONAL HISTORY OF OTH DISEASES OF THE 11/01/2016 PATRICIO VIEIRA DO S Ot 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 ADHESIONS (POST 11/01/2016 PATRICIO VIEIRA DO S Ot N94.5 SECONDARY DYSMENORRHEA 11/01/2016 PATRICIO VIEIRA DO S Ot R10.2 PELVIC AND PERINEAL PAIN 11/01/2016 PATRICIO VIEIRA DO S Ot R33.9 RETENTION OF URINE, UNSPECIFIED 11/01/2016 PATRICIO VIEIRA DO Ot Z87.42 PERSONAL HISTORY OF OTH DISEASES OF THE 11/03/2016 PATRICIO VIEIRA DO S Ot N13.1 HYDRONEPHROSIS W URETERAL STRICTURE, NEC 11/03/2016 MELODYECH DO, PATRICIO S Ot 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, SECOND T 11/03/2016 DARIEL DO, PATRICIO S Ot O99.89 OTH DISEASES AND CONDITIONS COMPL PREG/C 11/03/2016 DARIEL DO PATRICIO S Ot R09.89 OTH SYMPTOMS AND SIGNS INVOLVING THE CIR 11/03/2016 DARIEL DO PATRICIO S Ot O34.21 MATERNAL CARE FOR SCAR FROM PREVIOUS RAKESH 11/03/2016 DARIEL DO, PATRICIO S Ot 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, SECOND T 11/03/2016 DARIEL DO PATRICIO S Ot R09.89 OTH SYMPTOMS AND SIGNS INVOLVING THE CIR 11/07/2016 SANAZ SHERWOOD DOI Ot F17.210 NICOTINE DEPENDENCE, CIGARETTES, UNCOMPL 11/07/2016 SANAZ SHERWOOD DOI Ot K04.7 PERIAPICAL ABSCESS WITHOUT SINUS 11/07/2016 SANAZ SHERWOOD DOI Ot K59.09 OTHER CONSTIPATION 11/07/2016 PRESLEY ABRAHAM ANGEL Ot L03.211 CELLULITIS OF FACE 11/07/2016 PRESLEY ABRAHAM ANGEL Ot R79.89 OTHER SPECIFIED ABNORMAL FINDINGS OF BLO 03/15/2017 DARIEL ABRAHAM PATRICIO S Ot N13.1 HYDRONEPHROSIS W URETERAL STRICTURE, NEC 03/15/2017 DARIEL DO, PATRICIO S Ot 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, SECOND T 03/15/2017 DARIEL DO PATRICIO S Ot O99.89 OTH DISEASES AND CONDITIONS COMPL PREG/C 03/15/2017 DARIEL DO PATRICIO S Ot R09.89 OTH SYMPTOMS AND SIGNS INVOLVING THE CIR 03/15/2017 DARIEL DO PATRICIO S Ot O34.21 MATERNAL CARE FOR SCAR FROM PREVIOUS RAKESH 03/15/2017 DARIEL DO, PATRICIO S Ot 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, SECOND T 03/15/2017 DARIEL DOPATRICIO S Ot R09.89 OTH SYMPTOMS AND SIGNS INVOLVING THE CIR 03/17/2017 LASHONDA JOINER MD Ot 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, THORACIC REGIO 03/17/2017 LASHONDA JOINER MD Ot M54.2 CERVICALGIA 03/17/2017 LASHONDA JOINER MD Ot M54.5 LOW BACK PAIN 03/17/2017 LASHONDA JOINER MD Ot M54.6 PAIN IN THORACIC SPINE 03/30/2017 LASHONDA JOINER MD Ot 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, THORACIC REGIO 03/30/2017 LASHONDA JOINER MD Ot M54.2 CERVICALGIA 03/30/2017 LASHONDA JOINER MD Ot M54.5 LOW BACK PAIN 03/30/2017 LASHONDA JOINER MD Ot M54.6 PAIN IN THORACIC SPINE 04/19/2017 FENECH DO, PATRICIO S Ot N13.1 HYDRONEPHROSIS W URETERAL STRICTURE, NEC 04/19/2017 FENECH DO, PATRICIO S Ot 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, SECOND T 04/19/2017 FENECH DO, PATRICIO S Ot O99.89 OTH DISEASES AND CONDITIONS COMPL PREG/C 04/19/2017 FENECH DO, PATRICIO S Ot R09.89 OTH SYMPTOMS AND SIGNS INVOLVING THE CIR 04/19/2017 FENECH DO, PATRICIO S Ot O34.21 MATERNAL CARE FOR SCAR FROM PREVIOUS RAKESH 04/19/2017 FENECH DO, PATRICIO S Ot 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, SECOND T 04/19/2017 FENECH DO, PATRICIO S Ot R09.89 OTH SYMPTOMS AND SIGNS INVOLVING THE CIR 04/19/2017 LASHONDA JOINER MD Ot 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, THORACIC REGIO 04/19/2017 LASHONDA JOINER MD Ot M54.2 CERVICALGIA 04/19/2017 LASHONDA JOINER MD Ot M54.5 LOW BACK PAIN 04/19/2017 LASHONDA JOINER MD Ot M54.6 PAIN IN THORACIC SPINE 04/25/2017 LASHONDA JOINER MD Ot M54.5 LOW BACK PAIN 04/25/2017 LASHONDA JOINER MD Ot R93.7 ABNORMAL FINDINGS ON DIAGNOSTIC IMAGING 05/03/2017 LASHONDA JOINER MD Ot M54.5 LOW BACK PAIN 05/03/2017 LASHONDA JOINER MD Ot R93.7 ABNORMAL FINDINGS ON DIAGNOSTIC IMAGING 10/09/2017 LASHONDA JOINER 780.79 OTHER MALAISE AND FATIGUE 10/09/2017 LASHONDA JOINER 787.02 NAUSEA ALONE 10/09/2017 LASHONDA JOINER P96.89 OTHER SPECIFIED CONDITIONS ORIGINATING IN THE PERIOD 10/09/2017 LASHONDA JOINER W R11.0 NAUSEA 10/09/2017 LASHONDA JOINER W 780.79 OTHER MALAISE AND FATIGUE 10/09/2017 LASHONDA JOINER W 787.02 NAUSEA ALONE 10/09/2017 LASHONDA JOINER W P96.89 OTHER SPECIFIED CONDITIONS ORIGINATING IN THE PERIOD 10/09/2017 LASHONDA JOINER R11.0 NAUSEA 10/09/2017 LASHONDA JOINER W 780.79 [...] AND FATIGUE 10/10/2017 W R53.83 OTHER FATIGUE 01/24/2018 PATRICIO VIEIRA DO Ot N13.1 HYDRONEPHROSIS W URETERAL STRICTURE, NEC 01/24/2018 PATRICIO VIEIRA DO Ot 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, SECOND T 01/24/2018 PATRICIO VIEIRA DO Ot O99.89 OTH DISEASES AND CONDITIONS COMPL PREG/C 01/24/2018 PATRICIO VIEIRA DO Ot R09.89 OTH SYMPTOMS AND SIGNS INVOLVING THE CIR 01/24/2018 PATRICIO VIEIRA DO Ot O34.21 MATERNAL CARE FOR SCAR FROM PREVIOUS RAKESH 01/24/2018 PATRICIO VIEIRA DO Ot 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, SECOND T 01/24/2018 PATRICIO VIEIRA DO Ot R09.89 OTH SYMPTOMS AND SIGNS INVOLVING THE CIR 01/24/2018 LASHONDA JOINER MD Ot 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, THORACIC REGIO 01/24/2018 LASHONDA JOINER MD Ot M54.2 CERVICALGIA 01/24/2018 LASHONDA JOINER MD Ot M54.5 LOW BACK PAIN 01/24/2018 RHYS MCINTYRE, LASHONDA Duarte Ot M54.6 PAIN IN THORACIC SPINE 01/24/2018 LASHONDA JOINER MD Ot M54.5 LOW BACK PAIN 01/24/2018 LASHONDA JOINER MD Ot R93.7 ABNORMAL FINDINGS ON DIAGNOSTIC IMAGING 01/24/2018 ROBERT LARKIN MD Ot F32.9 MAJOR DEPRESSIVE DISORDER, SINGLE EPISOD 01/24/2018 ROBERT LARKIN MD Ot F41.9 ANXIETY DISORDER, UNSPECIFIED 01/24/2018 ROBERT LARKIN MD Ot G43.909 MIGRAINE, UNSP, NOT INTRACTABLE, WITHOUT 01/24/2018 ROBERT LARKIN MD Ot J45.909 UNSPECIFIED ASTHMA, UNCOMPLICATED 01/24/2018 ROBERT LARKIN MD Ot K52.9 NONINFECTIVE GASTROENTERITIS AND COLITIS 01/24/2018 ROBERT LARKIN MD Ot R11.10 VOMITING, UNSPECIFIED 01/24/2018 ROBERT LARKIN MD Ot Z82.49 FAMILY HX OF ISCHEM HEART DIS AND OTH DI 01/24/2018 ROBERT LARKIN MD Ot Z86.73 PRSNL HX OF TIA (TIA), AND CEREB INFRC W 01/24/2018 ROBERT LARKIN MD Ot Z87.448 PERSONAL HISTORY OF OTHER DISEASES OF UR 01/24/2018 ROBERT LARKIN MD Ot Z87.59 PERSONAL HISTORY OF COMP OF PREG, CHLDBR 01/24/2018 ROBERT LARKIN MD Ot Z87.891 PERSONAL HISTORY OF NICOTINE DEPENDENCE 01/24/2018 ROBERT LARKIN MD Ot Z90.710 ACQUIRED ABSENCE OF BOTH CERVIX AND UTER 01/26/2018 ROBERT LARKIN MD Ot F32.9 MAJOR DEPRESSIVE DISORDER, SINGLE EPISOD 01/26/2018 ROBERT LARKIN MD Ot F41.9 ANXIETY DISORDER, UNSPECIFIED 01/26/2018 ROBERT LARKIN MD Ot G43.909 MIGRAINE, UNSP, NOT INTRACTABLE, WITHOUT 01/26/2018 ROBERT LARKIN MD Ot J45.909 UNSPECIFIED ASTHMA, UNCOMPLICATED 01/26/2018 ROBERT LARKIN MD Ot K52.9 NONINFECTIVE GASTROENTERITIS AND COLITIS 01/26/2018 ROBERT LARKIN MD Ot R11.10 VOMITING, UNSPECIFIED 01/26/2018 ROBRET LARKIN MD Ot Z82.49 FAMILY HX OF ISCHEM HEART DIS AND OTH DI 01/26/2018 ROBERT LARKIN MD Ot Z86.73 PRSNL HX OF TIA (TIA), AND CEREB INFRC W 01/26/2018 ROBERT LARKIN MD, Ot Z87.448 PERSONAL HISTORY OF OTHER DISEASES OF UR 01/26/2018 ROBERT LARKIN MD, Ot Z87.59 PERSONAL HISTORY OF COMP OF PREG, CHLDBR 01/26/2018 ROBERT LARKIN MD Ot Z87.891 PERSONAL HISTORY OF NICOTINE DEPENDENCE 01/26/2018 ROBERT LARKIN MD Ot Z90.710 ACQUIRED ABSENCE OF BOTH CERVIX AND UTER 02/04/2018 STACI MASSEY Ot R10.11 RIGHT UPPER QUADRANT PAIN 02/21/2018 SILVESTRE BELL W 620.2 OTHER AND UNSPECIFIED OVARIAN CYST 02/21/2018 SILVESTRE BELL W 787.01 NAUSEA WITH VOMITING 02/21/2018 SILVESTRE BELL A 789.01 ABDOMINAL PAIN, RIGHT UPPER QUADRANT 02/21/2018 ELIJAH BELLUA W 791.9 OTHER NONSPECIFIC FINDINGS ON EXAMINATION OF URINE 02/21/2018 SILVESTRE BELL W N83.201 UNSPECIFIED OVARIAN CYST, RIGHT SIDE 02/21/2018 ELIJAH BELLUA A R10.11 RIGHT UPPER QUADRANT PAIN 02/21/2018 ELIJAH BELLUA W R11.2 NAUSEA WITH VOMITING, UNSPECIFIED 02/21/2018 ELIJAH BELLUA W R82.99 OTHER ABNORMAL FINDINGS IN URINE 02/22/2018 STACI MASSEYP Ot R10.11 RIGHT UPPER QUADRANT PAIN 03/05/2018 Wilian Angel A 530.81 ESOPHAGEAL REFLUX 03/05/2018 Wilian Angel W 535.50 UNSPECIFIED GASTRITIS AND GASTRODUODENITIS, WITHOUT MENTION OF HEMORRHAGE 03/05/2018 Wilian Angel W 552.3 DIAPHRAGMATIC HERNIA WITH OBSTRUCTION 03/05/2018 Wilian Angel A K21.9 GASTRO-ESOPHAGEAL REFLUX DISEASE WITHOUT ESOPHAGITIS 03/05/2018 Wilian Angel W K29.60 OTHER GASTRITIS WITHOUT BLEEDING 03/05/2018 Wilian Angel W K44.9 DIAPHRAGMATIC HERNIA WITHOUT OBSTRUCTION OR GANGRENE 09/26/2018 DARIEL ABRAHAM, PATRICIO [place]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
== END 2019-03-03 17:38 | disposition left against medical advice (07) ==
LOC: EDUNIT# 16:52 → ER 16:53
DX: T74.21XA Adult sexual abuse, confirmed, initial encounter (principal); R25.8 Other abnormal involuntary movements; R45.1 Restlessness and agitation; F10.10 Alcohol abuse, uncomplicated; J45.909 Unspecified asthma, uncomplicated; G43.909 Migraine, unspecified, not intractable, without status migrainosus; F41.9 Anxiety disorder, unspecified; F32.9 Major depressive disorder, single episode, unspecified; R40.2142 Coma scale, eyes open, spontaneous, at arrival to emergency department; R40.2252 Coma scale, best verbal response, oriented, at arrival to emergency department; R40.2362 Coma scale, best motor response, obeys commands, at arrival to emergency department; Z87.448 Personal history of other diseases of urinary system; Z86.73 Personal history of transient ischemic attack (TIA), and cerebral infarction without residual deficits; Z82.49 Family history of ischemic heart disease and other diseases of the circulatory system; Z87.891 Personal history of nicotine dependence; Z90.710 Acquired absence of both cervix and uterus; Z98.890 Other specified postprocedural states
CPT/HCPCS: 93005

== ENCOUNTER 2019-03-03 19:17 | Observation (INO) | payer MEDICAID ==
[~2019-03-03] VITALS: Ht 165.1 cm; Wt 80.5 kg
[2019-03-03] MEDS ORDERED: ZIPRASIDONE 20 MG INJ (GEODON) VIAL IM ONE ×2 (19:28→19:45)
[2019-03-03] MEDS ORDERED: NS IV 1000 ML 1,000 ML IV ONE (19:32)
[2019-03-03 19:58] LABS: BASOPHILS % (AUTO) 0 % (0-10); EOSINOPHILS # (AUTO) 0.1 10^3/uL (0.0-0.3); EOSINOPHILS % (AUTO) 1 % (0-10); HEMATOCRIT 39 % (35-52); HEMOGLOBIN 13.6 G/DL (11.5-16.0); LYMPHOCYTES # (AUTO) 3.1 X 10^3 (1.0-4.0); LYMPHOCYTES % (AUTO) 25 % (12-44); MEAN CORPUSCULAR HEMOGLOBIN 30 PG (25-34); MEAN CORPUSCULAR HGB CONC 35 G/DL (32-36); MEAN CORPUSCULAR VOLUME 85 FL (80-99); MEAN PLATELET VOLUME 9.2 FL (7.4-10.4); MONOCYTES # (AUTO) 1.1 X 10^3 (0.0-1.0); MONOCYTES % (AUTO) 9 % (0-12); NEUTROPHILS # (AUTO) 8.1 X 10^3 (1.8-7.8); NEUTROPHILS % (AUTO) 65 % (42-75); PLATELET COUNT 335 10^3/uL (130-400); RED CELL DISTRIBUTION WIDTH 12.3 % (10.0-14.5); WHITE BLOOD COUNT 12.4 10^3/uL (4.3-11.0)
[2019-03-03] MEDS ORDERED: LORazepam INJ 2 MG/ML (ATIVAN) VIAL ONE (19:58)
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
[2019-03-03] MEDS ORDERED: LORazepam INJ 2 MG/ML (ATIVAN) VIAL IVP ONE ×2 (20:00→22:45)
[2019-03-03 20:13] LABS: ALANINE AMINOTRANSFERASE 15 U/L (0-55); ALBUMIN 4.2 GM/DL (3.2-4.5); ALKALINE PHOSPHATASE 69 U/L (40-136); BILIRUBIN,TOTAL 1.4 MG/DL (0.1-1.0); BUN/CREATININE RATIO 18; CALCIUM 9.7 MG/DL (8.5-10.1); CARBON DIOXIDE 19 MMOL/L (21-32); CHLORIDE 107 MMOL/L (98-107); CREATININE SERUM 1.06 MG/DL (0.60-1.30); GFR ESTIMATED > 60; GLUCOSE 87 MG/DL (70-105); POTASSIUM 3.4 MMOL/L (3.6-5.0); SALICYLATE < 5.0 MG/DL (5.0-20.0); SODIUM 139 MMOL/L (135-145); TOTAL PROTEIN 7.8 GM/DL (6.4-8.2)
[2019-03-03] MEDS ORDERED: LACTATED RINGERS 1,000 ML IV ONE (20:31)
[2019-03-03 20:33] LABS: BILIRUBIN,URINE NEGATIVE (NEGATIVE); CLARITY,URINE CLEAR; COLOR,URINE AMBER; GLUCOSE, URINE (UA) NEGATIVE (NEGATIVE); KETONES,URINE 2+ (NEGATIVE); LEUKOCYTE ESTERASE ,URINE 1+ (NEGATIVE); NITRITE,URINE NEGATIVE (NEGATIVE); PH,URINE 6 (5-9); PROTEIN,URINE 2+ (NEGATIVE); UROBILINOGEN,URINE NORMAL (NORMAL)
[2019-03-03 20:33] LABS: ACETAMINOPHEN < 10 UG/ML (10-30)
[2019-03-03 20:41] LABS: BACTERIA,URINE FEW /HPF
[2019-03-03 20:46] LABS: AMPHETAMINE SCREEN, URINE POSITIVE (NEGATIVE); BENZODIAZEPINES SCREEN URINE NEGATIVE (NEGATIVE); COCAINE SCREEN URINE NEGATIVE (NEGATIVE); METHAMPHETAMINE SCREEN URINE S POSITIVE (NEGATIVE)
[2019-03-03 20:47] LABS: BARBITURATE SCREEN URINE POSITIVE (NEGATIVE); CANNABINOID SCREEN, URINE NEGATIVE (NEGATIVE); METHADONE STAT NEGATIVE (NEGATIVE); OPIATE SCREEN URINE NEGATIVE (NEGATIVE); OXYCODONE STAT NEGATIVE (NEGATIVE); PROPOXYPHENE STAT NEGATIVE (NEGATIVE); TRICYCLIC ANTIDEPRESSANTS SCRE NEGATIVE (NEGATIVE)
[2019-03-04] VITALS (16 sets, daily range): BP systolic 78–108; BP diastolic 49–77
--- NOTE | 2019-03-04 00:48 | NUR ---
PHYSICIAN IN ROOM TRYING TO WAKE PT UP TO DISCHARGE. PT STILL EXTREMELY LETHARGIC, NOT FOLLOWING COMMANDS.
[2019-03-04] MEDS ORDERED: NS IV 1000 ML 1,000 ML ONE (00:54)
[2019-03-04] MEDS ORDERED: NS IV 1000 ML 1,000 ML IV ONE (00:57)
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
--- NOTE | 2019-03-04 02:21 | NUR ---
LEMUEL LEMUS admitted to room CU7-1, with an admitting diagnosis of METH ABUSE/OVERDOSE , on 03/04/19 from ED via [facility], accompanied by STAFF. LEMUEL LEMUS introduced to surroundings, call light, bed controls, phone, TV, temperature control, lights, meal times, smoking policy, visitor policy, side rail policy, bathrooms and showers. Patient Rights given to patient in the handbook.LEMUEL LEMUS verbalizes understanding that [facility] is not responsible for the loss or damage to any personal effects or valuables that are kept in the patients posession during their hospitalization.
[2019-03-04] MEDS ORDERED: LORazepam INJ 2 MG/ML (ATIVAN) VIAL IV PRN (03:00)
[2019-03-04] MEDS: NS IV 1000 ML 1,000 ML IV SCH ×2 (03:09→07:43)
[2019-03-04 04:04] LABS: BASOPHILS % (AUTO) 0 % (0-10); EOSINOPHILS # (AUTO) 0.1 10^3/uL (0.0-0.3); EOSINOPHILS % (AUTO) 3 % (0-10); HEMATOCRIT 37 % (35-52); HEMOGLOBIN 12.3 G/DL (11.5-16.0); LYMPHOCYTES % (AUTO) 40 % (12-44); MEAN CORPUSCULAR HEMOGLOBIN 29 PG (25-34); MEAN CORPUSCULAR HGB CONC 33 G/DL (32-36); MEAN CORPUSCULAR VOLUME 88 FL (80-99); MEAN PLATELET VOLUME 9.7 FL (7.4-10.4); MONOCYTES # (AUTO) 0.5 X 10^3 (0.0-1.0); MONOCYTES % (AUTO) 10 % (0-12); NEUTROPHILS # (AUTO) 2.3 X 10^3 (1.8-7.8); NEUTROPHILS % (AUTO) 47 % (42-75); PLATELET COUNT 271 10^3/uL (130-400); RED CELL DISTRIBUTION WIDTH 12.4 % (10.0-14.5)
[2019-03-04 04:26] LABS: ALANINE AMINOTRANSFERASE 13 U/L (0-55); ALBUMIN 3.6 GM/DL (3.2-4.5); ALKALINE PHOSPHATASE 59 U/L (40-136); BILIRUBIN,TOTAL 1.4 MG/DL (0.1-1.0); BUN/CREATININE RATIO 22; CALCIUM 8.9 MG/DL (8.5-10.1); CARBON DIOXIDE 19 MMOL/L (21-32); CHLORIDE 109 MMOL/L (98-107); CREATININE SERUM 0.82 MG/DL (0.60-1.30); GFR ESTIMATED > 60; GLUCOSE 64 MG/DL (70-105); MAGNESIUM 2.1 MG/DL (1.8-2.4); PHOSPHORUS 3.9 MG/DL (2.3-4.7); POTASSIUM 3.4 MMOL/L (3.6-5.0); SODIUM 140 MMOL/L (135-145); TOTAL PROTEIN 6.7 GM/DL (6.4-8.2)
--- NOTE | 2019-03-04 05:51 | Diagnostic Imaging Report ---
PROCEDURE: CT head without contrast. TECHNIQUE: Multiple contiguous axial images were obtained through the brain without the use of intravenous contrast. Auto Exposure Controls were utilized during the CT exam to meet ALARA standards for radiation dose reduction. INDICATION: Altered mental status, headache There is no mass, shift of midline or hemorrhage to suggest an acute intracranial abnormality. The ventricles are not abnormally dilated and stable in size compared to prior exam of 02/23/2012. The bone windows show no evidence for a fracture or for destructive lesion. The orbits are symmetrical and within normal limits. The sinuses are generally clear. IMPRESSION: 1. There is no evidence for an acute intracranial abnormality. 2. If clinical concern regarding an underlying abnormality persists, then MRI would be recommended for further study. Dictated by: Dictated on workstation # [id number]
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
--- NOTE | 2019-03-04 10:58 | NUR ---
CM/SS attempted to speak with the patient, she is sleeping at this time. Will try to re-visit later.
--- NOTE | 2019-03-04 12:04 | NUR ---
CM/LALI spoke with the patient, she is leaving [facility] and has already signed paperwork. Discussed and provided her with information on [facility], [facility], and counseling services in [facility].
--- NOTE | 2019-03-04 12:48 | NUR ---
1145 PT AWAKE TALKING WITH FAMILY AND WANTING TO LEAVE.
--- NOTE | 2019-03-04 12:55 | NUR ---
1200 PT SIGNED AMA PAPERS, VERBALIZES UNDERSTANDING OF AMA PAPERS. IV D/C AND JESÚS REMOVED.
--- NOTE | 2019-03-04 13:42 | NUR ---
UNABLE TO SPEAK WITH THE PATIENT ABOUT HER MEDICATIONS THIS MORNING, NO RECENT RECORDS HAVE BEEN FILLED ACCORDING TO [facility]. I REMOVED THE CONTROLLED SUBSTANCES FROM HER PREVIOUSLY REPORTED MED REC WELL THE MEDS THAT WERE ORDERED AT OLD VISITS. AT THIS TIME NO MEDICATIONS HAVE BEEN REPORTED.
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
== END 2019-03-04 12:55 | disposition left against medical advice (07) ==
LOC: EDUNIT# 19:17 → ER 19:18 → ICU 19:19 → UNDOADMOB 03-04 00:56 → ICU 03-04 00:56 → UNDODISOB 03-04 12:23
PROVIDERS: ADMIT Internal Medicine; ATTEND Internal Medicine
DX: F15.10 Other stimulant abuse, uncomplicated (principal); R41.82 Altered mental status, unspecified; R53.83 Other fatigue; F13.90 Sedative, hypnotic, or anxiolytic use, unspecified, uncomplicated; Z87.891 Personal history of nicotine dependence; F41.9 Anxiety disorder, unspecified; F32.9 Major depressive disorder, single episode, unspecified; Z79.899 Other long term (current) drug therapy
CPT/HCPCS: 36415; 51702; 70450; 80053; 80306; 80320; 80329; 81000; 83735; 84100; 85025; 86141; 87077; 87088; 93041; 96361; 96372; 96374; 96376

== ENCOUNTER 2022-10-24 14:45 | Emergency (ER) | payer MEDICAID ==
[~2022-10-24] VITALS: Ht 160 cm; Wt 85.7 kg
[~2022-10-24 14:45] MED LIST changes: +BUTA-235 PO; -BUTA1TAB9 PO; -HYDR-3820 PO; -OXYC-471 PO; +OXYC1TAB11 PO; -PHEN37.53 PO; +PHEN37.58 PO
[2022-10-24] MEDS ORDERED: LIDOCAINE 1% INJ 20 ML VIAL INJ ONE (15:00)
[2022-10-24] MEDS ORDERED: TETANUS,DIPTH,PERTUSS P/F (BOOSTRIX) 0.5 ML VIAL IM ONE (15:00)
--- NOTE | 2022-10-24 15:00 | ED Upper Extremity ---
General Stated Complaint: FALL IN GARAGE | LT ARM INJ Source: patient Exam Limitations: no limitations History of Present Illness Date Seen by Provider: Oct 24, 2022 Time Seen by Provider: 14:55 Initial Comments Patient is a 32-year-old female who presents to the hospital for evaluation of a left arm laceration that occurred a few hours prior to arrival when she fell on some metal in her garage. She states there is some renovating occurring in the house and there was some construction debris in the garage. Patient states she slipped causing the fall. She denies any loss of consciousness or head injury. She states the wound was bleeding but was controlled with direct pressure. Patient is initially unsure of the date of her last tetanus immunization but shortly after I left the room she told nursing that she had a tetanus immunization 2 and half years ago. She also states she has some right ankle pain where she twisted it falling. Allergies and Home Medications Allergies Coded Allergies: No Known Drug Allergies (Unverified , 10/19/16) Patient Home Medication List Home Medication List Reviewed: Yes Oxycodone HCl/Acetaminophen (Oxycodone-Acetaminophen 5-325) 5 Mg-325 Mg Tablet, 1 EACH PO Q4H PRN for PAIN-SEVERE Prescribed by: Becca Larkin on 10/24/22 6628 Review of Systems Constitutional: no symptoms reported EENTM: no symptoms reported Respiratory: no symptoms reported Cardiovascular: no symptoms reported Gastrointestinal: no symptoms reported Genitourinary: no symptoms reported Musculoskeletal: see HPI Skin: see HPI Past Ratloqv-Kcpvci-Wycyev Hx Immunizations Up To Date Tetanus Booster (TDap): More than 5yrs PED Vaccines UTD: Yes Seasonal Allergies Seasonal Allergies: No Past Medical History Surgeries: Yes (CS X4) Section, Hysterectomy Respiratory: Yes ( A CHILD) Asthma Cardiac: No Neurological: Yes ("SEIZURE ACTIVITY"- RELATED) Headaches /Migraines, TIA Reproductive Disorders: Yes (CPP, DYSMENORRHIA) Female Reproductive Disorders: Menstrual Problems, Endometriosis, Ovarian Cyst Sexually Transmitted Disease: No HIV/AIDS: No Genitourinary: Yes Kidney Infection, Bladder Infection Gastrointestinal: No Musculoskeletal: No Endocrine: No HEENT: No Loss of Vision: Bilateral Hearing Impairment: Denies Cancer: No Psychosocial: Yes Anxiety, Depression Integumentary: No Recent Skin Changes Blood Disorders: No Adverse Reaction/Blood Tranf: No Family Medical History Diabetes mellitus (grandmother) Family history: Hypertension 19 MOTHER Hereditary disease daughter (Alec Henry's syndrome) Stroke 19 FATHER No Pertinent Family Hx Physical Exam Vital Signs Vital Signs - First Documented 10/24/22 14:50 Temp 35.2 Pulse 117 Resp 18 B/P (MAP) 113/66 (82) Pulse Ox 100 O2 Delivery Room Air Capillary Refill : Height, Weight, BMI Height: 5'5.00" Weight: 177lbs. 6.4oz. 80.963496nq; 29.5 BMI Method:Estimated General Appearance: WD/WN, no apparent distress HEENT: PERRL/EOMI, normal ENT inspection, TMs normal, pharynx normal Neck: non-tender, full range of motion Cardiovascular: regular rate, rhythm Respiratory: lungs clear, normal breath sounds Gastrointestinal: normal bowel sounds, non tender, soft Elbow/Forearm: soft tissue tenderness Neurologic/Tendon: normal sensation, normal motor functions, normal tendon functions, no evidence tendon injury Neurologic/Psychiatric: no motor/sensory deficits, alert, normal mood/affect, oriented x 3 Mild swelling noted to the lateral right ankle with bony tenderness to palpation Procedures/Interventions Wound Location: Upper Extremities Other Wound Location Anteromedial left forearm Wound's Depth, Shape: linear, sub Q Wound Explored: no foreign body removed Irrigated w/ Saline (ccs): 500 Betadine Prep?: No Anesthesia: 1% Lidocaine Volume Anesthetic (ccs): 11 Suture: Ethlion Suture Size: 3-0, 4-0 Number of Sutures: 18 Layer Closure?: 1 Number Deep Layer Sutures: 0 Sterile Dressing Applied?: Yes Progress Laceration extended to the skin and subcutaneous fat; no muscle or tendon involvement appreciated; patient retains flexor function of her digits and wrist of the left upper extremity; radial and ulnar pulses are strong and regular in the left upper extremity Progress/Results/Core Measures Results/Orders My Orders Medications Given in ED Vital Signs/I&O Progress Progress Note : Progress Note Patient is nontoxic and well-hydrated on exam. Vital signs are reassuring. Patient does have a deep laceration noted to the anterior aspect of the left forearm. There appears to be extension through the skin and subcutaneous tissue. There appears to be no violation of the muscle bodies. No visible injury to the tendons or any vascular structures. Patient is able to flex her fingers and wrist on the left upper extremity. Sensation is intact in the digits of the left hand. Left radial and ulnar pulses are strong, brisk, and symmetrical. Radiographs of the left forearm and right ankle were obtained. No acute osseous abnormality noted on the left forearm radiographs. Right ankle films notable for nondisplaced fibular fracture. Laceration was repaired as n oted separately. Patient tolerated well. Patient was given a walking boot and crutches and told to follow-up with orthopedics for further evaluation and treatment. Departure Impression Primary Impression: Closed right ankle fracture Qualified Codes: S82.891A - Other fracture of right lower leg, initial encounter for closed fracture Additional Impression: Laceration of left forearm Qualified Codes: S51.812A - Laceration without foreign body of left forearm, initial encounter Disposition: HOME, SELF-CARE Condition: Stable Departure-Patient Inst. Decision time for Depature: 16:40 Referrals: NO,LOCAL PHYSICIAN (PCP/Family) Primary Care Physician Patient Instructions: Ankle Fracture ED, Laceration Repair With Stitches ED Add. Discharge Instructions: You will need to have the sutures removed from your arm in 10-14 days. You will need to follow-up with orthopedics for further evaluation of your ankle fracture. Scripts Oxycodone HCl/Acetaminophen (Oxycodone-Acetaminophen 5-325) 5 Mg-325 Mg Tablet 1 EACH PO Q4H PRN for PAIN-SEVERE MDD 6 for 3 Days, #18 TAB 0 Refills Prov: BECCA LARKIN APRN 10/24/22 BECCA LARKIN APRN Oct 24, 2022 15:00
--- NOTE | 2022-10-24 15:40 | Diagnostic Imaging Report ---
INDICATION: Laceration. FINDINGS: There is a soft tissue injury to the anteromedial aspect of the forearm present. No retained opaque foreign body. No bony injury. IMPRESSION: Two-view left forearm shows soft tissue injury but no retained foreign body or fracture. Dictated by: Dictated on workstation # [id number]
--- NOTE | 2022-10-24 15:41 | Diagnostic Imaging Report ---
INDICATION: Injury with laceration. FINDINGS: A horizontal subtle lucency at the distal fibula with overlying soft tissue swelling is presumed a nondisplaced fracture as opposed to the remnant of the prior physis. No widening of the mortise. The medial and posterior malleoli, plafond, and talar dome are intact. IMPRESSION: Lateral swelling with a subtle nondisplaced horizontal fracture through the distal fibula. No other injury or foreign body. Dictated by: Dictated on workstation # [id number]
[2022-10-24] MEDS ORDERED: oxyCODONE/APAP 5/325MG (PERCOCET 5) TABLET PO ONE (16:45)
[2022-10-24] MEDS ORDERED: OXYC1TAB11 PO (16:46)
[2022-10-24 17:05] VITALS: BP 117/82
== END 2022-10-24 17:11 | disposition home or self-care (01) ==
LOC: EDUNIT# 14:45 → ER 14:47
DX: S82.64XA Nondisplaced fracture of lateral malleolus of right fibula, initial encounter for closed fracture (principal); S51.812A Laceration without foreign body of left forearm, initial encounter; Z28.310 Unvaccinated for COVID-19; W01.0XXA Fall on same level from slipping, tripping and stumbling without subsequent striking against object, initial encounter; X50.1XXA Overexertion from prolonged static or awkward postures, initial encounter; Y92.59 Other trade areas as the place of occurrence of the external cause
CPT/HCPCS: 73090; 73610